=== PATIENT | female | born 1965 | race Caucasian/White ===

== ENCOUNTER 2022-03-31 14:16 | Oncology outpatient (recurring) (ONCR) | payer SELFPAY ==
--- NOTE | 2022-03-31 15:20 | N.ONRAD NP_ITS ---
Radiation Oncology Consultation Patient Name: Giacomo Plunkett Date of : 1965 Date of Service: 03/31/2022 Attending Physician: Saul Bridegs M.D. Giacomo Plunkett was seen in consultation this afternoon at the request of Raoul Ervin M.D. for the post-operative management of a recently diagnosed squamous cell carcinoma of the back. She was evaluated at [facility] for a skin lesion on her back. An examination identified a semi-pedunculated pink mass located within the left scapular region measuring 12 cm. An excision with partial intermediate layered closure was performed Flex Silva M.D. on December 19, 2021. 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 The tumor invaded the subcutaneous tissue and extended to the edges of the specimen. The depth of invasion was estimated to be at least 4.8 cm by gross measurement. During a routine post-operative appointment on February 25, 2022, an umbilicated, flesh-colored lesion was present at the left infero-lateral aspect of the excision during 2 cm. The abnormality was excised with local anesthesia. The patient was evaluated for postoperative radiotherapy. I discussed with Ms. Plunkett The [place] [employer] on Cancer Staging for skin cancer and specifically the pathological stage III (T3N0) corresponding to her disease and The National Comprehensive Cancer Network Guidelines recommendation for consideration of adjuvant radiotherapy in patients with completely excised very high-risk squamous cell carcinoma. I also reviewed the risk stratification for squamous cell skin cancer specific to her clinical case that includes high-risk features such as size, depth of invasion (greater than 6 mm), positive margins, and degree of differentiation. I would endorse an approximate a 4 week course of hypofractionated radiotherapy after the wound has healed. She will return in 4 weeks for re-assessment. The potential toxicities of integumentary radiotherapy were discussed with the patient. The patient has verbalized understanding would like to proceed as recommended. The patient's medical treatment plan was discussed with Raoul Ervin M.D. Signed by: Dr. Saul Bridges 03/31/2022 3:18:25 PM
== END 2022-04-19 23:59 | disposition home or self-care (01) ==
PROVIDERS: PCP Electrodiagnostic Medicine; Visit Provider Radiology Radiation Oncology
DX: C44.529 Squamous cell carcinoma of skin of other part of trunk (principal); F17.210 Nicotine dependence, cigarettes, uncomplicated; Z90.89 Acquired absence of other organs
CPT/HCPCS: 99205

== ENCOUNTER 2022-05-08 14:29 | Oncology outpatient (recurring) (ONCR) | payer SELFPAY ==
--- NOTE | 2022-05-08 15:09 | ONCRAD EPV_ITS ---
Radiation Oncology Follow-Up Note Patient Name: Giacomo Plunkett Date of : 1965 Date of Service: 05/08/2022 Attending Physician: Saul Bridges M.D. Giacomo Plunkett returned for a wound assessment. She was evaluated at [facility] for a skin lesion on her back. An examination identified a semi-pedunculated pink mass located within the left scapular region measuring 12 cm. An excision with partial intermediate layered closure was performed Flex Silva M.D. on December 19, 2021. 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 The tumor invaded the subcutaneous tissue and extended to the edges of the specimen. The depth of invasion was estimated to be at least 4.8 cm by gross measurement. During a routine post-operative appointment on February 25, 2022, an umbilicated, flesh-colored lesion was present at the left infero-lateral aspect of the excision during 2 cm. The abnormality was excised with local anesthesia. On examination, the medial wound is healing by secondary intention. She will return in two weeks for re-evaluation. Signed by: Dr. Saul Bridges 05/08/2022 3:08:23 PM
== END 2022-05-20 23:59 | disposition home or self-care (01) ==
PROVIDERS: PCP Electrodiagnostic Medicine; Visit Provider Radiology Radiation Oncology
DX: C44.529 Squamous cell carcinoma of skin of other part of trunk (principal)
CPT/HCPCS: 99213

== ENCOUNTER 2022-05-29 14:48 | Oncology outpatient (recurring) (ONCR) | payer SELFPAY ==
--- NOTE | 2022-05-29 15:17 | ONCRAD EPV_ITS ---
Radiation Oncology Follow-Up Note Patient Name: Giacomo Plunkett Date of : 1965 Date of Service: 05/29/2022 Attending Physician: Saul Bridges M.D. Giacomo Plunkett returned for a wound evaluation. She was evaluated at [facility] for a skin lesion on her back. An examination identified a semi-pedunculated pink mass located within the left scapular region measuring 12 cm. An excision with partial intermediate layered closure was performed Flex Sliva M.D. on December 19, 2021. 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 The tumor invaded the subcutaneous tissue and extended to the edges of the specimen. The depth of invasion was estimated to be at least 4.8 cm by gross measurement. During a routine post-operative appointment on February 25, 2022, an umbilicated, flesh-colored lesion was present at the left infero-lateral aspect of the excision during 2 cm. The abnormality was excised with local anesthesia. On examination, the open wound in the skin of the medial aspect of the back is slowly healing by secondary intention. At her request, she will return for a re-evaluation after a planned trip. Signed by: Dr. Saul Bridges 05/29/2022 3:16:42 PM
== END 2022-06-17 23:59 | disposition home or self-care (01) ==
LOC: ONCMED 14:53
PROVIDERS: PCP Electrodiagnostic Medicine; Visit Provider Radiology Radiation Oncology
DX: C44.529 Squamous cell carcinoma of skin of other part of trunk (principal)
CPT/HCPCS: 99213

== ENCOUNTER 2022-07-09 09:22 | Oncology outpatient (recurring) (ONCR) | payer SELFPAY | END 2022-07-18 23:59 | disposition home or self-care (01) | PROVIDERS: PCP Electrodiagnostic Medicine; Visit Provider Nurse Practitioner | DX: C44.529 Squamous cell carcinoma of skin of other part of trunk (principal) ==

== ENCOUNTER 2022-08-16 06:20 | Outpatient (CLI) | payer SELFPAY ==
--- NOTE | 2022-08-16 08:10 | PETR_ITS ---
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 Then, PET images were obtained. Attenuation corrected images were constructed using the CT scan. Fused images of PET and CT were reviewed. The standardized uptake values (SUV) reported below are maximum values within a region of interest, expressed in gm/ml. Exam includes orbital meatal line to mid-thigh. Radiopharmaceutical: 11.65 mCi F-18 FDG (Fluorodeoxyglucose), IV. Time of imaging post radiopharmaceutical administration: 1 hour Injection site: Right antecubital vein COMPARISON: No relevant prior studies available. FINDINGS: Brain: Visualized brain has normal physiologic uptake. Paranasal sinuses: No abnormal uptake. There is minimal mucosal thickening inferiorly in the left maxillary sinus with no air-fluid level. Pharynx: No abnormal uptake. Larynx: No abnormal uptake. Lungs, pleura and trachea: About 1 cm elongated focus of increased uptake of 6.3 SUV is a within right hilum or in the right upper lobe immediately adjacent to the hilum on image 57. There is diffusely heterogenous density of lung parenchyma. No pleural effusion. Heart: No abnormal uptake. There is no cardiomegaly. There is no pericardial effusion. Coronary arteries: No coronary artery calcification is visualized. Mediastinal space: No abnormal uptake. Liver: No abnormal uptake. Gallbladder and bile ducts: No abnormal uptake. Pancreas: No abnormal uptake. Spleen: No abnormal uptake. Adrenal glands: No abnormal uptake. Kidneys and ureters: Normal physiologic uptake. Stomach and bowel: Long segment of increased uptake in the cecum with no corresponding CT abnormality is likely benign. No abnormal dilatation of the bowel. Vasculature: No abnormal uptake. Lymph nodes: There is a large cluster of multiple masses in the left axilla and the upper outer quadrant of the left breast with the highest uptake of 23 SUV and the largest mass measuring about 10 cm representing either malignant lymphadenopathy or extranodal soft tissue malignant masses. Multiple smaller nodules measuring up to 1.2 cm in the left subpectoralis and infraclavicular area show increased uptake up to 7.1 SUV. There are 2 FDG avid masses in the left posterior neck including 5.2 x 4.5 cm tumor between the paraspinal muscles and the left trapezius with maximal uptake of 17.8 SUV and 2.5 x 2.2 cm or superficial mass within the subcutaneous fat adjacent to the left trapezius muscle with the highest uptake of 13.9 SUV. No FDG avid lymphadenopathy in the abdomen, pelvis, in the right axilla and in the groins. Bones/joints: No abnormal uptake in the visualized axial and appendicular skeleton. Soft tissues: Diffuse linear skin thickening in the left breast with mildly increased uptake up to 3.4 SUV is benign likely secondary to bulky disease in the left axilla described above in lymph nodes . 1 cm round focus of increased uptake of 6.6 SUV in the subcutaneous fat of the right groin on image 161 with no definite corresponding solid abnormality on CT is indeterminate, questionably inflammatory for correlation with physical exam. About 1.5 cm focus of haziness of the subcutaneous fat in the right lateral abdominal wall on image 106 with the highest uptake of 2.7 SUV is probably benign. Small linear area of skin thickening in the right inferior gluteal area on image 157 with mildly increased uptake of 2.5 SUV is likely benign. Subcentimeter focus of slightly increased uptake of 2.9 SUV within the left ear lobe posteriorly on image 10 is probably benign. Non FDG avid 3.6 cm round subcutaneous cystic nodule in the left shoulder on image 14 is indeterminate. [facility] [id number] IMPRESSION: 1. There is FDG avid malignancy as follows: -Bulky conglomerate of malignant masses in the left axilla (possible lymphadenopathy) with multiple smaller left sub pectoralis and infraclavicular nodules with overall highest uptake of 23 SUV; -Ttwo masses in the left posterior lower neck (lymphadenopathy or extranodal masses) measuring 5.2 cm and 2.5 cm with the highest uptake of 17.8 SUV and 13.9 SUV respectively; -Small right hilar or perihilar nodule in the right lung with abnormal uptake of 6.3 SUV, hilar lymph node versus central lung metastasis. 2. No abnormal uptake within 3.6 cm cystic subcutaneous nodule in the left shoulder. There is reported history of cyst resection from the shoulder. Current finding may represent a recurrence cyst or postsurgical fluid collection. 3. Small FDG avid cutaneous and subcutaneous findings in the right groin, right gluteal skin, in the subcutaneous fat in the right lateral abdominal wall and posteriorly in the left ear lobe are probably benign.
== END 2022-08-16 06:21 | disposition home or self-care (01) ==
LOC: RAD 08-18 06:20
PROVIDERS: PCP Electrodiagnostic Medicine; Visit Provider Nurse Practitioner
DX: R59.1 Generalized enlarged lymph nodes (principal)
CPT/HCPCS: 78815; A9552

== ENCOUNTER 2022-09-10 09:32 | Oncology outpatient (recurring) (ONCR) | payer SELFPAY ==
[2022-09-03 08:06] VITALS: BP 125/78; PULSE 93; RESP 16; TEMP 36.3; O2SAT 97
[2022-09-03 08:43] LABS: Basophils % 0.5 %; Eosinophils # 0.4 10^3/uL (0.0-0.8); Eosinophils % 4.6 %; Hematocrit 35.1 % (37.0-47.0); Hemoglobin 10.9 g/dL (11.5-15.3); Lymphocytes # 0.7 10^3/uL (0.8-4.8); Mean Corpuscular HGB Conc 31.1 g/dL (30.0-36.0); Mean Corpuscular Hemoglobin 26.8 pg (28.0-34.0); Mean Corpuscular Volume 86.5 fl (81-99); Mean Platelet Volume 9.3 fL (7.4-10.4); Monocytes # 0.6 10^3/uL (0.2-0.9); Monocytes % 7.2 %; Neutrophils # 6.72 10^3/uL (1.8-7.7); Neutrophils % 79.3 %; Nucleated Red Blood Cells % 0 %; Platelet Count 498 10^3/cmm (130-400); Red Blood Count 4.06 10^6/uL (4.1-5.3); Red Cell Distribution Width 14.9 % (12.1-15.1); White Blood Count 8.5 10^3/uL (4.0-10.0)
[2022-09-03 09:22] LABS: Hepatitis A Antibody IgM Non-Reactive (Nonreactive); Hepatitis B Surface Antigen Non-Reactive (Nonreactive); Hepatitis C Virus Antibody Non-Reactive (Nonreactive)
[2022-09-03 09:28] LABS: Alanine Aminotransferase < 5 U/L (0-33); Albumin Level 3.6 g/dL (3.5-5.2); Alkaline Phosphatase 105 U/L (35-105); Anion Gap 15.3 (5-19); Aspartate Amino Transferase 11 U/L (0-32); Blood Urea Nitrogen 11 mg/dL (6-20); Calcium 9.2 mg/dL (8.5-10.5); Carbon Dioxide 27 mmol/L (22-29); Chloride 99 mmol/L (98-107); Globulin 4.4 g/dL (1.3-4.6); Glomerular Filtration Rate 74.5 mL/min (90-130); Glucose 107 mg/dL (65-115); Immunoglobulin IGG 1517 mg/dL (700-1600); Osmolality Calculated 284 mOsm/kg (285-295); Potassium 4.3 mmol/L (3.5-5.1); Sodium 137 mmol/L (136-145); Thyroid Stimulating Hormone 3.66 uIU/mL (0.27-4.20); Total Bilirubin 0.2 mg/dL (0.15-1.2)
[2022-09-03 09:59] LABS: Hepatitis B Core AB, Total Reactive (Nonreactive)
[2022-09-03] MEDS: sodium chloride 0.9% (100 ml) 100 ML 75 ML (10:50)
[2022-09-03] MEDS: ondansetron 4 MG Tablet 8 MG PO (10:50)
[2022-09-03] MEDS: cemiplimab-rwlc 350 MG in sodium chloride 0.9% 250 ML 500 MG IV (11:30)
[2022-09-03 12:04] VITALS: BP 113/72; PULSE 81; RESP 16; TEMP 36.8; O2SAT 93
[2022-09-10 10:15] LABS: Basophils % 0.4 %; Eosinophils # 0.4 10^3/uL (0.0-0.8); Eosinophils % 5.2 %; Hematocrit 32.8 % (37.0-47.0); Lymphocytes # 0.5 10^3/uL (0.8-4.8); Lymphocytes % 6.1 %; Mean Corpuscular HGB Conc 30.5 g/dL (30.0-36.0); Mean Corpuscular Hemoglobin 26.3 pg (28.0-34.0); Mean Corpuscular Volume 86.3 fl (81-99); Mean Platelet Volume 8.4 fL (7.4-10.4); Monocytes # 0.6 10^3/uL (0.2-0.9); Monocytes % 7.5 %; Neutrophils # 5.99 10^3/uL (1.8-7.7); Neutrophils % 80.1 %; Nucleated Red Blood Cells % 0 %; Platelet Count 434 10^3/cmm (130-400); Red Cell Distribution Width 15.2 % (12.1-15.1); White Blood Count 7.5 10^3/uL (4.0-10.0)
[2022-09-10 10:38] LABS: Alanine Aminotransferase < 5 U/L (0-33); Albumin Level 3.2 g/dL (3.5-5.2); Alkaline Phosphatase 77 U/L (35-105); Anion Gap 14.2 (5-19); Aspartate Amino Transferase 8 U/L (0-32); Blood Urea Nitrogen 9 mg/dL (6-20); Calcium 8.1 mg/dL (8.5-10.5); Carbon Dioxide 28 mmol/L (22-29); Chloride 95 mmol/L (98-107); Globulin 3.9 g/dL (1.3-4.6); Glucose 126 mg/dL (65-115); Osmolality Calculated 276 mOsm/kg (285-295); Potassium 4.2 mmol/L (3.5-5.1); Sodium 133 mmol/L (136-145); Thyroid Stimulating Hormone 2.72 uIU/mL (0.27-4.20); Total Bilirubin 0.2 mg/dL (0.15-1.2); Total Protein 7.1 g/dL (6.6-8.7)
[2022-09-10 12:05] LABS: Iron 17 ug/dL (37-145); Percent Saturation 8.1 % (20-50); Total Iron Binding Capacity 208 mcg/dl; Unsaturated Iron Binding 191 ug/dL (112-347)
== END 2022-09-17 23:59 | disposition home or self-care (01) ==
PROVIDERS: Internal Medicine Medical Oncology; Nurse Practitioner Family; PCP Electrodiagnostic Medicine; Visit Provider Nurse Practitioner
DX: C44.529 Squamous cell carcinoma of skin of other part of trunk (principal); D64.9 Anemia, unspecified
CPT/HCPCS: 36415; 80053; 82784; 83540; 83550; 84443; 85025; 86705; 86706; 86709; 86803; 87340; 96413; J7050; J9119; Q0162

== ENCOUNTER 2022-10-15 14:30 | Oncology outpatient (recurring) (ONCR) | payer SELFPAY ==
[2022-09-24 13:30] VITALS: BP 112/71; PULSE 90; RESP 16; TEMP 36.7; O2SAT 97
[2022-09-24] MEDS: ondansetron 4 MG Tablet 8 MG PO (13:46)
[2022-09-24] MEDS: sodium chloride 0.9% 250 ML 75 ML IV (13:47)
[2022-09-24 13:51] LABS: Basophils % 0.5 %; Eosinophils # 0.3 10^3/uL (0.0-0.8); Eosinophils % 5.5 %; Hematocrit 33.5 % (37.0-47.0); Hemoglobin 10.3 g/dL (11.5-15.3); Lymphocytes # 0.6 10^3/uL (0.8-4.8); Lymphocytes % 9.9 %; Mean Corpuscular HGB Conc 30.7 g/dL (30.0-36.0); Mean Corpuscular Hemoglobin 26.5 pg (28.0-34.0); Mean Corpuscular Volume 86.1 fl (81-99); Mean Platelet Volume 8.9 fL (7.4-10.4); Monocytes # 0.5 10^3/uL (0.2-0.9); Monocytes % 8.5 %; Neutrophils # 4.61 10^3/uL (1.8-7.7); Neutrophils % 74.9 %; Nucleated Red Blood Cells % 0 %; Platelet Count 442 10^3/cmm (130-400); Red Blood Count 3.89 10^6/uL (4.1-5.3); Red Cell Distribution Width 16.4 % (12.1-15.1); White Blood Count 6.2 10^3/uL (4.0-10.0)
[2022-09-24] MEDS: cemiplimab-rwlc 350 MG in sodium chloride 0.9% 250 ML 500 MG IV (13:54)
[2022-09-24 14:23] LABS: Alanine Aminotransferase < 5 U/L (0-33); Albumin Level 3.5 g/dL (3.5-5.2); Alkaline Phosphatase 70 U/L (35-105); Blood Urea Nitrogen 6 mg/dL (6-20); Calcium 8.6 mg/dL (8.5-10.5); Carbon Dioxide 26 mmol/L (22-29); Chloride 98 mmol/L (98-107); Globulin 3.7 g/dL (1.3-4.6); Glomerular Filtration Rate 74.5 mL/min (90-130); Glucose 103 mg/dL (65-115); Osmolality Calculated 278 mOsm/kg (285-295); Sodium 135 mmol/L (136-145); Thyroid Stimulating Hormone 2.25 uIU/mL (0.27-4.20); Total Bilirubin 0.2 mg/dL (0.15-1.2); Total Protein 7.2 g/dL (6.6-8.7)
[2022-09-24 14:30] VITALS: BP 110/68; PULSE 78; RESP 16; TEMP 1425; TEMP 773.8; O2SAT 94
[2022-09-24 14:33] LABS: Aspartate Amino Transferase 9 U/L (0-32)
[2022-10-14 14:48] VITALS: BP 158/81; PULSE 82; RESP 18; TEMP 36.6; O2SAT 95
[2022-10-14 15:10] LABS: Basophils % 0.8 %; Eosinophils # 0.4 10^3/uL (0.0-0.8); Hematocrit 36.2 % (37.0-47.0); Hemoglobin 10.9 g/dL (11.5-15.3); Lymphocytes # 0.7 10^3/uL (0.8-4.8); Lymphocytes % 12.4 %; Mean Corpuscular HGB Conc 30.1 g/dL (30.0-36.0); Mean Corpuscular Hemoglobin 26.2 pg (28.0-34.0); Monocytes # 0.4 10^3/uL (0.2-0.9); Monocytes % 7.2 %; Neutrophils # 3.75 10^3/uL (1.8-7.7); Neutrophils % 71.2 %; Nucleated Red Blood Cells % 0 %; Platelet Count 372 10^3/cmm (130-400); Red Blood Count 4.16 10^6/uL (4.1-5.3); Red Cell Distribution Width 17.2 % (12.1-15.1); White Blood Count 5.3 10^3/uL (4.0-10.0)
[2022-10-14 15:33] LABS: Alanine Aminotransferase < 5 U/L (0-33); Albumin Level 3.6 g/dL (3.5-5.2); Alkaline Phosphatase 76 U/L (35-105); Anion Gap 14.4 (5-19); Aspartate Amino Transferase 13 U/L (0-32); Blood Urea Nitrogen 11 mg/dL (6-20); Calcium 8.6 mg/dL (8.5-10.5); Carbon Dioxide 29 mmol/L (22-29); Chloride 100 mmol/L (98-107); Globulin 3.3 g/dL (1.3-4.6); Glomerular Filtration Rate 74.5 mL/min (90-130); Glucose 99 mg/dL (65-115); Osmolality Calculated 287 mOsm/kg (285-295); Potassium 4.4 mmol/L (3.5-5.1); Sodium 139 mmol/L (136-145); Total Bilirubin 0.2 mg/dL (0.15-1.2); Total Protein 6.9 g/dL (6.6-8.7)
[2022-10-15] MEDS: sodium chloride 0.9% 250 ML 75 ML IV (15:00)
[2022-10-15] MEDS: ondansetron 4 MG Tablet 8 MG PO (15:01)
[2022-10-15] MEDS: cemiplimab-rwlc 350 MG in sodium chloride 0.9% 250 ML 500 MG IV (15:07)
== END 2022-10-17 23:59 | disposition home or self-care (01) ==
PROVIDERS: PCP Electrodiagnostic Medicine; Visit Provider Nurse Practitioner
DX: Z51.11 Encounter for antineoplastic chemotherapy (principal); C44.529 Squamous cell carcinoma of skin of other part of trunk
CPT/HCPCS: 36415; 80053; 84443; 85025; 96409; 96413; J7050; J9119; Q0162

== ENCOUNTER 2022-11-05 14:16 | Oncology outpatient (recurring) (ONCR) | payer SELFPAY ==
[2022-11-05 15:00] VITALS: BP 122/74; PULSE 96; RESP 16; TEMP 37.1; O2SAT 96
[2022-11-05] MEDS: ondansetron 4 MG Tablet 8 MG PO (15:08)
[2022-11-05] MEDS: sodium chloride 0.9% 250 ML 100 ML IV (15:15)
[2022-11-05] MEDS: cemiplimab-rwlc 350 MG in sodium chloride 0.9% 250 ML 500 MG IV (15:24)
== END 2022-11-17 23:59 | disposition home or self-care (01) ==
LOC: ONCMED 14:16
PROVIDERS: PCP Electrodiagnostic Medicine; Visit Provider Nurse Practitioner
DX: Z51.11 Encounter for antineoplastic chemotherapy (principal); C44.529 Squamous cell carcinoma of skin of other part of trunk
CPT/HCPCS: 96413; J7050; J9119; Q0162

== ENCOUNTER → 2022-11-27 11:44 | Day surgery (SDC) | payer SELFPAY ==
--- NOTE | 2022-11-27 11:45 | XR_ITS ---
WS: [id number] XR chest 1V portable [id number] REASON FOR EXAM: Post PICC insertion FINDINGS: Right arm PICC line placement. Tip of the catheter is well within the superior vena cava. Proper position for use. IMPRESSION: Right arm PICC line placement with the tip in the superior vena cava. Position was discussed with the production control technologist over the phone and The line will be advanced cm to provide absolute optimum position. 12:45 p.m. 11/27/2022.
[2022-11-27 12:00] VITALS: BP 158/79; PULSE 97; RESP 18; TEMP 36.3; O2SAT 98
--- NOTE | 2022-11-27 12:30 | PC.NURSE ---
Pt referred to OPS/GI for PICC insertion. Pt Oncology patient and will be starting chemotherapy. Right arm assessed. Right basilic vein 4 mm, appeared straight, and best choice for placement. Informed consent obtained from pt spouse. Pt alert and oriented but unable to sign. Risks and benefits discussed with patient, spouse, and daughter. Using sterile technique and MST, right basilic vein accessed x 1 stick. Mid-arm circumference measured 10 cm from right AC 36 cm. Trimmed cath length 43 cm with 0 cm external length noted. CXR shows tip in SVC, in good position for use per radiologist. Line secured with stat-lock. Insertion site covered with Biopatch and TSM. [facility]22 at 11:30 for PICC dressing change.
== END ==
PROVIDERS: PCP Electrodiagnostic Medicine; Visit Provider Internal Medicine Medical Oncology
DX: C44.529 Squamous cell carcinoma of skin of other part of trunk (principal); Z95.9 Presence of cardiac and vascular implant and graft, unspecified
CPT/HCPCS: 36573; 71045

== ENCOUNTER 2022-12-06 08:00 | Inpatient (IN) | payer SELFPAY ==
[2022-12-06] VITALS (15 sets, daily range): BP systolic 108–117; BP diastolic 46–57; PULSE 70–114; RESP 16–24; TEMP 36.1–37.4; O2SAT 72–98
--- NOTE | 2022-12-06 08:24 | CTR_ITS ---
PROCEDURE INFORMATION: Exam: CT Head Without Contrast Exam date and time: 12/06/2022 10:09 AM Age: 57 years old Clinical indication: Weakness, extremity TECHNIQUE: Imaging protocol: Computed tomography of the head without contrast. Radiation optimization: All CT scans at this facility use at least one of these dose optimization techniques: automated exposure control; mA and/or kV adjustment per patient size (includes targeted exams where dose is matched to clinical indication); or iterative reconstruction. REPORTING DATA: Count of CT and Cardiac NM exams in prior 12 months: This patient has received [address] and 0 known cardiac nuclear medicine studies in the 12 months prior to the current study. COMPARISON: PT PET skulltothi INITIAL [id number] 08/16/2022 10:32 AM RADIATION DOSE METRICS: Total DLP (mGy-cm): 913.6 FINDINGS: Brain: The brain is unremarkable. There is no mass effect or significant white matter disease. There is no acute intracranial hemorrhage. Cerebral ventricles: There is no significant ventricular dilation. The basal cisterns are unremarkable. Paranasal sinuses: There is mucosal thickening in the left maxillary sinus. Paranasal sinuses are otherwise clear. Mastoid air cells: The mastoid air cells are clear. Bones/joints: The calvarium is intact. Soft tissues: There is a 10 mm dermal nodule in the left parietal scalp. CT/CT head wo con* [id number] IMPRESSION: No acute intracranial abnormality.
--- NOTE | 2022-12-06 08:24 | XRR_ITS ---
PROCEDURE INFORMATION: Exam: XR Chest Exam date and time: 12/06/2022 9:19 AM Age: 57 years old Clinical indication: Other: Weakness TECHNIQUE: Imaging protocol: Radiologic exam of the chest. Views: 1 view. COMPARISON: CR XR chest 1V portable [id number] 11/27/2022 12:38 PM FINDINGS: Tubes, catheters and devices: Right upper extremity PICC stable in position terminates at the lower SVC. Lungs: Mild streaky left lower lung zone opacification. No consolidation. Pleural spaces: No pleural effusion or pneumothorax. Heart/Mediastinum: Unremarkable. No cardiomegaly. Bones/joints: Unremarkable. XR/XR chest 1V portable [id number] IMPRESSION: Mild streaky left lower lung zone opacification may represent atelectasis, although early developing pneumonia could appear similar.
--- NOTE | 2022-12-06 08:25 | ECG_ITS ---
[facility] Test Date: 2022-12-06 Pat Name: Giacomo Plunkett Department: Room: Gender: Female [employer] Department Manager: : 1965 Requested By: Billy Pabon Order Number: [id number] Guerrero MD: Naila Monsalve M.D. Measurements Intervals Ramsay Rate: 110 P: 46 MI: 141 QRS: 3 QRSD: 82 T: 140 QT: 296 QTc: 401 Interpretive Statements SINUS TACHYCARDIA LOW QRS VOLTAGE IN PRECORDIAL LEADS [QRS DEFLECTION < 1.0 mV IN CHEST LEADS] POSSIBLE ANTERIOR MYOCARDIAL INFARCTION , OF INDETERMINATE AGE [30 ms Q WAVE IN V3/V4, OR R < 0.2 mV IN V4] No previous ECG available for comparison Electronically Signed On 12-06-2022 12:09:37 CDT by Naila Monsalve M.D. [email or web address]
--- NOTE | 2022-12-06 08:46 | W.ED.WEAKNES ---
HPI - Weakness General: Chief complaint: Weakness Stated complaint: weak, swollen, cancer diagnosis Time Seen by Provider: 12/06/22 08:11 History of Present Illness: 57-year-old female presents emergency department chief complaint of generalized weakness and fatigue she apparently just received her first dose of chemotherapy earlier this week for squamous cell carcinoma. Patient brought in by family as she developing some swelling located to her left upper arm she also reports significant weakness and fatigue which the family reports unable to take care of her. Patient reports no recent fevers or chills does not endorse any shortness of breath or chest pain or abdominal pain or diarrhea patient presents to the ER for further assessment and management. Associated symptoms: Denies chest pain, chills, fever(s), headache(s), nausea or vomiting Review of Systems General: Reports: 10 or more systems reviewed and unremarkable except in HPI and below Const: Reports: fatigue and malaise; Denies: fever(s) or chills Eyes: Denies: change in vision or blurry vision Card: Denies: chest pain or palpitations Resp: Denies: dyspnea or productive cough GI: Denies: abdominal pain, nausea or vomiting : Denies: flank pain Musc: Denies: extremity pain or extremity swelling Skin/Breast: Reports: rash; Denies: pruritus Neuro: Denies: headache(s) Psych: Denies: anxiety or depression Kirk/Lymph: Denies: easy bleeding All/Imm: Denies: urticaria, throat swelling or facial swelling [facility] ED PFSH: Medical History History of sebaceous cyst Surgical History History of delivery (1992) Family History Father Cancer Hyperlipidemia Hypertension Stroke Other CAD (coronary artery disease) Denies family history of Diabetes Clotting disorder Dementia Psychiatric illness Chronic kidney disease (CKD) Suicide Anesthesia complication Bleeding disorder Lung disease Social History Smoking and tobacco status: current every day smoker cigarettes Packs smoked per day: 0.5 Years cigarettes smoked: 35 Alcohol intake: never Physical Exam Const: COMMON NORMALS: no acute distress (Flat affect appreciated afebrile nontoxic), patient oriented x3 and healthy appearing HENMT: COMMON NORMALS: normocephalic and atraumatic HEAD & SCALP: normocephalic and atraumatic Eye: COMMON NORMALS: Equal, round and reactive pupils present and EOMs intact bilaterally PUPIL: Yes Equal, round and reactive pupils present Neck/C-Spine: COMMON NORMALS: full ROM, supple and no JVD Lymph: LYMPHATIC: no lymphadenopathy noted Chest: COMMONS NORMALS: normal inspection of the chest and normal palpation of entire chest wall Resp: COMMON NORMALS: normal respiratory effort, No retractions and clear to auscultation bilaterally EFFORT & INSPECTION: Yes able to speak in complete sentences and Yes symmetric chest movement AUSCULTATION: clear to auscultation bilaterally Cardio: COMMON NORMALS: no JVD, regular rate and regular rhythm RATE: regular rate RHYTHM: regular rhythm GI: COMMON NORMALS: Normal to inspection, nondistended, normoactive bowel sounds present, Soft to palpation and non-tender INSPECTION: Yes normal to inspection PALPATION: Yes Soft to palpation : COMMON NORMALS: Yes no CVA tenderness BLADDER/KIDNEY EXAM: Yes no CVA tenderness Back/Pelvis: COMMON NORMALS: no CVA tenderness Extremity: COMMON NORMALS: normal to inspection and full ROM Neuro: COMMON NORMALS: patient oriented x3, CN's II-XII intact bilaterally, moves all extremities and no focal motor deficits Psych: COMMON NORMALS: mental status grossly normal, Normal thought process present, cooperative and normal affect THOUGHT PROCESS: Normal thought process present Skin: NARRATIVE SKIN EXAM: Obvious swelling noted to the left breast with edema going down the left arm. With moderate erythema present Course Vital Signs: Vital signs: Vital Signs Temperature 97.0 F L 12/06/22 08:09 Pulse Rate 114 H 12/06/22 08:09 Respiratory Rate 16 12/06/22 08:09 Pulse Oximetry 94 12/06/22 08:09 Oxygen Delivery Me thod Room Air 12/06/22 08:09 MDM - Weakness Medical Decision Making Due to the patient's significant symptoms and condition lab work and will be obtained we will continue to follow. Patient was found to have a mild case of superficial thrombophlebitis of the left arm patient did have an elevated troponin of greater than thousand with no significant EKG changes patient was started on a heparin drip for possible NSTEMI versus pulmonary embolism. Patient CT angiogram of the chest came back negative. Discussed the patient's case with Dr. Connolly hospitalist is granted acceptance the patient will be admitted to the CCU. Lab Data 12/06/22 08:50 12/06/22 08:50 Radiology Impressions Chest X-Ray 12/06/22 08:24 IMPRESSION: Mild streaky left lower lung zone opacification may represent atelectasis, although early developing pneumonia could appear similar. Head CT 12/06/22 08:24 IMPRESSION: No acute intracranial abnormality. Venous Duplex 12/06/22 09:04 IMPRESSION: 1. No evidence of deep vein thrombosis. 2. Superficial thrombus within the basilic vein. Chest/Abdomen/Pelvis CTA 12/06/22 10:03 IMPRESSION: 1. No acute pulmonary findings. 2. Significant interval increase of numerous left-sided masses centered at the axilla with largest mass partially visualized measuring at least 15.7 cm, previously 10 cm in maximal dimension in July 2022. 3. 2.5 cm lateral left upper subpleural nodule extends through the 2nd intercostal space and musculature from adjacent extrathoracic axilla. 4. Stable 5 mm left upper lobe nodule. 5. Additional chronic and incidental findings as above. IMPRESSION: 1. No acute findings. 2. Hepatosplenomegaly. Laboratory Results WBC 11.4 10^3/uL (4.0-10.0) H 12/06/22 08:50 RBC 3.66 10^6/uL (4.1-5.3) L 12/06/22 08:50 Hgb 10.8 g/dL (11.5-15.3) L 12/06/22 08:50 Hct 32.3 % (37.0-47.0) L 12/06/22 08:50 MCV 88.3 fl (81-99) 12/06/22 08:50 MCH 29.5 pg (28.0-34.0) 12/06/22 08:50 MCHC 33.4 g/dL (30.0-36.0) 12/06/22 08:50 RDW 19.4 % (12.1-15.1) H 12/06/22 08:50 Plt Count 224 10^3/cmm (130-400) 12/06/22 08:50 MPV 9.7 fL (7.4-10.4) 12/06/22 08:50 Neut % (Auto) 95.1 % 12/06/22 08:50 Lymph % (Auto) 1.1 % 12/06/22 08:50 [place] % (Auto) 1.6 % 12/06/22 08:50 Eos % (Auto) 1.3 % 12/06/22 08:50 Baso % (Auto) 0.9 % 12/06/22 08:50 Neut # (Auto) 8.86 10^3/uL (1.8-7.7) H 12/06/22 08:50 Lymph # (Auto) 0.1 10^3/uL (0.8-4.8) L 12/06/22 08:50 [place] # (Auto) 0.2 10^3/uL (0.2-0.9) 12/06/22 08:50 Eos # (Auto) 0.2 10^3/uL (0.0-0.8) 12/06/22 08:50 Baso # (Auto) 0.1 10^3/uL (0.0-0.1) 12/06/22 08:50 Nucleated RBC % (auto) 0 % 12/06/22 08:50 Nucleated RBCs # 0.0 /100WBC 12/06/22 08:50 APTT 30.8 SECONDS (23.9-36.7) 12/06/22 08:50 Sodium 122 mmol/L (136-145) L 12/06/22 08:50 Potassium 5.6 mmol/L (3.5-5.1) H 12/06/22 08:50 Chloride 86 mmol/L (98-107) L 12/06/22 08:50 Carbon Dioxide 26 mmol/L (22-29) 12/06/22 08:50 Anion Gap 15.6 (5-19) 12/06/22 08:50 BUN 36 mg/dL (6-20) H 12/06/22 08:50 Creatinine 1.4 mg/dL (0.5-0.9) H 12/06/22 08:50 GFR Calculation 39.0 mL/min (90-130) L 12/06/22 08:50 Glucose 118 mg/dL (65-115) H 12/06/22 08:50 Calculated Osmolality 263 mOsm/kg (285-295) L 12/06/22 08:50 Lactic Acid 1.9 mmol/L (0.5-2.2) 12/06/22 08:50 Calcium 7.7 mg/dL (8.5-10.5) L 12/06/22 08:50 Total Bilirubin 0.5 mg/dL (0.15-1.2) 12/06/22 08:50 AST 47 U/L (0-32) H 12/06/22 08:50 ALT 15 U/L (0-33) 12/06/22 08:50 Alkaline Phosphatase 77 U/L (35-105) 12/06/22 08:50 Troponin T Baseline 1076 ng/L (0-10) H* 12/06/22 08:50 Troponin T 120 Minute 746.2 ng/L (0-10) H 12/06/22 11:08 Delta Troponin T -329.8 ABS# (0-10) L 12/06/22 11:08 C-Reactive Protein 365.3 mg/L (0.0-4.9) H 12/06/22 08:50 NT-Pro-B Natriuret Pep 801 pg/mL (0-125) H 12/06/22 08:50 Total Protein 6.0 g/dL (6.6-8.7) L 12/06/22 08:50 Albumin 2.9 g/dL (3.5-5.2) L 12/06/22 08:50 Globulin 3.1 g/dL (1.3-4.6) 12/06/22 08:50 Lipase 25 U/L (13-60) 12/06/22 08:50 Urine Color Straw (Yellow) 12/06/22 11:40 Urine Appearance Clear (CLEAR) 12/06/22 11:40 Urine pH 8 (5-7) H 12/06/22 11:40 Ur Specific [place] 1.005 (1.005-1.030) 12/06/22 11:40 Urine Protein Trace (Negative) 12/06/22 11:40 Urine Glucose (UA) Norm (Normal) 12/06/22 11:40 Urine Ketones Negative (Negative) 12/06/22 11:40 Urine Blood 3+ (Negative) H 12/06/22 11:40 Urine Nitrate Negative (Negative) 12/06/22 11:40 Urine Bilirubin Neg (Negative) 12/06/22 11:40 Prot Sulfosalicylic Acd Positive (Negative) 12/06/22 11:40 Urine Urobilinogen Norm mg/dL (Negative) 12/06/22 11:40 Ur Leukocyte Esterase Negative (Negative) 12/06/22 11:40 Urine RBC 5-10 /hpf (0-2) H 12/06/22 11:40 Urine WBC 0-4 /hpf (0-5) H 12/06/22 11:40 Ur Squamous Epith Cells 5-10 /hpf (0-5) H 12/06/22 11:40 Amorphous Sediment Not Reportable 12/06/22 11:40 Urine Bacteria 2+ /hpf (NONE) H 12/06/22 11:40 Discharge Plan Discharge Patient Disposition: Admitted As Inpatient Admit Provider: Ata Connolly Clinical Impression: Non-ST elevated myocardial infarction (non-STEMI), Acute hyperkalemia, Patient on antineoplastic chemotherapy regimen, Squamous cell carcinoma Condition: Stable Coding Level of Care Code ED Check Airman for Naima Pruitt
--- NOTE | 2022-12-06 08:53 | PC.PHAR ---
PTS AND PTS DAUGHTER MELI VERIFIED PTS MEDICATIONS-PTS STATES THE PT WAS SUPPOSE TO HAVE CHEMO ON Thursday12/01/22 BUT STATES NO ONE TOLD THEM THEY NEEDED TO TAKE THE DEXAMETHASONE PRIOR TO TAXOL TREATMENT PTS STATES THE CHEMO WAS MOVED TO Thursday12/02/22-PTS DAUGHTER MELI STATES THE PT WAS TAKING IRON 325MG DAILY BUT STATES SHE STOP TAKING ON Thursday12/01/22-PTS STATES PUT THE PTS GABAPENTIN 300MG TID FILLED 11/18/22 30D/S,MOBIC 15MG DAILY FILLED 11/25/22 30D/S,OXYCODONE 15MG QID PRN FILLED 11/18/22 30D/S ON HOLD-PTS STATES THE PT HAS ONLY TAKEN LEVOTHYROXINE 75MCG DAILY SINCE THURSDAY-PTS DAUGHTER STATES THE PT HAS LORAZEPAM 1MG AND ZOFRAN ODT 4MG FOR PRN USE BUT STATES THE PT HASNT BEEN USING STATES THE PT HAS BEEN USING THE PROCHLORPERAZINE-NOTES ARE MADE IN THE PHARMACY COMMENTS
--- NOTE | 2022-12-06 09:04 | USR_ITS ---
PROCEDURE INFORMATION: Exam: US Duplex Left Upper Extremity Veins, Limited Exam date and time: 12/06/2022 9:26 AM Age: 57 years old Clinical indication: Swelling (edema) of limb; Upper extremity, left; Additional info: Swelling with pain TECHNIQUE: Imaging protocol: Real-time duplex ultrasound of the left extremity with 2-D paz scale, color Doppler flow and spectral waveform analysis including responses to compression and other maneuvers (when performed) with image documentation. Limited exam focused on the left upper extremity veins. [facility] [id number] 08/16/2022 10:32 AM FINDINGS: Left deep veins: Unremarkable. Axillary and brachial veins are patent throughout without thrombus. Normal Doppler waveforms. Normal compressibility and/or augmentation response. Visualized internal jugular and subclavian veins are patent. Superficial veins: Basilic vein shows noncompressibility with hypoechoic thrombus. Visualized cephalic vein is patent without thrombus. Soft tissues: Subcutaneous edema. US/[id number] IMPRESSION: 1. No evidence of deep vein thrombosis. 2. Superficial thrombus within the basilic vein.
[2022-12-06 09:06] LABS: Basophils # 0.1 10^3/uL (0.0-0.1); Basophils % 0.9 %; Eosinophils # 0.2 10^3/uL (0.0-0.8); Eosinophils % 1.3 %; Hematocrit 32.3 % (37.0-47.0); Hemoglobin 10.8 g/dL (11.5-15.3); Lymphocytes # 0.1 10^3/uL (0.8-4.8); Lymphocytes % 1.1 %; Mean Corpuscular HGB Conc 33.4 g/dL (30.0-36.0); Mean Corpuscular Hemoglobin 29.5 pg (28.0-34.0); Mean Corpuscular Volume 88.3 fl (81-99); Mean Platelet Volume 9.7 fL (7.4-10.4); Monocytes # 0.2 10^3/uL (0.2-0.9); Monocytes % 1.6 %; Neutrophils # 8.86 10^3/uL (1.8-7.7); Nucleated Red Blood Cells % 0 %; Platelet Count 224 10^3/cmm (130-400); Red Blood Count 3.66 10^6/uL (4.1-5.3); Red Cell Distribution Width 19.4 % (12.1-15.1); White Blood Count 11.4 10^3/uL (4.0-10.0)
[2022-12-06] MEDS: sodium chloride 0.9% 1,000 ML 999 ML IV (09:15)
--- NOTE | 2022-12-06 09:19 | PC.NURSE ---
Pt moved from wheelchair to bed with nurse and nurse tech assist. Pt was positioned with pillows and blankets so that she was more comfortable.
[2022-12-06 09:35] LABS: Lactic Sepsis W/Reflex 1.9 mmol/L (0.5-2.2)
[2022-12-06 09:42] LABS: Alanine Aminotransferase 15 U/L (0-33); Albumin Level 2.9 g/dL (3.5-5.2); Alkaline Phosphatase 77 U/L (35-105); Blood Urea Nitrogen 36 mg/dL (6-20); Calcium 7.7 mg/dL (8.5-10.5); Carbon Dioxide 26 mmol/L (22-29); Chloride 86 mmol/L (98-107); Globulin 3.1 g/dL (1.3-4.6); Glucose 118 mg/dL (65-115); Lipase 25 U/L (13-60); NT Pro B Type Natriuretic Pept 801 pg/mL (0-125); Osmolality Calculated 263 mOsm/kg (285-295); Sodium 122 mmol/L (136-145); Total Bilirubin 0.5 mg/dL (0.15-1.2)
[2022-12-06 09:51] LABS: Anion Gap 15.6 (5-19); Aspartate Amino Transferase 47 U/L (0-32); Potassium 5.6 mmol/L (3.5-5.1)
[2022-12-06] MEDS: cefTRIAXone 1,000 MG in sodium chloride 0.9% (plus) 50 ML 100 MG IV (09:51)
[2022-12-06 09:53] LABS: Troponin(5th) Baseline 1076 ng/L (0-10)
[2022-12-06 09:56] LABS: C Reactive Protein 365.3 mg/L (0.0-4.9)
[2022-12-06 09:59] LABS: Slide Review Slide Review Perform
[2022-12-06 10:00] LABS: Neutrophils % 95.1 %
--- NOTE | 2022-12-06 10:03 | CTR_ITS ---
PROCEDURE INFORMATION: Exam: CT Chest With Contrast; Diagnostic Exam date and time: 12/06/2022 10:18 AM Clinical indication: Other: Elevated trop with CA and SOB; Shortness of breath TECHNIQUE: Imaging protocol: Diagnostic computed tomography of the chest with contrast. COMPARISON: PT PET [facility] INITIAL [id number] 08/16/2022 10:32 AM FINDINGS: Tubes, catheters and devices: Right upper extremity PICC terminates at the superior cavoatrial junction. Lungs: Platelike left lower lung subsegmental atelectasis versus scarring. No consolidation. 5 mm left upper lobe nodule on axial image 20 of series 4 is stable from July 2022. Lateral left upper subpleural 2.5 x 1.5 cm mass appears to extend through the 2nd intercostal space from outside the thoracic cage. Pleural spaces: Unremarkable. No pneumothorax. No pleural effusion. Heart: Unremarkable. No cardiomegaly. No pericardial effusion. Coronary arteries: Mild coronary artery calcification. Lymph nodes: Progression of incompletely imaged numerous left-sided masses that appear to be centered at the axilla, the largest measuring at least 15.7 cm. This previously measured 10 cm in maximal dimension in July 2022. Vasculature: Normal pulmonary arterial caliber without hypodense filling defect. Mild systemic atherosclerotic calcification without aortic aneurysm. Bones/joints: No acute fracture. No aggressive lytic or blastic lesion. Mild degenerative changes along the spine. Soft tissues: Left chest wall and breast edema, partially visualized. PROCEDURE INFORMATION: Exam: CT Abdomen And Pelvis With Contrast Exam date and time: 12/06/2022 10:18 AM Clinical indication: Other: Elevated trop with CA and SOB; Shortness of breath TECHNIQUE: Imaging protocol: Computed tomography of the abdomen and pelvis with contrast. COMPARISON: PT PET [facility] INITIAL [id number] 08/16/2022 10:32 AM FINDINGS: Liver: The liver is enlarged, measuring 20.5 cm in craniocaudal dimension. Focal hypodensity adjacent to the fissure for the ligamentum teres likely represents 3rd inflow phenomenon or focal fat. Gallbladder and bile ducts: Normal. No calcified stones. No ductal dilation. Pancreas: Normal without ductal dilatation. Spleen: The spleen is enlarged measuring 15.5 cm in maximal dimension. No focal splenic lesions. Adrenal glands: Normal. No mass. Kidneys and ureters: Normal. No hydronephrosis. Stomach and bowel: No dilatation. No mucosal thickening. Appendix: Normal. Intraperitoneal space: No free air, free fluid, or well-organized fluid collection. Vasculature: Mild systemic atherosclerotic calcification without abdominal aortic aneurysm. Lymph nodes: No enlarged lymph nodes. Urinary bladder: Urinary bladder is unremarkable. Reproductive: Fibroid uterus. Bones/joints: No acute fracture. No aggressive lytic or blastic lesion. Degenerative changes along the spine. Soft tissues: Multifocal body wall edema. CT/CT [facility] [id number] IMPRESSION: 1. No acute pulmonary findings. 2. Significant interval increase of numerous left-sided masses centered at the axilla with largest mass partially visualized measuring at least 15.7 cm, previously 10 cm in maximal dimension in July 2022. 3. 2.5 cm lateral left upper subpleural nodule extends through the 2nd intercostal space and musculature from adjacent extrathoracic axilla. 4. Stable 5 mm left upper lobe nodule. 5. Additional chronic and incidental findings as above. IMPRESSION: 1. No acute findings. 2. Hepatosplenomegaly.
--- NOTE | 2022-12-06 10:07 | PC.NURSE ---
Pt at CT at this time via stretcher. Pt unhooked from her antibx and fluids, PICC line intact and flushed, alcohol cap placed on end caps.
[2022-12-06] MEDS: iohexol 350 mg/mL 500 mL Btl (per mL) IV (10:24)
[2022-12-06 11:09] LABS: Partial Thromboplastin Time 30.8 SECONDS (23.9-36.7)
--- NOTE | 2022-12-06 11:10 | ECG_ITS ---
[facility] Test Date: 2022-12-06 Pat Name: Giacomo Plunkett Department: Room: Gender: Female Reamer Hand: : [id number] Requested By: Billy Pabon Order Number: [id number] Guerrero MD: Naila Monsalve M.D. Measurements Intervals [place] Rate: 69 P: 55 MA: 149 QRS: 13 QRSD: 102 T: 33 QT: 375 QTc: 402 Interpretive Statements SINUS RHYTHM Compared to ECG 12/06/2022 09:01:45 Sinus tachycardia no longer present Myocardial infarct finding no longer present Electronically Signed On 12-06-2022 12:04:30 CDT by Naila Monsalve M.D. [id number]
[2022-12-06] MEDS: heparin drip 25,000 UNIT/500 ML PREMIX 29.72 UNIT IV (11:17)
[2022-12-06] MEDS: heparin 5,000 unit/mL INJ 1 mL IV ×2 (11:26→20:06)
[2022-12-06 12:16] LABS: Troponin 5 2HR 746.2 ng/L (0-10)
--- NOTE | 2022-12-06 12:18 | PM.HP ---
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 Ervin who presents to the emergency department with acute on chronic diffuse weakness, fatigue, and malaise. Patient reports symptoms of been worse last several days. She is currently on chemotherapy. She was last seen by medical oncology on 12/01. is bedside and supportive in her care. He also helps provide some history. He states that she is severely weak and unable to stand at home. He states that he has been trying to help her but she has become too weak requiring more assistance than he can physically provide. Patient reports of swelling in her left arm is getting worse. She also reports pain there. She notes that there is been drainage out of her left axillary area which seems to be fairly new. She endorses chills but denies fevers. Denies other alleviating or aggravating factors. Review of Systems Narrative: A complete review of systems was obtained and is negative except as stated in HPI. Medications/Allergies Home Medications Medication Instructions Recorded Confirmed Last Taken Type gabapentin 300 mg capsule 300 mg PO TID 30 days #90 caps 11/18/22 12/06/22 12/04/22 Rx oxycodone 15 mg tablet 15 mg PO QID PRN pain 30 days #120 11/18/22 12/06/22 12/04/22 Rx tabs meloxicam 15 mg tablet 15 mg PO DAILY #30 tabs 11/25/22 12/06/22 12/04/22 Rx dexamethasone 4 mg tablet See Rx Instructions .Route 12/06/22 12/06/22 12/02/22 History .COMPLEX Chemotherapy levothyroxine 75 mcg tablet 75 mcg PO QAM 12/06/22 12/06/22 12/05/22 11:45 History lorazepam 1 mg tablet 0.5 - 1 mg PO Q6H PRN Nausea 12/06/22 12/06/22 Unknown History ondansetron 4 mg disintegrating 4 mg PO Q8H PRN Nausea And Vomiting 12/06/22 12/06/22 Unknown History tablet prochlorperazine maleate 10 mg 10 mg PO Q4H PRN MILD NAUSEA 12/06/22 12/06/22 Unknown History tablet Allergies Allergy/AdvReac Type Severity Reaction Status Date / Time Penicillins Allergy rash Verified 12/06/22 08:46 PFSH Acute PFSH: Medical History (Updated 12/06/22 @ 16:24 by Ata Connolly MD) History of sebaceous cyst Skin cancer Tobacco use disorder Surgical History History of delivery (1992) Family History Father Cancer Hyperlipidemia Hypertension Stroke Other CAD (coronary artery disease) Denies family history of Diabetes Clotting disorder Dementia Psychiatric illness Chronic kidney disease (CKD) Suicide Anesthesia complication Bleeding disorder Lung disease Social History (Updated 12/06/22 @ 16:18 by Ata Connolly MD) Smoking and tobacco status: current every day smoker cigarettes Packs smoked per day: 0.5 Years cigarettes smoked: 35 Alcohol intake: never Substance/Drug Use: never Vitals/I&O/Wt Last Vital Signs Temp 97.0 F L 12/06/22 08:09 Pulse 114 H 12/06/22 08:09 Resp 16 12/06/22 08:09 Pulse Ox 94 12/06/22 08:09 O2 Del Method Room Air 12/06/22 08:09 12/05/22 12/06/22 12/06/22 22:59 06:59 14:59 Intake Total 50 / 50 Balance 50 / 50 Weight last 48 hrs Weight 106.141 kg Physical Exam Narrative: General: Patient is awake. Frail and cachectic appearing. Appears acutely ill. Head: Normocephalic. Atraumatic. EOM intact. Neck: No JVD. Cardiovascular: Tachycardic. No gallops. No heaves. Lungs: Breath sounds diminished bilateral bases. No is rales or rhonchi.. Skin: No jaundice. Abdomen: Normal bowel sounds, abdomen soft and nontender. Extremities: No cyanosis or clubbing. Left upper extremity is markedly swollen compared to right. There is a serous like drainage from her left axillary. Palpable axillary lesion/adenopathy present. Musculoskeletal: Normal muscular development for demographic. Neurological: Moves all 4 extremities. No myoclonus. Data 12/06/22 08:50 12/06/22 08:50 Micro: Microbiology 12/06/22 10:30 Blood Culture - Preliminary Blood SPECIMEN COLLECTED 12/06/22 11:08 Blood Culture - Preliminary Blood SPECIMEN COLLECTED A&P Assessment and plan (1) Left axillary swelling: Associated with left upper extremity swelling Associated with left axillary wound now with drainage Suspected infection Patient is immunosuppressed secondary to malignancy and active chemotherapy Obtain inflammatory markers Blood cultures Start Rocephin Start vancomycin MRSA swab (2) Acute hyperkalemia: Start IV fluids Hold NSAIDs Trend electrolytes (3) Superficial vein thrombosis: Unclear if significantly contributing to her edema in the left upper extremity Started on heparin drip by ED, will continue (4) Myocardial injury: Currently denying chest pain No acute ST changes on EKG Telemetry Trend troponins Started on heparin drip by ED, will continue to monitor troponin trend (5) Squamous cell carcinoma: Squamous cell carcinoma of skin currently on chemotherapy Follows with Dr. Arcadio Walters lymphadenopathy noted on imaging and exam Holding chemotherapy while inpatient Consider heme/onc consult pending clinical course (6) Chronic pain: Continue home oxycodone Continue home gabapentin (7) Hypothyroidism: Continue home Synthroid Plan DVT prophylaxis: Heparin drip CODE STATUS: Full Attestations Medical Necessity Statement*: Patient presents with diffuse weakness, found to have acute myocardial injury, superficial vein thrombosis, and suspected infection in the left axilla requiring IV antibiotics, IV anticoagulation and supportive care with expected hospitalization to cross 2 midnights. Coding Level of Care Code Acute Code for Chg Fwd Diagnoses Left axillary swelling M79.89 Acute hyperkalemia E87.5 Superficial vein thrombosis I82.890 Myocardial injury I5A Squamous cell carcinoma Chronic pain G89.29 Hypothyroidism E03.9
[2022-12-06 12:26] LABS: Add Urine Microscopic? YES; Bacteria Urine 2+ /hpf; Bilirubin Urine Neg (Negative); Blood Urine 3+ (Negative); Glucose Urine UA Norm (Normal); Ketones Urine Negative (Negative); Leukocyte Esterase Urine Negative (Negative); Nitrate Urine Negative (Negative); Protein Urine Trace (Negative); Specific Gravity, Urine 1.005 (1.005-1.030); Sulfosalicylic Acid Urine Positive (Negative); Urine Appearance Clear (CLEAR); Urine Color Straw (Yellow); Urobilinogen Urine Norm (Negative); WBC Urine 0-4 /hpf (0-5); pH Urine 8 (5-7)
[2022-12-06 12:27] LABS: Add Urine Culture? Yes
[2022-12-06] MEDS: fentaNYL 50 mcg/mL INJ 2mL IVP (13:23)
[2022-12-06 14:38] LABS: Procalcitonin 1.44 ng/mL (0-0.5)
[2022-12-06] MEDS: sodium chloride 0.9% 1,000 ML 100 ML IV (15:03)
[2022-12-06] MEDS: meropenem 1,000 MG in sodium chloride 0.9% (plus) 50 ML 100 MG IV ×2 (15:03→22:06)
[2022-12-06] MEDS: vancomycin 1,500 MG/300 ML PIGGYBACK 200 MG IV (16:30)
[2022-12-06 19:34] LABS: Partial Thromboplastin Time 30.6 SECONDS (23.9-36.7)
[2022-12-06] MEDS: oxyCODONE 5 mg IR Tab/Cap 15 MG PO (20:09)
[2022-12-06] MEDS: gabapentin 300 mg Capsule PO (20:09)
[2022-12-06] MEDS: LORazepam 1 mg Tablet PO (20:10)
[2022-12-07] VITALS (30 sets, daily range): BP systolic 90–114; BP diastolic 41–56; PULSE 84–107; RESP 12–26; TEMP 37.1–38; O2SAT 87–96
[2022-12-07 02:34] LABS: Partial Thromboplastin Time 64.4 SECONDS (23.9-36.7)
[2022-12-07] MEDS: heparin drip 25,000 UNIT/500 ML PREMIX 34 UNIT IV (04:12)
[2022-12-07] MEDS: meropenem 1,000 MG in sodium chloride 0.9% (plus) 50 ML 100 MG IV ×3 (05:14→20:32)
[2022-12-07] MEDS: levothyroxine 75 mcg Tablet PO (05:14)
[2022-12-07 09:10] LABS: Basophils # 0.1 10^3/uL (0.0-0.1); Basophils % 1.1 %; Eosinophils # 0.3 10^3/uL (0.0-0.8); Eosinophils % 4.8 %; Hematocrit 29.3 % (37.0-47.0); Hemoglobin 9.3 g/dL (11.5-15.3); Lymphocytes # 0.2 10^3/uL (0.8-4.8); Lymphocytes % 3.1 %; Mean Corpuscular HGB Conc 31.7 g/dL (30.0-36.0); Mean Corpuscular Volume 91.3 fl (81-99); Mean Platelet Volume 10.1 fL (7.4-10.4); Monocytes # 0.2 10^3/uL (0.2-0.9); Monocytes % 3.3 %; Neutrophils # 5.04 10^3/uL (1.8-7.7); Nucleated Red Blood Cells % 0 %; Platelet Count 200 10^3/cmm (130-400); Red Blood Count 3.21 10^6/uL (4.1-5.3); Red Cell Distribution Width 19.6 % (12.1-15.1); White Blood Count 6.4 10^3/uL (4.0-10.0)
[2022-12-07 09:13] LABS: Partial Thromboplastin Time 42.3 SECONDS (23.9-36.7)
[2022-12-07 09:23] LABS: Alanine Aminotransferase 16 U/L (0-33); Albumin Level 2.2 g/dL (3.5-5.2); Alkaline Phosphatase 68 U/L (35-105); Aspartate Amino Transferase 33 U/L (0-32); Blood Urea Nitrogen 31 mg/dL (6-20); Calcium 7.1 mg/dL (8.5-10.5); Carbon Dioxide 22 mmol/L (22-29); Chloride 92 mmol/L (98-107); Globulin 2.9 g/dL (1.3-4.6); Glomerular Filtration Rate 36.1 mL/min (90-130); Glucose 99 mg/dL (65-115); Osmolality Calculated 263 mOsm/kg (285-295); Sodium 123 mmol/L (136-145); Total Bilirubin 0.4 mg/dL (0.15-1.2); Total Protein 5.1 g/dL (6.6-8.7)
[2022-12-07 09:24] LABS: Neutrophils % 87.7 %
[2022-12-07 09:25] LABS: Anion Gap 13.2 (5-19); Potassium 4.2 mmol/L (3.5-5.1)
[2022-12-07 09:30] LABS: Procalcitonin 1.71 ng/mL (0-0.5)
[2022-12-07] MEDS: vancomycin 1,500 MG/300 ML PIGGYBACK 200 MG IV (09:35)
[2022-12-07] MEDS: gabapentin 300 mg Capsule PO ×3 (09:35→19:42)
[2022-12-07 09:37] LABS: C Reactive Protein 382.1 mg/L (0.0-4.9)
--- NOTE | 2022-12-07 09:51 | PC.NURSE ---
pt had bowel movement.2 drops of flores blood noted.dr juarez in room.he ordered to dc heparin drip.
--- NOTE | 2022-12-07 10:05 | PM.CONSULT ---
Providers/Reason For Consult Consulting Physician/Specialty*: Dr. Vinicio El DO/General surgery Reason for Consult*: Metastatic squamous cell carcinoma Attending Physician: Ata Connolly MD Primary Care Provider: Lyle Rider DO History of Present Illness History of Present Illness Giacomo Plunkett is a 57 year old female with metastatic squamous cell carcinoma from her back to her left axilla. She has pain and swelling in that area. She is currently undergoing chemotherapy. CT of the chest reveals a large masses in her left axilla without any fluid collections. She is unable to move her left upper extremity very much. She has sharp pain to palpation in the left axilla. Pain does not radiate. Review of Systems General: Reports: 10 or more systems reviewed and unremarkable except in HPI and below Medications/Allergies Home Medications Medication Instructions Recorded Confirmed Last Taken Type gabapentin 300 mg capsule 300 mg PO TID 30 days #90 caps 11/18/22 12/06/22 12/04/22 Rx oxycodone 15 mg tablet 15 mg PO QID PRN pain 30 days #120 11/18/22 12/06/22 12/04/22 Rx tabs meloxicam 15 mg tablet 15 mg PO DAILY #30 tabs 11/25/22 12/06/22 12/04/22 Rx dexamethasone 4 mg tablet See Rx Instructions .Route 12/06/22 12/06/22 12/02/22 History .COMPLEX Chemotherapy levothyroxine 75 mcg tablet 75 mcg PO QAM 12/06/22 12/06/22 12/05/22 11:45 History lorazepam 1 mg tablet 0.5 - 1 mg PO Q6H PRN Nausea 12/06/22 12/06/22 Unknown History ondansetron 4 mg disintegrating 4 mg PO Q8H PRN Nausea And Vomiting 12/06/22 12/06/22 Unknown History tablet prochlorperazine maleate 10 mg 10 mg PO Q4H PRN MILD NAUSEA 12/06/22 12/06/22 Unknown History tablet Allergies Allergy/AdvReac Type Severity Reaction Status Date / Time Penicillins Allergy rash Verified 12/06/22 08:46 Current Medications Generic Name Dose Route Start Last Admin Trade Name Freq PRN Reason Stop Dose Admin Gabapentin 300 mg 12/06/22 21:00 12/07/22 09:35 Gabapentin 300 Mg Capsule PO 300 mg TID SANCHEZ Administration Meropenem 1,000 mg/ Sodium 50 mls @ 100 mls/hr 12/06/22 14:15 12/07/22 06:15 Chloride IV Infused Q8H SANCHEZ Infusion Protocol Vancomycin/PEG/NADA/Lysine/Water 1,500 mg in 300 mls @ 200 mls/hr 12/06/22 15:30 12/07/22 09:35 Vancocin IV 200 mls/hr Q18H SANCHEZ Administration Levothyroxine Sodium 75 mcg 12/07/22 06:00 12/07/22 05:14 Levothyroxine 75 Mcg Tablet PO 75 mcg QAM SANCHEZ Administration Lorazepam 1 mg 12/06/22 16:22 12/06/22 20:10 Lorazepam 1 Mg Tablet PO 1 mg Q6H PRN Administration Nausea Oxycodone HCl 15 mg 12/06/22 16:22 12/06/22 20:09 Oxycodone 5 Mg Ir Tab/Cap PO 15 mg QID PRN Administration SEVERE pain PFSH Acute PFSH: Medical History History of sebaceous cyst Skin cancer Tobacco use disorder Surgical History History of delivery (1992) Family History Father Cancer Hyperlipidemia Hypertension Stroke Other CAD (coronary artery disease) Denies family history of Diabetes Clotting disorder Dementia Psychiatric illness Chronic kidney disease (CKD) Suicide Anesthesia complication Bleeding disorder Lung disease Social History Smoking and tobacco status: current every day smoker cigarettes Packs smoked per day: 0.5 Years cigarettes smoked: 35 Alcohol intake: never Substance/Drug Use: never Vitals/I&O/Wt Last Vital Signs Temp 98.8 F 12/07/22 07:41 Pulse 98 12/07/22 07:41 Resp 18 12/07/22 07:41 BP 101/52 12/07/22 07:41 Pulse Ox 96 12/07/22 07:41 O2 Del Method Room Air 12/07/22 07:41 12/06/22 12/07/22 12/07/22 22:59 06:59 14:59 Intake Total 766.489 / 816.489 483.511 / 1300.000 620 / 620 Output Total 550 / 550 Balance 766.489 / 816.489 -66.489 / 750.000 620 / 620 Weight last 48 hrs Weight 234 lb Physical Exam Narrative: General : Patient is well developed , no acute distress, oriented x3 Head : Normal cephalic, a-traumatic. Ears : Pinnae and external canal are normal. Hearing is normal. Eyes : PERRLA, Sclera and injection are normal. No conjunctival discharge. Nose : Mucous membranes are without erythema. Throat : buccal mucosa is normal, gums are without significant recession or hypertrophy. Lungs : Equal chest rise bilaterally, no use of accessory muscles, trachea is midline. Cor : Rate and rhythm are normal. Abdomen : Soft, ND, NT, no g/r/m Extremities : There is swelling and induration in the left axilla. No fluctuation. Evidence of necrotic mass without evidence of infection. Back : non-tender to palpation, no CVA tenderness. Data 12/07/22 02:11 12/07/22 08:25 Micro: Microbiology 12/06/22 11:40 Urine Culture - Preliminary Urine,Clean Catch 12/06/22 10:30 Blood Culture - Preliminary Blood SPECIMEN COLLECTED 12/06/22 11:08 Blood Culture - Preliminary Blood SPECIMEN COLLECTED A&P Assessment and plan (1) Metastatic squamous cell carcinoma: (2) Left axillary swelling: Plan No acute surgical intervention Medical management per hospitalist Thank you for this consultation Coding Level of Care Code 47767 Diagnoses Metastatic squamous cell carcinoma Left axillary swelling M79.89
[2022-12-07] MEDS: oxyCODONE 5 mg IR Tab/Cap 15 MG PO (10:55)
--- NOTE | 2022-12-07 13:01 | PM.PN ---
Subjective Subjective: Patient states that she feels terrible, however states she is feeling better than yesterday. Continues to endorse severe swelling of left upper extremity associated with numbness, pain, and decreased overall sensation. She is keeping it elevated and reports that the swelling overall is actually improved since yesterday. She continues to endorse severe weakness and fatigue. Reports continued drainage from the left axillary area. Her is bedside and supportive. Vitals/I&O/Wt Last Vital Signs Temp 99.3 F 12/07/22 12:00 Pulse 88 12/07/22 12:00 Resp 22 H 12/07/22 12:00 BP 113/48 12/07/22 12:00 Pulse Ox 87 L 12/07/22 12:00 O2 Del Method Room Air 12/07/22 12:00 12/06/22 12/07/22 12/07/22 22:59 06:59 14:59 Intake Total 766.489 / 816.489 483.511 / 1300.000 620 / 620 Output Total 550 / 550 Balance 766.489 / 816.489 -66.489 / 750.000 620 / 620 Weight last 48 hrs Weight 106.141 kg Physical Exam Narrative: General: Patient is awake. Frail and cachectic appearing. Appears acutely ill. Lying in bed. Head: Normocephalic. Atraumatic. EOM intact. Neck: No JVD. Cardiovascular: No gallops. No heaves. Lungs: Breath sounds diminished bilateral bases. No is rales or rhonchi. Skin: No jaundice. Abdomen: Normal bowel sounds, abdomen soft and nontender. Extremities: No cyanosis or clubbing. Left upper extremity is markedly swollen similar to yesterday's exam. Left axilla with large palpable mass. There are multiple areas of skin break revealing epithelial and sloughing tissue. There is persistent drainage. Musculoskeletal: Normal muscular development for demographic. Neurological: Moves all 4 extremities. No myoclonus. Data 12/07/22 02:11 12/07/22 08:25 Micro: Microbiology 12/06/22 10:30 Blood Culture - Preliminary Blood NEGATIVE TO DATE 12/06/22 11:08 Blood Culture - Preliminary Blood NEGATIVE TO DATE 12/06/22 11:40 Urine Culture - Preliminary Urine,Clean Catch A&P Assessment and plan (1) Left axillary swelling: Associated with left upper extremity swelling Associated with left axillary wound with suspected infection Patient is immunosuppressed secondary to malignancy and active chemotherapy Inflammatory markers are elevated Blood cultures Continue Rocephin (12/06-P) Continue vancomycin (12/06-P) MRSA swab negative Concern this could be progression of disease, recommend oncology consultation on Thursday We will ensure there is no surgical intervention warranted, will request general surgery evaluate Unclear if radiation-oncology services will be available this week, will need to clarify on Thursday (2) Superficial vein thrombosis: Patient noted to have a few drops of blood after bowel movement, suspect hemorrhoidal Stop heparin drip given finding Repeat CBC in AM Reassess restarting anticoagulation in AM if hemoglobin remains stable (3) Squamous cell carcinoma: Squamous cell carcinoma of skin currently on chemotherapy Follows with Dr. Arcadio Walters lymphadenopathy noted on imaging and exam concerning for advancement of disease Prognosis suspected to be poor Recommend hem/onc consult on Thursday (4) Myocardial injury: No chest pain No acute changes on telemetry Faint blood noted with bowel movement Hemoglobin stable Hold heparin drip for now (5) Chronic pain: Continue home oxycodone Continue home gabapentin (6) Hypothyroidism: Recent thyroid function markedly abnormal Patient and partner report recent change in Synthroid dosing, report outpatient provider is managing Continue home Synthroid (7) Hyponatremia: (8) Acute hyperkalemia: Resolved Plan DVT prophylaxis: Heparin drip now stop CODE STATUS: Full Attestations Medical Necessity Statement*: Patient requires ongoing hospitalization for IV antibiotics, general surgery eval, oncology evaluation, and supportive care. Coding Level of Care Code Acute Code for Chg Fwd Diagnoses Left axillary swelling M79.89 Superficial vein thrombosis I82.890 Squamous cell carcinoma Myocardial injury I5A Chronic pain G89.29 Hypothyroidism E03.9 Hyponatremia E87.1 Acute hyperkalemia E87.5
[2022-12-07 15:06] LABS: Potassium, Radom Urine 38 mmol/L; Urine Random Sodium 29 mmol/L
[2022-12-07 15:07] LABS: Urine Random Chloride 14 mmol/L
[2022-12-07 15:08] LABS: Urea Nitrogen,Urine Random 543 mg/dL
--- NOTE | 2022-12-07 15:38 | P.CONIM_ITS ---
Providers/Reason For Consult Consulting Physician/Specialty*: Medical oncology Reason for Consult*: Locally advanced squamous cell skin cancer Requesting Physician: Ata Connolly MD Attending Physician: Ata Connolly MD Primary Care Provider: Lyle Rider DO History of Present Illness History of Present Illness This is a 57-year-old woman with metastatic squamous cell skin cancer. In June [address] Silva with an enlarging skin lesion on her upper left back.? Her exam at that time showed an exophytic, semipedunculated, lobular, dark pink mass over the left scapular region which measured in the range of 10 to 12 cm.? It contained several areas of open ulceration.? On 12/19/2021 she underwent excision of the lesion with partial intermediate layered closure of the incision, which measured 30 cm.? It was excised with a small rim of normal-appearing skin.? 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 It was invasive into the sub cutaneous tissue at least, and was noted to extend broadly to the tissue edges.? It was estimated to measure at least 4.8 cm. By January 2022 there was evidence of a firm papular area of tissue in the lower aspect of the wound.? It was clinically suspicious for recurrent squamous cell carcinoma, and during further follow-up that lesion continued to enlarge.? By 02/25/2022 it was estimated at 2 cm, and at that point it was excised.? The tissue was not sent to pathology per patient request. She was seen here initially on 03/20/2022.? As she appeared to be at very high risk for further recurrence, she was recommended to undergo adjuvant radiation.? However, her treatment had to be deferred pending healing of the surgical site. On 07/09/2022 she presented with a new knot on her left shoulder area anteriorly.? Staging PET/CT on 08/16/2022 showed a bulky conglomerate of FDG avid masses in the left axilla, presumably lymphadenopathy, with multiple smaller left subpectoralis and infraclavicular nodules, maximum SUV 23.? Also noted were 2 masses in the left posterior lower neck measuring 5.2 and 2.5 cm with SUV 17.8 and 13.9 respectively.? Small right hilar or perihilar nodule in the right lung showed elevated SUV of 6.3.? A 3.6 cm cystic subcutaneous nodule in the left shoulder had normal FDG uptake, consistent with recurrent cyst or postsurgical fluid collection.? Small FDG avid cutaneous and subcutaneous findings in the right groin, in the right gluteal skin, and in the subcutaneous fat in the right lateral abdominal wall and posterior left ear were felt to be probably benign.? With those findings, she was given the option to begin a trial of immunotherapy with cemiplimab.? She began cycle 1 on 09/03/2022.? She experienced some anxiety following the initial infusion she also reported having some nausea.? She otherwise tolerated the treatment well.? She continued with cycle 2 on 09/24/2022, with cycle 3 on 10/15/2022, and with cycle 4 on 11/05/2022. At her follow-up visit on 11/18/2022 she unfortunately is showing obvious disease progression with further enlargement of the axillary mass and with worsening left arm lymphedema. The cemiplimab was put on hold. On 12/02/2022 she began cycle 1 of a trial of palliative chemotherapy with carboplatin/paclitaxel. She tolerated it without acute toxicity. However, over the next several days the swelling in the left arm continued to worsen, and she became generally weak to the point that she was unable to function at home. She was not having fever, chills or other acute symptoms. As she continued to get progressively weaker, she was taken to the emergency room and admitted for inpatient care. Her laboratory studies were significant for a markedly elevated CRP level at 365.3 mg/L. She also had evidence of acute renal impairment with her creatinine elevated at 1.4 mg/dL compared to 1.0 mg/dL on 12/01/2022. She currently has on antibiotic coverage with a combination of meropenem and vancomycin. Her management is otherwise symptomatic/supportive. Today she is feeling a little better, though she still weak, and she requires assistance with any activity. She still has significant swelling in the left arm and left breast, though the arm swelling is down somewhat compared to yesterday. She has not had fever. She does not complain of sore mouth or throat, but she has had a voice change. She has no difficulty swallowing. She does not complain of cough, shortness of breath, or chest pain. She has not had any nausea/vomiting. Bowel and bladder function remain adequate. She is having some discomfort in the left arm, but she currently is not having severe pain, as she had previously reported to us in the office. She does not complain of headache or dizziness, and she has no focal neurologic symptoms. Review of Systems Narrative: Review of systems is as noted above. Medications/Allergies Home Medications Medication Instructions Recorded Confirmed Last Taken Type gabapentin 300 mg capsule 300 mg PO TID 30 days #90 caps 11/18/22 12/06/22 12/04/22 Rx oxycodone 15 mg tablet 15 mg PO QID PRN pain 30 days #120 11/18/22 12/06/22 12/04/22 Rx tabs meloxicam 15 mg tablet 15 mg PO DAILY #30 tabs 11/25/22 12/06/22 12/04/22 Rx dexamethasone 4 mg tablet See Rx Instructions .Route 12/06/22 12/06/22 12/02/22 History .COMPLEX Chemotherapy levothyroxine 75 mcg tablet 75 mcg PO QAM 12/06/22 12/06/22 12/05/22 11:45 H istory lorazepam 1 mg tablet 0.5 - 1 mg PO Q6H PRN Nausea 12/06/22 12/06/22 Unknown History ondansetron 4 mg disintegrating 4 mg PO Q8H PRN Nausea And Vomiting 12/06/22 12/06/22 Unknown History tablet prochlorperazine maleate 10 mg 10 mg PO Q4H PRN MILD NAUSEA 12/06/22 12/06/22 Unknown History tablet Allergies Allergy/AdvReac Type Severity Reaction Status Date / Time Penicillins Allergy rash Verified 12/06/22 08:46 Current Medications Generic Name Dose Route Start Last Admin Trade Name Freq PRN Reason Stop Dose Admin Gabapentin 300 mg 12/06/22 21:00 12/07/22 14:55 Gabapentin 300 Mg Capsule PO 300 mg TID SANCHEZ Administration Meropenem 1,000 mg/ Sodium 50 mls @ 100 mls/hr 12/06/22 14:15 12/07/22 14:55 Chloride IV 100 mls/hr Q8H SANCHEZ Administration Protocol Vancomycin/PEG/NADA/Lysine/Water 1,500 mg in 300 mls @ 200 mls/hr 12/06/22 15:30 12/07/22 11:05 Vancocin IV Infused Q18H SANCHEZ Infusion Levothyroxine Sodium 75 mcg 12/07/22 06:00 12/07/22 05:14 Levothyroxine 75 Mcg Tablet PO 75 mcg QAM SANCHEZ Administration Lorazepam 1 mg 12/06/22 16:22 12/06/22 20:10 Lorazepam 1 Mg Tablet PO 1 mg Q6H PRN Administration Nausea Oxycodone HCl 15 mg 12/06/22 16:22 12/07/22 10:55 Oxycodone 5 Mg Ir Tab/Cap PO 15 mg QID PRN Administration SEVERE pain PFSH Acute PFSH: Medical History History of sebaceous cyst Skin cancer Tobacco use disorder Surgical History History of delivery (1992) Family History Father Cancer Hyperlipidemia Hypertension Stroke Other CAD (coronary artery disease) Denies family history of Diabetes Clotting disorder Dementia Psychiatric illness Chronic kidney disease (CKD) Suicide Anesthesia complication Bleeding disorder Lung disease Social History Smoking and tobacco status: current every day smoker cigarettes Packs smoked per day: 0.5 Years cigarettes smoked: 35 Alcohol intake: never Substance/Drug Use: never Vitals/I&O/Wt Last Vital Signs Temp 99.3 F 12/07/22 12:00 Pulse 87 12/07/22 14:00 Resp 22 H 12/07/22 12:00 BP 113/48 12/07/22 12:00 Pulse Ox 87 L 12/07/22 12:00 O2 Del Method Room Air 12/07/22 12:00 12/07/22 12/07/22 12/07/22 06:59 14:59 22:59 Intake Total 483.511 / 1300.000 920 / 920 Output Total 550 / 550 100 / 100 Balance -66.489 / 750.000 820 / 820 Weight last 48 hrs Weight 106.141 kg Physical Exam Narrative: Constitutional: She appears generally weak, but she is alert and responding appropriately. Eyes: Sclerae nonicteric. Conjunctivae clear. ENMT: No lesions noted in the oral cavity. Hematologic/Lymphatic: There is no cervical or clavicular adenopathy. There is a large mass in the left axilla with discoloration of the overlying skin. It does appear to be close to ulcerating. There is severe lymphedema of the left arm and of the left breast. Respiratory: Lungs sound clear. Cardiovascular: Heart rhythm is regular. There is no murmur, gallop, or rub noted. Abdomen: Soft. Liver and spleen are not enlarged. There is no abdominal mass or ascites noted and there is no inguinal adenopathy. Extremities: There is no lower extremity edema. Neurologic: There are no focal neurologic deficits noted. Data 12/07/22 02:11 12/07/22 08:25 Micro: Microbiology 12/06/22 14:28 MRSA Culture - Final Nose 12/06/22 10:30 Blood Culture - Preliminary Blood NEGATIVE TO DATE 12/06/22 11:08 Blood Culture - Preliminary Blood NEGATIVE TO DATE 12/06/22 11:40 Urine Culture - Preliminary Urine,Clean Catch A&P Assessment and plan (1) Metastatic squamous cell carcinoma: Patient with squamous cell skin cancer involving the upper left back.? She had locally advanced disease at initial presentation. She had undergone initial excision of the skin cancer on 12/19/2021.? In February 2022 she underwent excision for an area of local recurrence on the left back. At that point she was recommended to undergo adjuvant radiation, but treatment had to be deferred due to delayed wound healing. In June 2022 she presented with a left neck mass.? She was confirmed by PET/CT to have FDG avid left posterior cervical and left axillary masses and a smaller, FDG avid right hilar area nodule, consistent with lymph node metastases.? She began a trial of immunotherapy with cemiplimab on 09/03/2022.? As of 11/05/2022 she received her 4th cycle 4 of treatment. At her follow-up visit on 11/18/2022 she unfortunately had evidence of disease progression with enlarging left axillary mass and worsening lymphedema of the left arm. On 12/02/2022 she began cycle 1 of palliative chemotherapy with carboplatin/paclitaxel. She had no acute toxicity with that treatment, but over the next several days the left arm swelling had continued to worsen and she then became progressively weaker, to the point that she was unable to function at home. Today the left arm swelling looks a little better, and she seems to be feeling a little better, though she is still weak. She also is now beginning to show decline in renal function. Her further management is going to be problematic, as there will not be any other treatment to offer her for the squamous cell cancer if she does not show response to the chemotherapy. At this point it is appropriate to continue antibiotic coverage, though with her renal function declining we may want to consider dropping the vancomycin. Her management will otherwise be symptomatic/supportive. I think we will need to be more cautious with the pain medications, as that may have been a contributing factor to the decline in her general condition following the chemotherapy. Overall, her prognosis appears very poor, and going forward if there is any evidence for further disease progression, she will be appropriate for hospice. Coding Level of Care Code Acute Code for Chg Fwd Diagnoses Metastatic squamous cell carcinoma Time Spent (min) 30
[2022-12-07] MEDS: LORazepam 1 mg Tablet PO (19:42)
[2022-12-08] VITALS (33 sets, daily range): BP systolic 90–114; BP diastolic 41–79; PULSE 87–110; RESP 11–24; TEMP 36.6–37.6; O2SAT 83–96
[2022-12-08] MEDS: oxyCODONE 5 mg IR Tab/Cap 15 MG PO ×3 (02:10→20:55)
[2022-12-08] MEDS: levothyroxine 75 mcg Tablet PO (05:09)
[2022-12-08] MEDS: meropenem 1,000 MG in sodium chloride 0.9% (plus) 50 ML 100 MG IV ×3 (05:09→20:58)
[2022-12-08] MEDS: gabapentin 300 mg Capsule PO ×3 (08:44→20:58)
[2022-12-08 09:05] LABS: Basophils % 0.8 %; Eosinophils # 0.2 10^3/uL (0.0-0.8); Eosinophils % 5.7 %; Hematocrit 29.2 % (37.0-47.0); Hemoglobin 9.4 g/dL (11.5-15.3); Lymphocytes # 0.1 10^3/uL (0.8-4.8); Mean Corpuscular HGB Conc 32.2 g/dL (30.0-36.0); Mean Corpuscular Volume 90.1 fl (81-99); Mean Platelet Volume 10.4 fL (7.4-10.4); Monocytes # 0.2 10^3/uL (0.2-0.9); Monocytes % 6.5 %; Neutrophils # 3.05 10^3/uL (1.8-7.7); Neutrophils % 82.9 %; Nucleated Red Blood Cells % 0 %; Platelet Count 162 10^3/cmm (130-400); Red Blood Count 3.24 10^6/uL (4.1-5.3); Red Cell Distribution Width 19.1 % (12.1-15.1); White Blood Count 3.7 10^3/uL (4.0-10.0)
[2022-12-08 10:38] LABS: Albumin Level 2.7 g/dL (3.5-5.2); Blood Urea Nitrogen 24 mg/dL (6-20); Calcium 7.6 mg/dL (8.5-10.5); Carbon Dioxide 24 mmol/L (22-29); Chloride 91 mmol/L (98-107); Glucose 99 mg/dL (65-115); Sodium 126 mmol/L (136-145)
[2022-12-08 10:41] LABS: Anion Gap 15.8 (5-19); Potassium 4.8 mmol/L (3.5-5.1)
[2022-12-08 10:44] LABS: Procalcitonin 1.25 ng/mL (0-0.5)
[2022-12-08 10:53] LABS: C Reactive Protein 372.4 mg/L (0.0-4.9)
--- NOTE | 2022-12-08 12:20 | P.PN_ITS ---
Subjective Subjective: Patient states she feels horrible overall. States she is ready to go home. Reports the swelling is about the same as yesterday. She is still unable to use that left arm. She has not been out of bed yet. had to go to work this morning but plans on being here in the afternoon. Daughter was on speaker phone throughout our interaction. Patient reports continued drainage from left axi lla. She was febrile again overnight with Tmax 100.4. Reports appetite is poor. Denies emesis. Medications: Reviewed: Yes Vitals/I&O/Wt Last Vital Signs Temp 97.8 F 12/08/22 07:48 Pulse 97 12/08/22 07:48 Resp 16 12/08/22 07:48 BP 107/58 12/08/22 07:48 Pulse Ox 96 12/08/22 07:48 O2 Del Method Room Air 12/08/22 07:48 12/07/22 12/08/22 12/08/22 22:59 06:59 14:59 Intake Total 540 / 1460 250 / 1710 360 / 360 Output Total 600 / 700 400 / 1100 Balance -60 / 760 -150 / 610 360 / 360 Physical Exam Narrative: General: Patient is awake. Ill-appearing. Head: Normocephalic. Atraumatic. EOM intact. Neck: No JVD. Cardiovascular: No gallops. No heaves. Lungs: Breath sounds diminished bilateral bases. No is rales or rhonchi. Skin: No jaundice. Abdomen: Normal bowel sounds, abdomen soft and nontender. Extremities: No cyanosis or clubbing. Left upper extremity is markedly swollen similar to yesterday's exam. Left axilla with large palpable mass. There are multiple areas of skin break revealing epithelial and sloughing tissue still present. Overall exam is changed little from admission evaluation. CT scan Musculoskeletal: Normal muscular development for demographic. Neurological: Moves all 4 extremities. No myoclonus. Data 12/08/22 08:37 12/08/22 10:10 Micro: Microbiology 12/06/22 11:40 Urine Culture - Final Urine,Clean Catch 12/06/22 14:28 MRSA Culture - Final Nose 12/06/22 10:30 Blood Culture - Preliminary Blood NEGATIVE TO DATE 12/06/22 11:08 Blood Culture - Preliminary Blood NEGATIVE TO DATE A&P Assessment and plan (1) Left axillary swelling: Associated with left upper extremity swelling, outlet obstruction Associated with left axillary wound with suspected infection Patient is immunosuppressed secondary to malignancy and active chemotherapy Continue meropenem (12/06-P) GS evaluated, no surgical currently intervention warranted Medical oncology evaluated, appreciate recommendations (2) Superficial vein thrombosis: Blood counts stable Plan to try initiation of DOAC at lower dose Monitor for rebleeding (3) Squamous cell carcinoma: Squamous cell carcinoma of skin currently on chemotherapy (just recently started) Dr Ervin evaluated, will need continued outpatient follow up and treatment (4) Myocardial injury: Discontinue telemetry (5) Chronic pain: Continue home oxycodone Continue home gabapentin (6) Hypothyroidism: Recent thyroid function markedly abnormal Patient and partner report recent change in Synthroid dosing, report outpatient provider is managing Continue home Synthroid (7) Hyponatremia: Improving No IVF due to arm swelling, complex situation (8) Physical deconditioning: PT OT evaluation requested Treat underlying infection Plan DVT prophylaxis: Heparin drip now stop CODE STATUS: Full Attestations Medical Necessity Statement*: Patient requires ongoing hospitalization for IV antibiotics, therapy evaluation and supportive care. Coding Level of Care Code Acute Code for Chg Fwd Diagnoses Left axillary swelling M79.89 Superficial vein thrombosis I82.890 Squamous cell carcinoma Myocardial injury I5A Chronic pain G89.29 Hypothyroidism E03.9 Hyponatremia E87.1 Physical deconditioning R53.81
[2022-12-08] MEDS: apixaban 5 mg Tablet PO (13:12)
[2022-12-08] MEDS: nicotine 21 mg Patch 1 PATCH TRANSDERMA (20:55)
[2022-12-08] MEDS: LORazepam 1 mg Tablet PO (20:58)
[2022-12-09] VITALS (11 sets, daily range): BP systolic 100–130; BP diastolic 55–65; PULSE 96–106; RESP 14–25; TEMP 36.6–38.1; O2SAT 85–96
[2022-12-09] MEDS: levothyroxine 75 mcg Tablet PO (05:19)
[2022-12-09] MEDS: meropenem 1,000 MG in sodium chloride 0.9% (plus) 50 ML 100 MG IV ×3 (05:19→21:16)
[2022-12-09 06:10] LABS: Basophils % 0.8 %; Eosinophils # 0.2 10^3/uL (0.0-0.8); Eosinophils % 6.7 %; Hematocrit 26.8 % (37.0-47.0); Hemoglobin 8.7 g/dL (11.5-15.3); Lymphocytes # 0.2 10^3/uL (0.8-4.8); Mean Corpuscular HGB Conc 32.5 g/dL (30.0-36.0); Mean Corpuscular Hemoglobin 29.2 pg (28.0-34.0); Mean Corpuscular Volume 89.9 fl (81-99); Mean Platelet Volume 9.9 fL (7.4-10.4); Monocytes # 0.2 10^3/uL (0.2-0.9); Monocytes % 5.3 %; Neutrophils # 2.88 10^3/uL (1.8-7.7); Neutrophils % 80.5 %; Nucleated Red Blood Cells % 0 %; Platelet Count 152 10^3/cmm (130-400); Red Blood Count 2.98 10^6/uL (4.1-5.3); Red Cell Distribution Width 19.2 % (12.1-15.1); White Blood Count 3.6 10^3/uL (4.0-10.0)
[2022-12-09 07:07] LABS: Albumin Level 2.5 g/dL (3.5-5.2); Blood Urea Nitrogen 23 mg/dL (6-20); Calcium 7.6 mg/dL (8.5-10.5); Carbon Dioxide 27 mmol/L (22-29); Chloride 92 mmol/L (98-107); Glucose 92 mg/dL (65-115); Phosphorus 2.6 mg/dL (2.5-4.5); Sodium 127 mmol/L (136-145)
[2022-12-09 07:13] LABS: Slide Review Slide Review Perform
[2022-12-09] MEDS: nicotine 21 mg Patch 1 PATCH TRANSDERMA (08:20)
[2022-12-09] MEDS: apixaban 5 mg Tablet PO ×2 (08:23→20:56)
[2022-12-09] MEDS: gabapentin 300 mg Capsule PO ×3 (08:23→20:56)
--- NOTE | 2022-12-09 09:49 | PC.CHAP ---
Pastoral Care Encounter/Spiritual Assessment Type of Contact [] Declined edge blacker visit [] Patient/Family/Request visit [] Outpatient visit [] Follow-up visit [] Physician referral [] Code/Alert [x] Routine visit [] Staff referral [] Actively dying [] Patient sleeping [] Family support [] [] Out of room [] Palliative care [] [] Receiving care in room [] Pre-surgical visit [] Trauma [] Long length of stay [] ICU visit [] Other: Relational/Emotional Strength [x] Patient feels connected with others/family/visitors/staff [] Distress [] Loneliness/isolation [] Abandonment Spirituality of Patient [x] Person of Dari [] Attends Amish of their Dari [x] Believes in Prayer [] Reads Bible or Hoahaoism materials [] There are Spiritual issues to be addressed Environmental Conflict Manager Interventions [x] Prayer [x] Active listening [] Non-anxious presence [x] Spiritual/emotional support [] Crisis/trauma care [] Spiritual counseling [] Bereavement support [] Provided bereavement packet [] Provided Bible/devotional materials [] Provided toy/stuffed animal, coloring book to patient or family member [] Provided Communion [] Anointing/[place] [] Salvation [x] Completed spiritual assessment [] Other: Impact on Illness or Injury [] Angry [] Fearful [] Anxious [] Often cries [] Exhaustion [] Unable to work [] Unable to attend jain [] Unable to walk/stand [] Unable to read [] Unable to drive [] Unable to eat/drink [] Unable to sleep [] Unable to be with family [] Patient intubated [] Other: Summary Time spent with patient 10 min
[2022-12-09] MEDS: oxyCODONE 5 mg IR Tab/Cap PO ×2 (17:03→20:56)
--- NOTE | 2022-12-09 18:31 | PM.PN ---
Subjective Subjective: Patient reports her left arm remains swollen still with significant decrease in sensation and function. Denies fevers or chills. Denies chest pain or abdominal pain. Noted to be persistently weak. bedside and supportive. Simulation services for radiation oncology are currently unavailable. I was able to speak to a remote radiation oncologist Dr. Zapata and discussed the patient. He recommended radiation evaluation given outlet syndrome and size of lesions which she is not going to be available for some time here at [facility]. Discussed this with patient and family. They are agreeable to transfer to capable facility. Called and spoke to [facility] which accepted for wait listing under hospitalist Dr. Menon. Patient/family is also agreeable to other facilities if necessary. He previously had a good experience with [facility] though. Medications: Reviewed: Yes Vitals/I&O/Wt Last Vital Signs Temp 97.8 F 12/09/22 08:00 Pulse 99 12/09/22 11:39 Resp 20 H 12/09/22 17:03 BP 103/63 12/09/22 17:59 Pulse Ox 96 12/09/22 17:03 O2 Del Method Room Air 12/09/22 11:39 12/09/22 12/09/22 12/09/22 06:59 14:59 22:59 Intake Total 890 / 890 1050 / 1940 Output Total 1000 / 1000 Balance -1000 / 60 890 / 890 1050 / 1940 Physical Exam Narrative: General: Patient is awake. Ill-appearing. Head: Normocephalic. Atraumatic. EOM intact. Neck: No JVD. Cardiovascular: No gallops. No heaves. Lungs: Breath sounds diminished bilateral bases. No is rales or rhonchi. Skin: No jaundice. Abdomen: Normal bowel sounds, abdomen soft and nontender. Extremities: No cyanosis or clubbing. Left upper extremity remains markedly swollen despite elevation. Decreased sensation. Markedly decreased function. Axillary mass still present. There is some light drainage. Musculoskeletal: Normal muscular development for demographic. Neurological: Moves all 4 extremities. No myoclonus. Data 12/09/22 05:48 12/09/22 06:42 A&P Assessment and plan (1) Left axillary swelling: Associated with significant lymphadenopathy with suspected outlet obstruction There may be a component of infection for which she has been on antibiotics (meropenem, 12/06-P) There may also be a minor component of superficial vein thrombosis for which she is on anticoagulation Despite these interventions, there is not been significant improvement in symptomatology Unfortunately no radiation oncologist available here at [facility] for several weeks Transferring to tertiary care center for radiation evaluation Starting with visit to, added to wait list under hospitalist Dr. Menon Consider other tertiary centers if bed does not become available in a timely manner (2) Superficial vein thrombosis: Restarted apixaban Hemoglobin dropped Continue to monitor (3) Squamous cell carcinoma: Previously on Libtayo Status post first dose of CarboTaxol Unfortunately her locally advanced disease/symptoms have continued to progress, now she has outlet syndrome Despite antibiotics and anticoagulation, persistent symptoms, needs radiation evaluation (4) Myocardial injury: No chest pain Can discontinue telemetry (5) Chronic pain: Continue home oxycodone, dose decrease and frequency increased due to concern for some delirium Continue home gabapentin (6) Hypothyroidism: Thyroid functions are markedly abnormal on recent testing Her dose was increased to 75 mcg after this She will need ongoing testing as outpatient for titration of her hormone replacement (7) Hyponatremia: Likely related to malignancy (8) Physical deconditioning: Encourage out of bed to chair Encourage oral intake Nutritional supplementation Plan DVT prophylaxis: Apixaban CODE STATUS: Full Attestations Medical Necessity Statement*: Patient with left upper extremity outlet syndrome despite antibiotics and anticoagulation requiring ongoing hospitalization for definitive treatment. Coding Level of Care Code Acute Code for Chg Fwd Diagnoses Left axillary swelling M79.89 Superficial vein thrombosis I82.890 Squamous cell carcinoma Myocardial injury I5A Chronic pain G89.29 Hypothyroidism E03.9 Hyponatremia E87.1 Physical deconditioning R53.81
[2022-12-09] MEDS: LORazepam 1 mg Tablet PO (20:58)
--- NOTE | 2022-12-09 22:30 | PC.NURSE ---
This RN agrees with all documentation of Student nurse at this time.
[2022-12-10] VITALS (10 sets, daily range): BP systolic 107–129; BP diastolic 48–73; PULSE 90–102; RESP 13–22; TEMP 36.6–37.9; O2SAT 86–100
[2022-12-10] MEDS: meropenem 1,000 MG in sodium chloride 0.9% (plus) 50 ML 100 MG IV ×3 (05:41→21:32)
[2022-12-10] MEDS: levothyroxine 75 mcg Tablet PO (05:42)
[2022-12-10 06:13] LABS: Basophils % 0.5 %; Eosinophils # 0.2 10^3/uL (0.0-0.8); Hematocrit 25.8 % (36-47); Lymphocytes # 0.3 10^3/uL (0.8-4.8); Lymphocytes % 5.2 %; Mean Corpuscular HGB Conc 32.9 g/dL (30-55); Mean Corpuscular Hemoglobin 29.5 pg (27-33); Mean Corpuscular Volume 89.6 fl (85-98); Mean Platelet Volume 9.8 fL (7.4-10.4); Monocytes # 0.2 10^3/uL (0.2-0.9); Monocytes % 3.8 %; Neutrophils # 4.49 10^3/uL (1.8-7.7); Neutrophils % 81.1 %; Nucleated Red Blood Cells % 0 %; Platelet Count 219 10^3/cmm (157-399); Red Blood Count 2.88 10^6/uL (3.85-5.65); Red Cell Distribution Width 18.6 % (12.1-15.1); White Blood Count 5.54 10^3/uL (3.29-11.43)
[2022-12-10 06:56] LABS: Slide Review Slide Review Perform
[2022-12-10 07:40] LABS: Alanine Aminotransferase 14 U/L (0-33); Albumin Level 2.3 g/dL (3.5-5.2); Alkaline Phosphatase 61 U/L (35-105); Anion Gap 11.9 (5-19); Aspartate Amino Transferase 24 U/L (0-32); Blood Urea Nitrogen 22 mg/dL (6-20); Calcium 7.7 mg/dL (8.5-10.5); Carbon Dioxide 28 mmol/L (22-29); Chloride 91 mmol/L (98-107); Globulin 2.9 g/dL (1.3-4.6); Glucose 99 mg/dL (65-115); Magnesium 2.1 mg/dL (1.7-2.3); Osmolality Calculated 267 mOsm/kg (285-295); Phosphorus 2.6 mg/dL (2.5-4.5); Potassium 3.9 mmol/L (3.5-5.1); Sodium 127 mmol/L (136-145); Total Bilirubin 0.2 mg/dL (0.15-1.2); Total Protein 5.2 g/dL (6.6-8.7)
[2022-12-10 09:16] LABS: Thyroid Stimulating Hormone 18.06 uIU/mL (0.27-4.20); Vitamin B12 250 pg/mL (232-1245)
[2022-12-10 09:37] LABS: Free T4 Free Thyroxine 0.42 ng/dL (0.82-1.77)
[2022-12-10] MEDS: levothyroxine 100 mcg SDV 50 MCG IVP (09:45)
[2022-12-10] MEDS: gabapentin 300 mg Capsule PO ×3 (09:46→21:31)
[2022-12-10] MEDS: apixaban 5 mg Tablet PO ×2 (09:46→21:32)
[2022-12-10] MEDS: oxyCODONE 5 mg IR Tab/Cap PO ×3 (10:04→19:45)
[2022-12-10] MEDS: sodium chloride 1 gm Tablet PO ×2 (10:04→17:27)
--- NOTE | 2022-12-10 10:09 | PC.NURSE ---
Patient and are concerned about which medication is making her loopy . This RN believes it might be the ativan given to her at night.
--- NOTE | 2022-12-10 10:51 | CT_ITS ---
WS: [id number] CT HEAD TECHNIQUE: Noncontrast CT of the head obtained from the skullbase to the vertex. CLINICAL INFORMATION: ams COMPARISON: 12/06/2022 DLP: 1127.[address] scans at [facility] use at least one of these dose optimization techniques: automated e xposure control; mA and/or kV adjustment per patient size (includes targeted exams where dose is matc hed to clinical indication); or iterative reconstruction. FINDINGS: No evidence of intracranial hemorrhage or mass effect. Ventricular system and basal cisterns are drake nt. Mild small vessel changes with no significant parenchymal volume loss. Tiny chronic lacunar infar ct RIGHT caudate. No extra-axial fluid collections. No evidence of mass or mass effect. Incidental se baceous cyst LEFT parietal scalp measuring 11 mm. Paranasal sinuses and mastoid air cells are well aerated. .Normal visualized soft tissues. IMPRESSION: 1. No evidence of intracranial hemorrhage or mass effect. 2. No acute intracranial findings.
--- NOTE | 2022-12-10 15:52 | PC.OT ---
OT TREATMENT ATTEMPTED. NURSE AND FAMILY HAVING A FAMILY DISCUSSION IN THE HALLWAY AND ASKS FOR ME NOT TO SEE PATIENT AT THIS TIME.
[2022-12-10 16:15] LABS: Osmolality Urine 392 mOsm/kg (50-1200)
--- NOTE | 2022-12-10 16:22 | PC.NURSE ---
called to patients room due to patients family having concerns family had escorted patient to oncology for a consult while inpatient status family did not notify nursing staff until patient came back to the room nurse reported that she attempted to body recall instructor (this nurse) also notified the provider and nursing refrigeration repair supervisor This nurse spoke with family and they reported she has been diagnosed with an un-curable cancer and she would like to leave the floor to smoke I explained the policy to the patient and family insistent on leaving the floor to smoke patient states you all are taking all my rights away I'm an adult and I'm dying this nurse calmly explained the risks of her leaving the unit to smoke and that the doors would lock her out after 8 pm patient and family verbalize understanding of policy and risks.
--- NOTE | 2022-12-10 18:01 | P.PN_ITS ---
Subjective Subjective: Hospital course, labs appreciated. Patient seen multiple times in the day today. Had a prolonged family meeting later in the day with and multiple family members at around. Family concerned about patient's fluctuant mentation. Family is more frustrated with patient not able to transfer. Concerns discussed in detail. No active issues overnight. Patient today morning seen early in the morning while working with physical therapy and ambulating in the [place] with a wheelchair. Patient mentation seem to be at baseline though she does seem drowsy and on occasion has tangential thoughts which as per family member is normal for her though her being drowsy and having forced speech occasionally is not. Otherwise patient has remained hemodynamically stable and afebrile. Vitals are stable. Patient states she does not have any power in the left arm though is having pain. Patient has been accepted at [facility] by Dr. Menon and a bed has been awaited. [facility] does not have a bed as of yet. Later in the day I was told patient had left the floor without letting the [facility] staff know to have a family meeting with oncology. It seems patient is also leaving the floor few times a day and going outside the hospital to smoke. Have informed the nursing in charge of the floor that this is not acceptable anymore. Have discussed the same with family members. If needed have offered for nicotine patch. Medications: Reviewed: Yes Vitals/I&O/Wt Last Vital Signs Temp 97.9 F 12/10/22 16:00 Pulse 102 H 12/10/22 16:00 Resp 19 H 12/10/22 16:00 BP 128/73 12/10/22 16:00 Pulse Ox 96 12/10/22 16:00 O2 Del Method Room Air 12/10/22 16:00 12/10/22 12/10/22 12/10/22 06:59 14:59 22:59 Intake Total 50 / 2400 720 / 720 290 / 1010 Balance 50 / 2400 720 / 720 290 / 1010 Physical Exam Narrative: General: Patient is awake. Ill-appearing. Head: Normocephalic. Atraumatic. EOM intact. Neck: No JVD. Cardiovascular: No gallops. No heaves. Lungs: Breath sounds diminished bilateral bases. No is rales or rhonchi. Skin: No jaundice. Abdomen: Normal bowel sounds, abdomen soft and nontender. Extremities: No cyanosis or clubbing. Left upper extremity remains markedly swollen despite elevation. Decreased sensation. Markedly decreased function. Axillary mass still present. There is some light drainage. Musculoskeletal: Normal muscular development for demographic. Neurological: Moves all 4 extremities. No myoclonus. Data 12/10/22 05:40 12/10/22 07:05 A&P Assessment and plan (1) Left axillary swelling: Associated with significant lymphadenopathy with suspected outlet obstruction. Care were discussed in detail with radiation oncology at our hospital who is not available for next few weeks and have advised patient to be transferred to higher center for more emergent radiation therapy treatment. Patient has been accepted at [place]. Awaiting bed. There may be a component of infection for which she has been on antibiotics (meropenem, 12/06-P) plan to continue IV antibiotics for 7 days overall. Also found to have superficial vein thrombosis in the same arm. Home anticoagulation has been started. Continue with Eliquis. (2) Superficial vein thrombosis: Briefly started as above. Improvement with hemoglobin. (3) Squamous cell carcinoma: Post 1 cycle of chemotherapy. Follows with Dr. Ervin as an outpatient. Platelet counts at baseline. Concerns for outlet obstruction at the left thoracic region Awaiting bed at higher [facility] for urgent radiation therapy evaluation. (4) Myocardial injury: No chest pain Can discontinue telemetry (5) Altered mental status: Most likely a combination of acute hyponatremia secondary to SIADH, polypharmacy with pain medications, gabapentin and lorazepam, severely deranged hypothyroidism. Possibility of a stroke cannot be ruled out given significant thrombosis. Treatment as below for hyponatremia and hypothyroidism. Stop lorazepam. Continue home dose of gabapentin. Decreased dose of oxycodone. Discussed with family in detail that we are cutting down on anxiety and pain medications. They are agreeable. Check CT head without contrast to rule out stroke. If needed we will plan for CTA head and neck. (6) Chronic pain: Continue home oxycodone, dose decrease and frequency increased due to concern for some delirium Continue home gabapentin (7) Hypothyroidism: Thyroid functions are markedly abnormal on recent testing. Check free T4 levels. Concerning especially with labile mentation. For now switch to IV levothyroxine at 100 mcg daily. Repeat thyroid panel every 48 hours. We will most likely transition to higher dose of oral levothyroxine. 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 Start on oral salt supplementation with 1 g twice daily. (9) Physical deconditioning: Encourage out of bed to chair Encourage oral intake Nutritional supplementation (10) Thoracic outlet syndrome of left thoracic outlet: Plan DVT prophylaxis: Apixaban CODE STATUS: Full Regular diet Attestations Medical Necessity Statement*: Requires further hospitalization for management of left thoracic outlet obstruction in setting of primary malignancy of lung, hyponatremia, severe hypothyroidism while patient awaits bed at a higher center for urgent radiation therapy evaluation. and High Time for a total of 70 minutes, includes reviewing past or interval history, exa mining/interviewing patient, placing orders, counseling patient/family/other support, updating patient/family/other support, discussing plan of care with staff, communicating with other healthcare providers, documenting encounter and coordinating care Diagnoses Left axillary swelling M79.89 Superficial vein thrombosis I82.890 Squamous cell carcinoma Myocardial injury I5A Altered mental status R41.82 Chronic pain G89.29 Hypothyroidism E03.9 Hyponatremia E87.1 Physical deconditioning R53.81 Thoracic outlet syndrome of left thoracic outlet G54.0
--- NOTE | 2022-12-10 18:52 | PC.NURSE ---
Patient left floor without telling nurse she was going to oncology to have a family meeting. Nurse immediately notified doctor and esthetician and manager medical spa. Manager Financial Systems was unavailable so I spoke with Magdalena Knapp, RN, fish processing supervisor, who advised it was acceptable for her to go to her family meeting. Dr. Maher advised nurse to follow patient to oncology with mobile telemetry, which I did and stayed by her side until she was hooked back up to bedside telemetry.
[2022-12-10] MEDS: nicotine 21 mg Patch 1 PATCH TRANSDERMA (19:56)
[2022-12-11] VITALS (9 sets, daily range): BP systolic 96–118; BP diastolic 53–71; PULSE 88–96; RESP 16–22; TEMP 37.4; O2SAT 92–96
[2022-12-11] MEDS: oxyCODONE 5 mg IR Tab/Cap PO ×5 (03:59→21:50)
[2022-12-11] MEDS: meropenem 1,000 MG in sodium chloride 0.9% (plus) 50 ML 100 MG IV ×3 (06:16→21:51)
[2022-12-11 06:19] LABS: Basophils % 0.5 %; Eosinophils # 0.2 10^3/uL (0.0-0.8); Eosinophils % 2.9 %; Hematocrit 27.5 % (36-47); Lymphocytes # 0.4 10^3/uL (0.8-4.8); Lymphocytes % 5.8 %; Mean Corpuscular HGB Conc 31.6 g/dL (30-55); Mean Corpuscular Hemoglobin 28.7 pg (27-33); Mean Corpuscular Volume 90.8 fl (85-98); Mean Platelet Volume 8.9 fL (7.4-10.4); Monocytes # 0.4 10^3/uL (0.2-0.9); Monocytes % 5.3 %; Neutrophils # 5.17 10^3/uL (1.8-7.7); Neutrophils % 78.2 %; Nucleated Red Blood Cells % 0 %; Platelet Count 216 10^3/cmm (157-399); Red Blood Count 3.03 10^6/uL (3.85-5.65); Red Cell Distribution Width 18.7 % (12.1-15.1)
[2022-12-11 06:42] LABS: Alanine Aminotransferase 16 U/L (0-33); Albumin Level 2.5 g/dL (3.5-5.2); Alkaline Phosphatase 83 U/L (35-105); Anion Gap 11.9 (5-19); Aspartate Amino Transferase 31 U/L (0-32); Blood Urea Nitrogen 22 mg/dL (6-20); Calcium 7.8 mg/dL (8.5-10.5); Carbon Dioxide 28 mmol/L (22-29); Chloride 91 mmol/L (98-107); Glomerular Filtration Rate 46.6 mL/min (90-130); Glucose 97 mg/dL (65-115); Osmolality Calculated 267 mOsm/kg (285-295); Potassium 3.9 mmol/L (3.5-5.1); Sodium 127 mmol/L (136-145); Total Bilirubin 0.2 mg/dL (0.15-1.2); Total Protein 5.5 g/dL (6.6-8.7)
[2022-12-11 06:52] LABS: Estmated Average Glucose 111; Hemoglobin A1C 5.5 % (4.0-6.0)
[2022-12-11 07:02] LABS: Folate Level 7.3 ng/mL (4.8-37.3)
[2022-12-11] MEDS: acetaminophen 325 mg Tablet 1000 MG PO (07:31)
[2022-12-11 07:38] LABS: Slide Review Slide Review Perform
[2022-12-11] MEDS: apixaban 5 mg Tablet PO ×2 (09:40→20:52)
[2022-12-11] MEDS: FUROsemide 40 mg Tablet PO (09:40)
[2022-12-11] MEDS: sodium chloride 1 gm Tablet PO ×2 (09:40→17:39)
[2022-12-11] MEDS: gabapentin 300 mg Capsule PO ×3 (09:41→20:51)
[2022-12-11] MEDS: levothyroxine 100 mcg SDV IVP (10:12)
--- NOTE | 2022-12-11 15:03 | PC.OT ---
OT TX ATTEMPTED SEVERAL TIMES TODAY BUT PT HAVING FAMILY DISCUSSIONS OR CONSULTS WITH PHYSICIANS/NURSING REGARDING HER STATUS AND CARE. PT/FAMILY WAS FREQUENTLY TEARFUL AND THERAPIST DID NOT ATTEMPT TO INTERRUPT AT THESE TIMES. OT TO ATTEMPT AGAIN TOMORROW.
--- NOTE | 2022-12-11 15:54 | PC.NURSE ---
Patient complains of oral sores, physician orders nystatin PO q6h
[2022-12-11] MEDS: nystatin 100,000 unit/mL UDC 5 mL 100000 UNIT PO (17:38)
--- NOTE | 2022-12-11 19:08 | PM.PN ---
Subjective Subjective: Patient seen multiple times in the day today. No acute events overnight. Seems comfortable. With family members at bedside. Has remained hemodynamically stable and afebrile. Blood work appreciated. Had a long family discussion with family members including , daughter and patient at bedside. We discussed the recommendations by the oncologist whom patient met yesterday. We discussed as per the oncologist patient has a pretty extensive mass which is noted amenable to surgical resection and currently is not amenable to radiation or chemotherapy and they suggest patient to go ahead with hospice care. Family verbalized understanding but would like to go ahead for a second opinion before making that decision. We discussed that unfortunately patient is still on the wait list at [facility] and as of now the hospital is on hold for uncertain amount of time. We also discussed alternate options for now or exhausted as hospital seems to not be taking transfers for now. We discussed 1 option could be that patient can call the oncology office at various [facility] including [facility], [facility], [facility], [facility] or [facility] [place] and follow-up with the oncologist over there onsite appointments with patient images desk, recent blood work and health summary and discussed the prognosis or treatment options with the physicians at various hospitals. Family verbalized understanding and would like to go ahead with doing that. We also discussed meanwhile they are doing that it might take them couple of weeks before they are able to see any physicians given the availability though we cannot be sure for now. Discussed possibility of discharge to home versus long-term with home health versus hospice. Family verbalizes understanding and states for now they have very limited resources to take care of the patient by themselves and would want to go ahead with hospice while in the sought a second opinion though they understand the chances of patient survival are pretty grim. Medications: Reviewed: Yes Vitals/I&O/Wt Last Vital Signs Temp 100.2 F H 12/10/22 23:31 Pulse 96 12/11/22 09:48 Resp 18 12/11/22 17:38 BP 108/53 12/11/22 18:02 Pulse Ox 95 12/11/22 17:38 O2 Del Method Room Air 12/11/22 09:48 12/11/22 12/11/22 12/11/22 06:59 14:59 22:59 Intake Total 120 / 1580 220 / 220 Output Total 450 / 450 500 / 500 Balance -330 / 1130 -280 / -280 Physical Exam Narrative: General: Patient is awake. Ill-appearing. Head: Normocephalic. Atraumatic. EOM intact. Neck: No JVD. Cardiovascular: No gallops. No heaves. Lungs: Breath sounds diminished bilateral bases. No is rales or rhonchi. Skin: No jaundice. Abdomen: Normal bowel sounds, abdomen soft and nontender. Extremities: No cyanosis or clubbing. Left upper extremity remains markedly swollen despite elevation. Decreased sensation. Markedly decreased function. Axillary mass still present. There is some light drainage. Musculoskeletal: Normal muscular development for demographic. Neurological: Moves all 4 extremities. No myoclonus. Data 12/11/22 06:02 12/11/22 06:02 Micro: Microbiology 12/06/22 10:30 Blood Culture - Final Blood NO GROWTH AFTER 5 DAYS 12/06/22 11:08 Blood Culture - Final Blood NO GROWTH AFTER 5 DAYS A&P Assessment and plan (1) Left axillary swelling: Associated with significant lymphadenopathy with suspected outlet obstruction. Care were discussed in detail with radiation oncology at our hospital who is not available for next few weeks and have advised patient to be transferred to higher center for more emergent radiation therapy treatment. Patient has been accepted at [place]. Awaiting bed. There may be a component of infection for which she has been on antibiotics (meropenem, 12/06-P) plan to continue IV antibiotics for 7 days overall. Also found to have superficial vein thrombosis in the same arm. Home anticoagulation has been started. Continue with Eliquis. (2) Superficial vein thrombosis: Briefly started as above. Improvement with hemoglobin. (3) Squamous cell carcinoma: Post 1 cycle of chemotherapy. Follows with Dr. Ervin as an outpatient. Platelet counts at baseline. Concerns for outlet obstruction at the left thoracic region Awaiting bed at higher [facility] for urgent radiation therapy evaluation. (4) Myocardial injury: No chest pain Can discontinue telemetry (5) Altered mental status: Most likely a combination of acute hyponatremia secondary to SIADH, polypharmacy with pain medications, gabapentin and lorazepam, severely deranged hypothyroidism. Possibility of a stroke cannot be ruled out given significant thrombosis. Treatment as below for hyponatremia and hypothyroidism. Stop lorazepam. Continue home dose of gabapentin. Decreased dose of oxycodone. Discussed with family in detail that we are cutting down on anxiety and pain medications. They are agreeable. Check CT head without contrast to rule out stroke. If needed we will plan for CTA head and neck. (6) Chronic pain: Continue home oxycodone, dose decrease and frequency increased due to concern for some delirium Continue home gabapentin (7) Hypothyroidism: Thyroid functions are markedly abnormal on recent testing. Check free T4 levels. Concerning especially with labile mentation. For now switch to IV levothyroxine at 100 mcg daily. Repeat thyroid panel every 48 hours. We will most likely transition to higher dose of oral levothyroxine. 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 Start on oral salt supplementation with 1 g twice daily. (9) Physical deconditioning: Encourage out of bed to chair Encourage oral intake Nutritional supplementation (10) Thoracic outlet syndrome of left thoracic outlet: Plan DVT prophylaxis: Apixaban CODE STATUS: Full Regular diet Plan for the day: Continue with anticoagulation. Continue with physical therapy. Continue with IV meropenem to finish 7-day course. Continue with oral salt tablets and monitoring sodium levels daily for now. Oral Lasix 40 mg 1 time with concerns for SIADH. No fluid restriction for now. Continue with IV levothyroxine with plan to follow-up thyroid panel in a.m. tomorrow. If improving and T4 back to normal can switch to oral medications. Will prepare the disc, other blood work and provide to the patient so that they can follow-up with the other oncologists for other various opinions. Case management alerted for hospice care referral. Patient complaining of sore mouth. Concerns for oral thrush. Start patient on nystatin. Attestations Medical Necessity Statement*: Requires further hospitalization for management of thoracic outlet obstruction in setting of lung malignancy, extensive mass while hospice is set up for safe discharge planning. Coding Level of Care Code 92152 High Time for a total of 80 minutes, includes reviewing past or interval history, examining/interviewing patient, placing orders, counseling patient/family/other support, updating patient/family/other support, discussing plan of care with staff, communicating with other healthcare providers, documenting encounter and coordinating care Diagnoses Left axillary swelling M79.89 Superficial vein thrombosis I82.890 Squamous cell carcinoma Myocardial injury I5A Altered mental status R41.82 Chronic pain G89.29 Hypothyroidism E03.9 Hyponatremia E87.1 Physical deconditioning R53.81 Thoracic outlet syndrome of left thoracic outlet G54.0
[2022-12-12] VITALS (9 sets, daily range): BP systolic 103–119; BP diastolic 45–78; PULSE 84–92; RESP 14–19; TEMP 36.9–37.9; O2SAT 85–95
[2022-12-12 04:14] LABS: Hematocrit 26.8 % (36-47); Mean Corpuscular HGB Conc 31.7 g/dL (30-55); Mean Corpuscular Hemoglobin 28.7 pg (27-33); Mean Corpuscular Volume 90.5 fl (85-98); Mean Platelet Volume 9.2 fL (7.4-10.4); Platelet Count 290 10^3/cmm (157-399); Red Blood Count 2.96 10^6/uL (3.85-5.65); Red Cell Distribution Width 18.7 % (12.1-15.1); White Blood Count 6.75 10^3/uL (3.29-11.43)
[2022-12-12 04:42] LABS: Alanine Aminotransferase 21 U/L (0-33); Albumin Level 2.1 g/dL (3.5-5.2); Alkaline Phosphatase 83 U/L (35-105); Anion Gap 13.1 (5-19); Aspartate Amino Transferase 40 U/L (0-32); Blood Urea Nitrogen 21 mg/dL (6-20); Calcium 7.7 mg/dL (8.5-10.5); Carbon Dioxide 29 mmol/L (22-29); Chloride 94 mmol/L (98-107); Globulin 3.4 g/dL (1.3-4.6); Glomerular Filtration Rate 46.6 mL/min (90-130); Glucose 87 mg/dL (65-115); Osmolality Calculated 276 mOsm/kg (285-295); Potassium 4.1 mmol/L (3.5-5.1); Sodium 132 mmol/L (136-145); Total Bilirubin 0.2 mg/dL (0.15-1.2); Total Protein 5.5 g/dL (6.6-8.7)
[2022-12-12 04:43] LABS: Slide Review Slide Review Perform
[2022-12-12 04:44] LABS: Absolute Eosinophils 0.1 10^3/cmm (0.0-0.7); Absolute Segmented Neutrophil 5.5 10/cmm (1.6-7.1); Eosinophils 2 %; Lymphocytes 7 %; Monocytes Absolute 0.3 10^3/cmm (0.1-0.6); Platelet Estimate Normal (Normal); Segmented Neutrophils 82 %; Total Cells Counted 100 (0-100)
[2022-12-12] MEDS: meropenem 1,000 MG in sodium chloride 0.9% (plus) 50 ML 100 MG IV ×3 (05:25→23:08)
[2022-12-12] MEDS: nystatin 100,000 unit/mL UDC 5 mL 100000 UNIT PO ×4 (05:26→23:08)
[2022-12-12] MEDS: gabapentin 300 mg Capsule PO ×3 (09:19→20:23)
[2022-12-12] MEDS: sodium chloride 1 gm Tablet PO ×2 (09:19→17:19)
[2022-12-12] MEDS: apixaban 5 mg Tablet PO ×2 (09:19→20:24)
[2022-12-12] MEDS: levothyroxine 100 mcg SDV IVP (10:03)
[2022-12-12 10:11] LABS: Free T4 Free Thyroxine 0.47 ng/dL (0.82-1.77); Thyroid Stimulating Hormone 31.78 uIU/mL (0.27-4.20)
[2022-12-12] MEDS: FUROsemide 40 mg Tablet PO (11:47)
[2022-12-12] MEDS: oxyCODONE 5 mg IR Tab/Cap PO ×3 (14:35→23:08)
--- NOTE | 2022-12-12 15:41 | P.TS_ITS ---
Transfer Summary Providers Date of Admission: 12/06/22 12:07 Date of Discharge/Transfer: 12/12/22 Attending Provider at Admission: Ata Connolly MD Attending Provider at Transfer: Roldan Maher MD Consults: Surgery: Dr. El Oncology: Dr. Ervin/Dr. Cavazos Primary Care Provider: Lyle Rider DO Transfer Plans: Anticipated date of transfer: 12/12/22 . Receiving Facility: [facility] . Receiving Provider: Dr. Cabrera/radiation oncologist and Dr. Hatfield/hospitalist . Diagnoses at Discharge Discharge Diagnosis (1) Left axillary swelling: Status: Acute (2) Superficial vein thrombosis: Status: Acute (3) Squamous cell carcinoma: Status: Acute (4) Myocardial injury: Status: Acute (5) Altered mental status: Status: Acute (6) Chronic pain: Status: Acute (7) Hypothyroidism: Status: Acute (8) Hyponatremia: Status: Acute (9) Physical deconditioning: Status: Acute (10) Thoracic outlet syndrome of left thoracic outlet: Status: Acute (11) Goals of care, counseling/discussion: Status: Acute Reason for Visit Reason for Visit weak, swollen, cancer diagnosis Brief History: This is a 57-year-old woman with metastatic squamous cell skin cancer. In June [address] Silva with an enlarging skin lesion on her upper left back.? Her exam at that time showed an exophytic, semipedunculated, lobular, dark pink mass over the left scapular region which measured in the range of 10 to 12 cm.? It contained several areas of open ulceration.? On 12/19/2021 she underwent excision of the lesion with partial intermediate layered closure of the incision, which measured 30 cm.? It was excised with a small rim of normal-appearing skin.? 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 It was invasive into the subcutaneous tissue at least, and was noted to extend broadly to the tissue edges.? It was estimated to measure at least 4.8 cm. By January 2022 there was evidence of a firm papular area of tissue in the lower aspect of the wound.? It was clinically suspicious for recurrent squamous cell carcinoma, and during further follow-up that lesion continued to enlarge.? By 04/27/2021 it was estimated at 2 cm, and at that point it was excised.? The tissue was not sent to pathology per patient request. She was seen here initially on 03/20/2022.? As she appeared to be at very high risk for further recurrence, she was recommended to undergo adjuvant radiation.? However, her treatment had to be deferred pending healing of the surgical site. On 07/09/2022 she presented with a new knot on her left shoulder area anteriorly.? Staging PET/CT on 08/16/2022 showed a bulky conglomerate of FDG avid masses in the left axilla, presumably lymphadenopathy, with multiple smaller le ft subpectoralis and infraclavicular nodules, maximum SUV 23.? Also noted were 2 masses in the left posterior lower neck measuring 5.2 and 2.5 cm with SUV 17.8 and 13.9 respectively.? Small right hilar or perihilar nodule in the right lung showed elevated SUV of 6.3.? A 3.6 cm cystic subcutaneous nodule in the left shoulder had normal FDG uptake, consistent with recurrent cyst or postsurgical fluid collection.? Small FDG avid cutaneous and subcutaneous findings in the right groin, in the right gluteal skin, and in the subcutaneous fat in the right lateral abdominal wall and posterior left ear were felt to be probably benign.? With those findings, she was given the option to begin a trial of immunotherapy with cemiplimab.? She began cycle 1 on 09/03/2022.? She experienced some anxiety following the initial infusion she also reported having some nausea.? She otherwise tolerated the treatment well.? She continued with cycle 2 on 09/24/2022, with cycle 3 on 10/15/2022, and with cycle 4 on 11/05/2022. At her follow-up visit on 11/18/2022 she unfortunately is showing obvious disease progression with further enlargement of the axillary mass and with worsening left arm lymphedema.? The cemiplimab was put on hold.? On 12/02/2022 she began cycle 1 of a trial of palliative chemotherapy with carboplatin/paclitaxel.? She tolerated it without acute toxicity.? However, over the next several days the swelling in the left arm continued to worsen, and she became generally weak to the point that she was unable to function at home.? She was not having fever, chills or other acute symptoms.? As she continued to get progressively weaker, she was taken to the emergency room and admitted for inpatient care.? Hospital Course Hospital Course Patient reports symptoms of been worse last several days.? She is currently on chemotherapy.? She was last seen by medical oncology on 12/01.? is bedside and supportive in her care.? He also helps provide some history.? He states that she is severely weak and unable to stand at home.? He states that he has been trying to help her but she has become too weak requiring more as sistance than he can physically provide.? Patient reports of swelling in her left arm is getting worse.? She also reports pain there.? She notes that there is been drainage out of her left axillary area which seems to be fairly new.? She endorses chills but denies fevers.? Denies other alleviating or aggravating factors. Her laboratory studies were significant for a markedly elevated CRP level at 365.3 mg/L.? She also had evidence of acute renal impairment with her creatinine elevated at 1.4 mg/dL compared to 1.0 mg/dL on 12/01/2022. On admission patient had CT chest which was concerning for significant worsening of the mass in the axilla with concerns for thoracic outlet syndrome leading to symptoms of weakness and swelling of her arm. On admission she also had Doppler which is consistent with superficial vein thrombosis. Oncology was consulted. She was started on anticoagulation. On admission she was also found to have hyponatremia and severe hypothyroidism for which she was started on salt tablets and fluid restriction for SIADH with which her sodium levels improved to 132 on the day of transfer, started on IV levothyroxine with which her mentation has improved. Patient was seen by oncology multiple times during the hospitalization and their recommendations were appreciated. Recommendations are as per oncology were that patient is not a good candidate for surgical resection and mass is not amenable to chemo or radiation therapy. Multiple goals of care discussions were done during hospitalization. We discussed the recommendations by the oncologist whom patient met yesterday.? We discussed as per the oncologist patient has a pretty extensive mass which is noted amenable to surgical resection and currently is not amenable to radiation or chemotherapy and they suggest patient to go ahead with hospice care.? Family verbalized understanding but would like to go ahead for a second opinion before making that decision. Patient's hospitalization was prolonged because of difficulty to get bed available at multiple facilities for further management and radiation therapy. Patient's care was discussed in detail with Dr. Cabrera/radiation oncologist and Dr. Hatfield/hospitalist at [facility] and they accepted patient's care. She has been transferred in hemodynamically stable condition for further management. Physical Exam Narrative: General: Patient is awake. Ill-appearing. Head: Normocephalic. Atraumatic. EOM intact. Neck: No JVD. Cardiovascular: No gallops. No heaves. Lungs: Breath sounds diminished bilateral bases. No is rales or rhonchi. Skin: No jaundice. Abdomen: Normal bowel sounds, abdomen soft and nontender. Extremities: No cyanosis or clubbing. Left upper extremity remains markedly swollen despite elevation. Decreased sensation. Markedly decreased function. Axillary mass still present. There is some light drainage. Musculoskeletal: Normal muscular development for demographic. Neurological: Moves all 4 extremities. No myoclonus. TS Data Studies Completed and Pending Pending at discharge Category Date Time Status Comprehensive Metabolic Panel AM LABS Lab 12/13/22 04:00 Ordered Urine Lytes [Urine Random Lytes] Stat Lab 12/10/22 08:36 Ordered Labs from last 24 hours 12/12/22 12/12/22 12/12/22 03:47 03:47 03:47 WBC 6.75 RBC 2.96 L Hgb 8.50 L Hct 26.8 L MCV 90.5 MCH 28.7 MCHC 31.7 RDW 18.7 H Plt Count 290 D MPV 9.2 Lymph % (Auto) Not Reportable [place] % (Auto) Not Reportable Lymph # (Auto) Not Reportable [place] # (Auto) Not Reportable Total Counted 100 Atypical Lymphs % Not Reportable Segmented Neutrophils 82 Abs Segm Neuts (Man) 5.5 Band Neutrophils Not Reportable Lymphocytes (Manual) 7 Monocytes (Manual) 4.0 Absolute Monocytes 0.3 Eosinophils (Manual) 2 Absolute Eosinophils 0.1 Basophils (Manual) 0.0 Absolute Basophils 0.0 Metamyelocytes 1.0 Myelocytes 2.0 Promyelocytes 2.0 Platelet Estimate Normal Sodium 132 L Potassium 4.1 Chloride 94 L Carbon Dioxide 29 Anion Gap 13.1 BUN 21 H Creatinine 1.2 H GFR Calculation 46.6 L Glucose 87 Calculated Osmolality 276 L Calcium 7.7 L Total Bilirubin 0.2 AST 40 H ALT 21 Alkaline Phosphatase 83 Total Protein 5.5 L Albumin 2.1 L Globulin 3.4 TSH 31.78 H Free T4 0.47 L Completed Studies During Hospitalization Category Date Time Status CT head wo con* [id number] Routine Cat Scan 12/10/22 10:[address] head wo con* [id number] Stat Cat Scan 12/06/22 08:24 Completed CTA chest abdomen pelvis [CT ang ches abdpel [id number]/ Cat Scan 12/06/22 10:03 Completed [id number]] Stat XR chest 1V portable [id number] Stat Exams 12/06/22 08:24 Completed US venous duplex upper extremity LT [CV venous duplex Ultrasound 12/06/22 09:04 [place] [id number]] Stat Laboratory Last Values WBC 6.75 10^3/uL (3.29-11.43) 12/12/22 03:47 RBC 2.96 10^6/uL (3.85-5.65) L 12/12/22 03:47 Hgb 8.50 g/dL (11.27-16.99) L 12/12/22 03:47 Hct 26.8 % (36-47) L 12/12/22 03:47 MCV 90.5 fl (85-98) 12/12/22 03:47 MCH 28.7 pg (27-33) 12/12/22 03:47 MCHC 31.7 g/dL (30-55) 12/12/22 03:47 RDW 18.7 % (12.1-15.1) H 12/12/22 03:47 Plt Count 290 10^3/cmm (157-399) D 12/12/22 03:47 MPV 9.2 fL (7.4-10.4) 12/12/22 03:47 Neut % (Auto) 78.2 % 12/11/22 06:02 Lymph % (Auto) Not Reportable 12/12/22 03:47 [place] % (Auto) Not Reportable 12/12/22 03:47 Eos % (Auto) 2.9 % 12/11/22 06:02 Baso % (Auto) 0.5 % 12/11/22 06:02 Neut # (Auto) 5.17 10^3/uL (1.8-7.7) 12/11/22 06:02 Lymph # (Auto) Not Reportable 12/12/22 03:47 [place] # (Auto) Not Reportable 12/12/22 03:47 Eos # (Auto) 0.2 10^3/uL (0.0-0.8) 12/11/22 06:02 Baso # (Auto) 0.0 10^3/uL (0.0-0.1) 12/11/22 06:02 Nucleated RBC % (auto) 0 % 12/11/22 06:02 Total Counted 100 (0-100) 12/12/22 03:47 Atypical Lymphs % Not Reportable 12/12/22 03:47 Segmented Neutrophils 82 % 12/12/22 03:47 Abs Segm Neuts (Man) 5.5 10/cmm (1.6-7.1) 12/12/22 03:47 Band Neutrophils Not Reportable 12/12/22 03:47 Lymphocytes (Manual) 7 % 12/12/22 03:47 Monocytes (Manual) 4.0 % 12/12/22 03:47 Absolute Monocytes 0.3 10^3/cmm (0.1-0.6) 12/12/22 03:47 Eosinophils (Manual) 2 % 12/12/22 03:47 Absolute Eosinophils 0.1 10^3/cmm (0.0-0.7) 12/12/22 03:47 Basophils (Manual) 0.0 % 12/12/22 03:47 Absolute Basophils 0.0 10^3/cmm (0.0-0.2) 12/12/22 03:47 Metamyelocytes 1.0 % 12/12/22 03:47 Myelocytes 2.0 % 12/12/22 03:47 Promyelocytes 2.0 % 12/12/22 03:47 Nucleated RBCs # 0.0 /100WBC 12/11/22 06:02 Platelet Estimate Normal (Normal) 12/12/22 03:47 APTT 42.3 SECONDS (23.9-36.7) H 12/07/22 08:25 Sodium 132 mmol/L (136-145) L 12/12/22 03:47 Potassium 4.1 mmol/L (3.5-5.1) 12/12/22 03:47 Chloride 94 mmol/L (98-107) L 12/12/22 03:47 Carbon Dioxide 29 mmol/L (22-29) 12/12/22 03:47 Anion Gap 13.1 (5-19) 12/12/22 03:47 BUN 21 mg/dL (6-20) H 12/12/22 03:47 Creatinine 1.2 mg/dL (0.5-0.9) H 12/12/22 03:47 GFR Calculation 46.6 mL/min (90-130) L 12/12/22 03:47 Glucose 87 mg/dL (65-115) 12/12/22 03:47 Estimat Average Glucose 111 12/11/22 06:02 Hemoglobin A1c 5.5 % (4.0-6.0) 12/11/22 06:02 Calculated Osmolality 276 mOsm/kg (285-295) L 12/12/22 03:47 Lactic Acid 1.9 mmol/L (0.5-2.2) 12/06/22 08:50 Calcium 7.7 mg/dL (8.5-10.5) L 12/12/22 03:47 Phosphorus 2.6 mg/dL (2.5-4.5) 12/10/22 07:05 Magnesium 2.1 mg/dL (1.7-2.3) 12/10/22 07:05 Total Bilirubin 0.2 mg/dL (0.15-1.2) 12/12/22 03:47 AST 40 U/L (0-32) H 12/12/22 03:47 ALT 21 U/L (0-33) 12/12/22 03:47 Alkaline Phosphatase 83 U/L (35-105) 12/12/22 03:47 Troponin T Baseline 1076 ng/L (0-10) H* 12/06/22 08:50 Troponin T 120 Minute 746.2 ng/L (0-10) H 12/06/22 11:08 Delta Troponin T -329.8 ABS# (0-10) L 12/06/22 11:08 C-Reactive Protein 372.4 mg/L (0.0-4.9) H 12/08/22 10:10 NT-Pro-B Natriuret Pep 801 pg/mL (0-125) H 12/06/22 08:50 Total Protein 5.5 g/dL (6.6-8.7) L 12/12/22 03:47 Albumin 2.1 g/dL (3.5-5.2) L 12/12/22 03:47 Globulin 3.4 g/dL (1.3-4.6) 12/12/22 03:47 Lipase 25 U/L (13-60) 12/06/22 08:50 Vitamin B12 250 pg/mL (232-1245) 12/10/22 07:05 Folate 7.3 ng/mL (4.8-37.3) 12/11/22 06:02 Procalcitonin 1.25 ng/mL (0-0.5) H 12/08/22 10:10 TSH 31.78 uIU/mL (0.27-4.20) H 12/12/22 03:47 Free T4 0.47 ng/dL (0.82-1.77) L 12/12/22 03:47 Urine Color Straw (Yellow) 12/06/22 11:40 Urine Appearance Clear (CLEAR) 12/06/22 11:40 Urine pH 8 (5-7) H 12/06/22 11:40 Ur Specific [place] 1.005 (1.005-1.030) 12/06/22 11:40 Urine Protein Trace (Negative) 12/06/22 11:40 Urine Glucose (UA) Norm (Normal) 12/06/22 11:40 Urine Ketones Negative (Negative) 12/06/22 11:40 Urine Blood 3+ (Negative) H 12/06/22 11:40 Urine Nitrate Negative (Negative) 12/06/22 11:40 Urine Bilirubin Neg (Negative) 12/06/22 11:40 Prot Sulfosalicylic Acd Positive (Negative) 12/06/22 11:40 Urine Urobilinogen Norm mg/dL (Negative) 12/06/22 11:40 Ur Leukocyte Esterase Negative (Negative) 12/06/22 11:40 Urine RBC 5-10 /hpf (0-2) H 12/06/22 11:40 Urine WBC 0-4 /hpf (0-5) H 12/06/22 11:40 Ur Squamous Epith Cells 5-10 /hpf (0-5) H 12/06/22 11:40 Amorphous Sediment Not Reportable 12/06/22 11:40 Urine Bacteria 2+ /hpf (NONE) H 12/06/22 11:40 Urine Osmolality 392 mOsm/kg (50-1200) 12/07/22 14:30 Ur Random Sodium 29 mmol/L 12/07/22 14:30 Ur Random Sodium Cancelled 12/07/22 14:30 Ur Random Potassium 38 mmol/L 12/07/22 14:30 Ur Random Chloride 14 mmol/L 12/07/22 14:30 Ur Random Chloride Cancelled 12/07/22 14:30 Ur Random Urea Nitrogn 543 mg/dL 12/07/22 14:30 Radiology Impressions Chest X-Ray 12/06/22 08:24 IMPRESSION: Mild streaky left lower lung zone opacification may represent atelectasis, although early developing pneumonia could appear similar. Venous Duplex 12/06/22 09:04 IMPRESSION: 1. No evidence of deep vein thrombosis. 2. Superficial thrombus within the basilic vein. Chest/Abdomen/Pelvis CTA 12/06/22 10:03 IMPRESSION: 1. No acute pulmonary findings. 2. Significant interval increase of numerous left-sided masses centered at the axilla with largest mass partially visualized measuring at least 15.7 cm, previously 10 cm in maximal dimension in July 2022. 3. 2.5 cm lateral left upper subpleural nodule extends through the 2nd intercostal space and musculature from adjacent extrathoracic axilla. 4. Stable 5 mm left upper lobe nodule. 5. Additional chronic and incidental findings as above. IMPRESSION: 1. No acute findings. 2. Hepatosplenomegaly. Recent Clincial Data Last Vital Signs Temp 98.9 F 12/12/22 11:30 Pulse 84 12/12/22 11:30 Resp 18 12/12/22 14:35 BP 110/53 12/12/22 11:30 Pulse Ox 95 12/12/22 14:35 O2 Del Method Room Air 12/12/22 11:30 Vital Signs Temp Pulse Resp BP Pulse Ox O2 Del Method 12/12/22 14:35 18 95 12/12/22 11:30 98.9 F 84 15 110/53 86 L Room Air 12/12/22 07:35 98.5 F 90 14 111/61 91 Room Air 12/12/22 05:00 99.3 F 89 18 103/45 91 Room Air 12/12/22 05:49 118/71 Intake & Output/Weight 12/10/22 12/11/22 12/12/22 12/13/22 06:59 06:59 06:59 06:59 Intake Total 2400 / 2400 1580 / 1580 320 / 320 50 / 50 Output Total 450 / 450 1550 / 1550 300 / 300 Balance 2400 / 2400 1130 / 1130 -1230 / -1230 -250 / -250 Vitals Last Vital Signs Temp 98.9 F 12/12/22 11:30 Pulse 84 12/12/22 11:30 Resp 18 12/12/22 14:35 BP 110/53 12/12/22 11:30 Pulse Ox 95 12/12/22 14:35 O2 Del Method Room Air 12/12/22 11:30 TS Medications Medications Acetaminophen (Acetaminophen 325 Mg Tablet) 1,000 mg PO Q6H PRN PRN Reason: Mild/Mod Pain Or Temp >/= 101 Last Admin: 12/11/22 07:31 Dose: 1,000 mg Apixaban (Apixaban 5 Mg Tablet) 5 mg PO BID@0900,2100 [facility] Last Admin: 12/12/22 09:19 Dose: 5 mg Calcium Carbonate (Calcium Carbonate 500 Mg Chew Tablet) 1,000 mg PO Q4H PRN PRN Reason: DYSPEPSI Gabapentin (Gabapentin 300 Mg Capsule) 300 mg PO TID [facility] Last Admin: 12/12/22 14:35 Dose: 300 mg Meropenem 1,000 mg/ Sodium (Chloride) 50 mls @ 100 mls/hr IV Q8H [facility]; Protocol Stop: 12/13/22 14:14 Last Infusion: 12/12/22 15:10 Dose: Infused Levothyroxine Sodium (Levothyroxine 100 Mcg Sdv) 100 mcg IVP DAILY [facility] Last Admin: 12/12/22 10:03 Dose: 100 mcg Nicotine (Nicotine 21 Mg Patch) 1 patch TRANSDERMA DAILY [facility] Last Admin: 12/12/22 09:21 Dose: Not Given Nystatin (Nystatin 100,000 Unit/Ml Udc 5 Ml) 100,000 unit PO Q6H [facility] Last Admin: 12/12/22 12:46 Dose: 100,000 unit Ondansetron HCl (Ondansetron 4 Mg Tablet) 4 mg PO Q8H PRN PRN Reason: NAUSEA Oxycodone HCl (Oxycodone 5 Mg Ir Tab/Cap) 5 mg PO Q4H PRN PRN Reason: SEVERE pain Last Admin: 12/12/22 14:35 Dose: 5 mg Prochlorperazine (Prochlorperazine 10 Mg Tablet) 10 mg PO Q4H PRN PRN Reason: MILD NAUSEA Sodium Chloride (Sodium Chloride 1 Gm Tablet) 1 gm PO BID [facility] Last Admin: 12/12/22 09:19 Dose: 1 gm Discontinued Medications Fentanyl (Fentanyl 50 Mcg/Ml Inj 2ml) 50 mcg IVP ONCE ONE Stop: 12/06/22 13:20 Last Admin: 12/06/22 13:23 Dose: 50 mcg Furosemide (Furosemide 40 Mg Tablet) 40 mg PO ONCE ONE Stop: 12/11/22 08:18 Last Admin: 12/11/22 09:40 Dose: 40 mg Furosemide (Furosemide 40 Mg Tablet) 40 mg PO ONCE ONE Stop: 12/12/22 11:06 Last Admin: 12/12/22 11:47 Dose: 40 mg Heparin Sodium (Porcine) (Heparin 5,000 Unit/Ml Inj 1 Ml) 0 unit IV PRN PRN; Protocol PRN Reason: Heparin weight-base protocol Last Admin: 12/06/22 20:06 Dose: 5,500 unit Sodium Chloride (Sodium Chloride 0.9%) 1,000 mls @ 999 mls/hr IV .Q1H1M ONE Stop: 12/06/22 09:24 Last Admin: 12/06/22 09:15 Dose: 999 mls/hr Ceftriaxone Sodium 1,000 mg/ (Sodium Chloride) 50 mls @ 100 mls/hr IV ONCE ONE; Protocol Stop: 12/06/22 09:34 Last Infusion: 12/06/22 10:21 Dose: Infused Heparin Sodium/Sodium Chloride (Heparin Drip) 25,000 unit in 500 mls @ 0 mls/hr IV .Q0M SANCHEZ; Protocol Last Titration: 12/07/22 09:50 Dose: Infused Sodium Chloride (Sodium Chloride 0.9%) 1,000 mls @ 100 mls/hr IV .Q10H [facility] Stop: 12/07/22 00:14 Last Admin: 12/06/22 15:03 Dose: 100 mls/hr Vancomycin/PEG/NADA/Lysine/Water (Vancocin) 1,500 mg in 300 mls @ 200 mls/hr IV Q18H [facility] Last Infusion: 12/07/22 11:05 Dose: Infused Iohexol (Iohexol 350 Mg/Ml 500 Ml Btl (Per Ml)) 0 ml IV ONCE ONE Stop: 12/06/22 10:25 Last Admin: 12/06/22 10:24 Dose: 100 ml Levothyroxine Sodium (Levothyroxine 75 Mcg Tablet) 75 mcg PO QAM SANCHEZ Last Admin: 12/10/22 05:42 Dose: 75 mcg Levothyroxine Sodium (Levothyroxine 100 Mcg Sdv) 50 mcg IVP ONCE ONE Stop: 12/10/22 08:38 Last Admin: 12/10/22 09:45 Dose: 50 mcg Lorazepam (Lorazepam 1 Mg Tablet) 1 mg PO Q6H PRN PRN Reason: Nausea Last Admin: 12/09/22 20:58 Dose: 1 mg Lorazepam (Lorazepam 1 Mg Tablet) 0.5 mg PO Q6H PRN PRN Reason: Nausea Oxycodone HCl (Oxycodone 5 Mg Ir Tab/Cap) 15 mg PO QID PRN PRN Reason: SEVERE pain Last Admin: 12/08/22 20:55 Dose: 15 mg Allergies Penicillins Allergy (Verified 12/10/22 15:19) rash Home Medications gabapentin 300 mg capsule 300 mg PO TID 30 days #90 caps 11/18/22 [Rx Confirmed 12/10/22] oxycodone 15 mg tablet 15 mg PO QID PRN pain 30 days #120 tabs 11/18/22 [Rx Confirmed 12/10/22] meloxicam 15 mg tablet 15 mg PO DAILY #30 tabs 11/25/22 [Rx Confirmed 12/10/22] dexamethasone 4 mg tablet See Rx Instructions .Route .COMPLEX Chemotherapy 12/06/22 [History Confirmed 12/10/22] levothyroxine 75 mcg tablet 75 mcg PO QAM 12/06/22 [History Confirmed 12/10/22] lorazepam 1 mg tablet 0.5 - 1 mg PO Q6H PRN Nausea 12/06/22 [History Confirmed 12/10/22] ondansetron 4 mg disintegrating tablet 4 mg PO Q8H PRN Nausea And Vomiting 12/06/22 [History Confirmed 12/10/22] prochlorperazine maleate 10 mg tablet 10 mg PO Q4H PRN MILD NAUSEA 12/06/22 [History Confirmed 12/10/22] Discharge Plan Discharge Patient Disposition: Xfer Other Condition: Stable Prescriptions: No Action oxycodone 15 mg tablet 15 mg PO QID PRN (Reason: pain) 30 Days Qty: 120 0RF Rx Instructions: (MEDICATION ON HOLD PER PTS 12/06/22) cover on the fund gabapentin 300 mg capsule 300 mg PO TID 30 Days Qty: 90 0RF Rx Instructions: (MEDICATION ON HOLD PER PTS 12/06/22) cover on the fund meloxicam 15 mg tablet 15 mg PO DAILY Qty: 30 0RF Rx Instructions: (MEDICATION ON HOLD PER PTS 12/06/22) prochlorperazine maleate 10 mg tablet 10 mg PO Q4H PRN (Reason: MILD NAUSEA) levothyroxine 75 mcg Tablet 75 mcg PO QAM lorazepam 1 mg tablet 0.5 - 1 mg PO Q6H PRN (Reason: Nausea) ondansetron 4 mg tablet,disintegrating 4 mg PO Q8H PRN (Reason: Nausea And Vomiting) dexamethasone 4 mg tablet See Rx Instructions .ROUTE .COMPLEX Rx Instructions: Take 20 mg (5 Tabs) 12 hours and 6 hours prior to Taxol Treatment Discharge Orders: Transfer Out of Facility (Order); Ordered 12/12/22 Ordered By: Roldan Maher Referrals: Lyle Rider DO [Primary Care Provider] - Discharge Diet: Usual diet Discharge Activity: Resume usual activity and Increase activity as tolerated Patient Instructions: Opioid Safety Transfer Attestations Time Spent in Transfer Care: greater than 30 min Specific Discharge Activities: educating patient, educating and/or supporting family/caregiver, discussing with pcp/other providers, discussing with housing case manager/social workers/dc planners, documenting/other paperwork and evaluating patient/reviewing data Status at Transfer: Cognitive status at transfer: mildly impaired cognition ; Behavioral status at transfer: cooperative ; Functional status at transfer: wheelchair bound ; Overall status at transfer: patient has a new baseline Quality Metrics Clinical Quality Measures [ No reported AMI, CVA or VTE this stay] Coding Level of Care Code 29093 Total time (in minutes) for Discharge: 70 Diagnoses Left axillary swelling M79.89 Superficial vein thrombosis I82.890 Squamous cell carcinoma Myocardial injury I5A Altered mental status R41.82 Chronic pain G89.29 Hypothyroidism E03.9 Hyponatremia E87.1 Physical deconditioning R53.81 Thoracic outlet syndrome of left thoracic outlet G54.0 Goals of care, counseling/discussion Z71.89
--- NOTE | 2022-12-12 20:58 | PC.NURSE ---
Called [facility] to follow up on possible transfer, patient has been accepted to [facility] but no bed is available at this time.
[2022-12-13 04:00] VITALS: BP 99/53; PULSE 81; RESP 17; TEMP 36.4; O2SAT 97
[2022-12-13 04:28] LABS: Alanine Aminotransferase 17 U/L (0-33); Albumin Level 2.4 g/dL (3.5-5.2); Alkaline Phosphatase 65 U/L (35-105); Anion Gap 12.1 (5-19); Aspartate Amino Transferase 26 U/L (0-32); Blood Urea Nitrogen 19 mg/dL (6-20); Calcium 7.9 mg/dL (8.5-10.5); Carbon Dioxide 33 mmol/L (22-29); Chloride 91 mmol/L (98-107); Globulin 3.5 g/dL (1.3-4.6); Glomerular Filtration Rate 57.6 mL/min (90-130); Glucose 90 mg/dL (65-115); Osmolality Calculated 276 mOsm/kg (285-295); Potassium 4.1 mmol/L (3.5-5.1); Sodium 132 mmol/L (136-145); Total Bilirubin 0.2 mg/dL (0.15-1.2); Total Protein 5.9 g/dL (6.6-8.7)
[2022-12-13] MEDS: meropenem 1,000 MG in sodium chloride 0.9% (plus) 50 ML 100 MG IV (05:33)
[2022-12-13] MEDS: nystatin 100,000 unit/mL UDC 5 mL 100000 UNIT PO (05:34)
[2022-12-13 06:08] VITALS: RESP 19; O2SAT 92
[2022-12-13] MEDS: oxyCODONE 5 mg IR Tab/Cap PO ×3 (06:08→14:22)
[2022-12-13] MEDS: levothyroxine 100 mcg SDV IVP (10:12)
[2022-12-13 10:13] VITALS: RESP 15
[2022-12-13] MEDS: sodium chloride 1 gm Tablet PO (10:13)
[2022-12-13] MEDS: apixaban 5 mg Tablet PO (10:13)
[2022-12-13] MEDS: gabapentin 300 mg Capsule PO (10:14)
[2022-12-13 11:06] VITALS: BP 104/60
[2022-12-13 12:10] VITALS: BP 105/54; PULSE 82; RESP 18; O2SAT 92
--- NOTE | 2022-12-13 13:13 | PM.PN ---
Subjective Subjective: No acute vents overnight. Patient denies any nausea, vomiting, headache. Did have emotional breakdown overnight as she was informed about the of one of the patient's in the neighboring rooms. Patient could not be transferred yesterday as bed was not available. Care discussed in detail with patient and patient's spouse at bedside. Also discussed in detail with transfer center again. Health updates and vitals along with blood work updates given. I am being told that patient has a bed today at [facility]. She is being transferred to on 12/13 in hemodynamically stable condition. Blood work done today shows improvement in creatinine to 1, sodium levels improvement to 132. Patient is more awake and alert. Family at bedside and supportive. Medications: Reviewed: Yes Vitals/I&O/Wt Last Vital Signs Temp 97.5 F L 12/13/22 04:00 Pulse 82 12/13/22 12:10 Resp 18 12/13/22 12:10 BP 105/54 12/13/22 12:10 Pulse Ox 92 12/13/22 12:10 O2 Del Method Nasal Cannula 12/13/22 04:00 12/12/22 12/13/22 12/13/22 22:59 06:59 14:59 Intake Total 650 / 650 1100 / 1750 1000 / 1000 Output Total 3250 / 3550 1150 / 4700 900 / 900 Balance -2600 / -2900 -50 / -2950 100 / 100 Physical Exam Narrative: General: Patient is awake. Ill-appearing. Head: Normocephalic. Atraumatic. EOM intact. Neck: No JVD. Cardiovascular: No gallops. No heaves. Lungs: Breath sounds diminished bilateral bases. No is rales or rhonchi. Skin: No jaundice. Abdomen: Normal bowel sounds, abdomen soft and nontender. Extremities: No cyanosis or clubbing. Left upper extremity remains markedly swollen despite elevation. Decreased sensation. Markedly decreased function. Axillary mass still present. There is some light drainage. Musculoskeletal: Normal muscular development for demographic. Neurological: Moves all 4 extremities. No myoclonus. Data 12/12/22 03:47 12/13/22 03:55 A&P Assessment and plan (1) Left axillary swelling: Associated with significant lymphadenopathy with suspected outlet obstruction. Care were discussed in detail with radiation oncology at our hospital who is not available for next few weeks and have advised patient to be transferred to higher center for more emergent radiation therapy treatment. Patient has been accepted at [place]. Awaiting bed. There may be a component of infection for which she has been on antibiotics (meropenem, 12/06-P) plan to continue IV antibiotics for 7 days overall. Also found to have superficial vein thrombosis in the same arm. Home anticoagulation has been started. Continue with Eliquis. (2) Superficial vein thrombosis: Briefly started as above. Improvement with hemoglobin. (3) Squamous cell carcinoma: Post 1 cycle of chemotherapy. Follows with Dr. Ervin as an outpatient. Platelet counts at baseline. Concerns for outlet obstruction at the left thoracic region Awaiting bed at higher [facility] for urgent radiation therapy evaluation. (4) Myocardial injury: No chest pain Can discontinue telemetry (5) Altered mental status: Most likely a combination of acute hyponatremia secondary to SIADH, polypharmacy with pain medications, gabapentin and lorazepam, severely deranged hypothyroidism. Possibility of a stroke cannot be ruled out given significant thrombosis. Treatment as below for hyponatremia and hypothyroidism. Stop lorazepam. Continue home dose of gabapentin. Decreased dose of oxycodone. Discussed with family in detail that we are cutting down on anxiety and pain medications. They are agreeable. Check CT head without contrast to rule out stroke. If needed we will plan for CTA head and neck. (6) Chronic pain: Continue home oxycodone, dose decrease and frequency increased due to concern for some delirium Continue home gabapentin (7) Hypothyroidism: Thyroid functions are markedly abnormal on recent testing. Check free T4 levels. Concerning especially with labile mentation. For now switch to IV levothyroxine at 100 mcg daily. Repeat thyroid panel every 48 hours. We will most likely transition to higher dose of oral levothyroxine. 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 Start on oral salt supplementation with 1 g twice daily. (9) Physical deconditioning: Encourage out of bed to chair Encourage oral intake Nutritional supplementation (10) Thoracic outlet syndrome of left thoracic outlet: (11) Goals of care, counseling/discussion: Plan DVT prophylaxis: Apixaban CODE STATUS: Full Regular diet Plan for the day: Patient has been accepted at [facility] by Dr. Hatfield and Dr. Cabrera. Patient has a bed. Plan to transfer today. Continuing IV levothyroxine and oral salt tablets for now. Plan on continuing meropenem for 1 more day. Attestations Medical Necessity Statement*: Patient being transferred to a tertiary center for management of thoracic outlet syndrome with radiation therapy. Patient has been accepted. Diagnoses Left axillary swelling M79.89 Superficial vein thrombosis I82.890 Squamous cell carcinoma Myocardial injury I5A Altered mental status R41.82 Chronic pain G89.29 Hypothyroidism E03.9 Hyponatremia E87.1 Physical deconditioning R53.81 Thoracic outlet syndrome of left thoracic outlet G54.0 Goals of care, counseling/discussion Z71.89
[2022-12-13 14:22] VITALS: RESP 17
--- NOTE | 2022-12-13 15:06 | PC.NURSE ---
Patient left via ambulance to transfer to [facility]. VS stable all belongings sent with patient.
== END 2022-12-13 15:07 | disposition short-term general hospital (02) | DRG 607 ==
LOC: ER 12:06 → CSU 12:21
PROVIDERS: Internal Medicine; Admitting Provider Internal Medicine; Emergency Provider Emergency Medicine; PCP Electrodiagnostic Medicine; Visit Provider Student in an Organized Health Care Education/Training Program
DX: C44.529 Squamous cell carcinoma of skin of other part of trunk (principal); E22.2 Syndrome of inappropriate secretion of antidiuretic hormone; I82.612 Acute embolism and thrombosis of superficial veins of left upper extremity; D84.821 Immunodeficiency due to drugs; I5A Non-ischemic myocardial injury (non-traumatic); N17.9 Acute kidney failure, unspecified; G54.0 Brachial plexus disorders; M79.89 Other specified soft tissue disorders; R22.32 Localized swelling, mass and lump, left upper limb; Z79.899 Other long term (current) drug therapy; E03.9 Hypothyroidism, unspecified; G89.29 Other chronic pain; F17.210 Nicotine dependence, cigarettes, uncomplicated; T45.1X5A Adverse effect of antineoplastic and immunosuppressive drugs, initial encounter; E87.5 Hyperkalemia; Z95.828 Presence of other vascular implants and grafts
CPT/HCPCS: 36415; 36592; 70450; 71045; 71275; 74174; 80053; 80069; 81001; 82436; 82607; 82746; 83036; 83605; 83690; 83735; 83880; 83935; 84100; 84133; 84145; 84300; 84439; 84443; 84484; 84540; 85007; 85025; 85730; 86140; 87040; 87086; 87641; 93005; 93971; 96365; 96366; 96367; 96375; 97110; 97116; 97161; 97167; 97530; 97535; 99285; A4565; J0696; J1644; J2185; J3010; J3370; J3490; J7030; Q9967

== ENCOUNTER 2022-12-15 15:15 | Oncology outpatient (recurring) (ONCR) | payer SELFPAY ==
[2022-11-28 10:07] VITALS: BP 128/73; PULSE 119; RESP 18; TEMP 35.9; O2SAT 90
[2022-12-01 08:51] VITALS: BP 106/61; PULSE 57; RESP 18; TEMP 36.6; O2SAT 94; BMI 36.9
[2022-12-01 09:05] LABS: Basophils % 0.6 %; Eosinophils # 0.1 10^3/uL (0.0-0.8); Eosinophils % 2.1 %; Hemoglobin 13.3 g/dL (11.5-15.3); Lymphocytes # 0.5 10^3/uL (0.8-4.8); Lymphocytes % 7.8 %; Mean Corpuscular HGB Conc 32.4 g/dL (30.0-36.0); Mean Corpuscular Hemoglobin 28.2 pg (28.0-34.0); Mean Platelet Volume 8.5 fL (7.4-10.4); Monocytes # 0.6 10^3/uL (0.2-0.9); Monocytes % 8.5 %; Neutrophils # 5.49 10^3/uL (1.8-7.7); Neutrophils % 80.4 %; Nucleated Red Blood Cells % 0 %; Platelet Count 317 10^3/cmm (130-400); Red Blood Count 4.71 10^6/uL (4.1-5.3); Red Cell Distribution Width 19.1 % (12.1-15.1); White Blood Count 6.8 10^3/uL (4.0-10.0)
[2022-12-01] MEDS: sodium chloride 0.9% 500 ML 999 ML IV (11:14)
[2022-12-01 11:15] VITALS: RESP 18
[2022-12-01] MEDS: morphine 4 mg/mL SDV 1 mL IVP (11:15)
[2022-12-01 12:58] LABS: Alanine Aminotransferase < 5 U/L (0-33); Albumin Level 3.2 g/dL (3.5-5.2); Alkaline Phosphatase 80 U/L (35-105); Aspartate Amino Transferase 19 U/L (0-32); Blood Urea Nitrogen 16 mg/dL (6-20); Calcium 8.2 mg/dL (8.5-10.5); Carbon Dioxide 27 mmol/L (22-29); Chloride 93 mmol/L (98-107); Free T4 Free Thyroxine 0.54 ng/dL (0.82-1.77); Globulin 3.2 g/dL (1.3-4.6); Glomerular Filtration Rate 57.6 mL/min (90-130); Glucose 135 mg/dL (65-115); Osmolality Calculated 275 mOsm/kg (285-295); Sodium 131 mmol/L (136-145); Thyroid Stimulating Hormone 40.74 uIU/mL (0.27-4.20); Total Bilirubin 0.3 mg/dL (0.15-1.2); Total Protein 6.4 g/dL (6.6-8.7)
[2022-12-02 08:30] VITALS: BP 124/76; PULSE 95; RESP 16; TEMP 36.3; O2SAT 90
[2022-12-02] MEDS: sodium chloride 0.9% 250 ML 75 ML IV (08:57)
[2022-12-02] MEDS: OLANZapine 5 mg TABLET PO (09:00)
[2022-12-02] MEDS: famotidine 20 mg/2 mL INJ IVP (09:00)
[2022-12-02] MEDS: diphenhydrAMINE 50 mg/mL SDV 1mL 25 MG IVP (09:01)
[2022-12-02] MEDS: palonosetron 0.25 mg/5 mL SDV IVP (09:06)
[2022-12-02] MEDS: fosaprepitant 150 MG in sodium chloride 0.9% 150 ML 300 MG IV (09:27)
[2022-12-02] MEDS: pegfilgrastim 6 mg/0.6 mL Kit (onpro) SUBCUT (14:49)
[2022-12-02 15:05] VITALS: BP 123/60; PULSE 71; RESP 16; TEMP 36.7; O2SAT 99
--- NOTE | 2022-12-05 10:35 | PC.NURSE ---
Follow up call made to pt for post treatment. Spoke with pts spouse. Pts spouse called in the AM and spoke with regarding pts status. States he thought pt was dying. Pt was not responding well, unable to stand, unable to take medication. Pts spouse states Dr. Ervin told him it was not due to chemo but possibly too much pain medication. Spouse states pt is doing a little better at time of phone call. Educated spouse that we have [employer] solutions architect provider if he needs anything. JW
== END 2022-12-18 23:59 | disposition home or self-care (01) ==
PROVIDERS: PCP Electrodiagnostic Medicine; Visit Provider Internal Medicine Medical Oncology
DX: C44.529 Squamous cell carcinoma of skin of other part of trunk (principal)
CPT/HCPCS: 80053; 84439; 84443; 85025; 96365; 96367; 96375; 96377; 96401; 96413; 96415; 96417; J1100; J1200; J1453; J1642; J2270; J2469; J2506; J3490; J7030; J7040; J7050; J9045; J9267

== ENCOUNTER 2023-01-14 15:30 | Oncology outpatient (recurring) (ONCR) | payer SELFPAY ==
--- NOTE | 2023-01-01 16:44 | PC.NURSE ---
PICC line dressing change completed for pt via sterile technique. Slight redness noted around insertion site. No irritation or infection observed. Pt tolerated well. JW
[2023-01-01 16:45] VITALS: BP 97/62; PULSE 96; TEMP 37.1
[2023-01-07 11:10] LABS: Basophils % 0.3 %; Eosinophils # 0.2 10^3/uL (0.0-0.8); Eosinophils % 2.8 %; Hematocrit 29.3 % (36-47); Lymphocytes # 0.4 10^3/uL (0.8-4.8); Lymphocytes % 6.5 %; Mean Corpuscular HGB Conc 33.1 g/dL (30-55); Mean Corpuscular Hemoglobin 31.7 pg (27-33); Mean Corpuscular Volume 95.8 fl (85-98); Monocytes # 0.4 10^3/uL (0.2-0.9); Neutrophils # 4.99 10^3/uL (1.8-7.7); Neutrophils % 83.7 %; Nucleated Red Blood Cells % 0 %; Platelet Count 351 10^3/cmm (157-399); Red Blood Count 3.06 10^6/uL (3.85-5.65); Red Cell Distribution Width 20.8 % (12.1-15.1); White Blood Count 5.97 10^3/uL (3.29-11.43)
--- NOTE | 2023-01-07 17:40 | ONCRAD EPV_ITS ---
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 Radiotherapy to Date: Palliative radiation recently completed at [facility] in [place] 12/30/2022. Current History: Feels poorly in general. She has near complete paresis of the left arm. She has pain over the dorsal hand. She notes weeping and peeling of skin in the axilla since radiation completed. Current Medications: Ascorbic Acid. Allergies: penicillin. Current Complaints / Review of Systems: . Vital Signs: Performed on 01/07/2023 10:51 AM BMI - 35.445 kg/m2 (high), Height - 65 in, Weight - 213 lbs, Temperature - 97.3 f, Pulse - 92 /min, Respiration - 17 /min, O2 Sat - 93 % (low), Pain - 0, Fatigue - 0 and BP - 108/ 70 mm(hg). Physical Exam: General: In wheelchair in modest discomfort. Left axilla has huge residual adenopathy Desquamation in apical fold with spots of over skin breakdown and necrosis likely due to tumor erosion of skin. Flair paralyzed left arm with minimal edema and reduced sensation to light touch. Well healed skin resection sites over upper back. Performance Status: 1-2 Lab: None pending. Pathology: Primary, c44.509 - unspecified malignant neoplasm of skin of other part of trunk, Diagnosed 12/19/2021 (active). Impression: Bulky axillary recurrence of aggressively behaving squamous cell carcinoma of the upper back resected in the past. Adenopathy has caused neurologic impairment of her ipsilateral left arm. It may be causing erosion of the overlying skin in the axilla. She has recently completed palliative radiation to this axilla on 12/30/2022. It is too early to determine if she will respond to this treatment. I do recommend wound care assessment to assist management of her open skin regions seen in the axilla. Discussed with patient, spouse and nursing staff. Signed by: 01/07/2023 5:38:48 PM <<Signature on File>> Time spent with patient: CPT Code: CPT Code:
[2023-01-14 15:55] VITALS: BP 98/52; PULSE 84; RESP 18; TEMP 36.8; O2SAT 98
== END 2023-01-17 23:59 | disposition home or self-care (01) ==
PROVIDERS: Absent Provider Radiology Radiation Oncology; PCP Electrodiagnostic Medicine; Visit Provider Internal Medicine Medical Oncology
DX: Z45.2 Encounter for adjustment and management of vascular access device (principal)
CPT/HCPCS: 36592; 85025; 99213; J1642

== ENCOUNTER 2023-02-03 15:00 | Inpatient (IN) | payer SELFPAY ==
[2023-02-03 15:37] VITALS: BMI 32.4
--- NOTE | 2023-02-03 16:36 | P.HP_ITS ---
Providers/Chief Complaint Admitting Physician: Roldan Maher MD Primary Care Provider: Lyle Rider DO Chief Complaint: Neutropenia History of Present Illness Giacomo Plunkett is a 57 year old female with squamous 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 s/p trial of immunotherapy with cemiplimab , carboplatin/paclitaxel noted worsening disease progression, now most recently on methotrexate with last dose on January 27, 2023. In November 2022 she was admitted and transferred to [place] for palliative radiation of the left axilla for worsening pain in the left arm and axilla and nerve impingement. She continues to have a residual mass in the left axilla. She went to follow-up with Dr. Ervin as outpatient today and reported 3 days of nausea and dry heaving. She was noted to have severe mucositis with inability to eat or take any medications. Her ECOG score is 4. She is referred for direct admission for IV hydration and IV emetics and IV medications as unable to tolerate p.o. intake. In addition leucovorin rescue is recommended per oncology to avoid any further chemotherapy related toxicity. Review of Systems General: Reports: 10 or more systems reviewed and unremarkable except in HPI and below Const: Denies: fever(s), chills or body aches Eyes: Denies: change in vision, blurry vision or photophobia ENMT: Reports: hoarseness; Denies: throat pain, enlarged tonsils, odynophagia or nasal congestion Card: Denies: chest pain, palpitations, irregular heart rhythm, edema, swelling of feet/ankles, lightheadedness, pre-syncope, dyspnea on exertion or orthopnea Resp: Denies: dyspnea, productive cough, non-productive cough, wheezing, stridor, pain on inspiration, change in phlegm color, hemoptysis or chest congestion GI: Denies: abdominal pain, nausea, vomiting, hematemesis, coffee ground emesis, dysphagia, heartburn, diarrhea, constipation, GI cramping, change in stool character, hematochezia or melena : Denies: flank pain, difficulty voiding, dysuria, urinary frequency, urinary urgency, urinary hesitancy or hematuria Musc: Denies: neck pain, back pain, extremity pain, joint swelling, joint warmth or deformity Neuro: Denies: headache(s), numbness in extremities, weakness in extremities, sensory changes, difficulty walking, frequent falls, dizziness, vertigo, behavioral changes, Slurred speech present or seizure-like activity Psych: Denies: anxiety, depression, suicidal ideation or homicidal ideation Endo: Denies: polyuria, polydipsia, tired all the time, cold intolerance or hot flashes Kirk/Lymph: Denies: easy bruising or easy bleeding Medications/Allergies Home Medications Medication Instructions Recorded Confirmed Last Taken Type gabapentin 300 mg capsule 300 mg PO TID 30 days #90 caps 11/18/22 02/04/23 12/04/22 Rx oxycodone 15 mg tablet 15 mg PO QID PRN pain 30 days #120 11/18/22 02/04/23 12/04/22 Rx tabs levothyroxine 75 mcg tablet 75 mcg PO QAM 12/06/22 02/04/23 12/05/22 11:45 History lorazepam 1 mg tablet 0.5 - 1 mg PO Q6H PRN Severe 01/26/23 02/04/23 Unknown Rx Nausea #30 tabs prochlorperazine maleate 10 mg 10 mg PO Q4H PRN Mild Nausea #30 01/26/23 02/04/23 Unknown Rx tablet (Compazine) tabs Allergies Allergy/AdvReac Type Severity Reaction Status Date / Time Penicillins Allergy rash Verified 02/03/23 10:03 PFSH Acute PFSH: Medical History History of sebaceous cyst Myocardial injury Skin cancer Tobacco use disorder Surgical History History of delivery (1992) Family History Father Cancer Hyperlipidemia Hypertension Stroke Other CAD (coronary artery disease) Denies family history of Diabetes Clotting disorder Dementia Psychiatric illness Chronic kidney disease (CKD) Suicide Anesthesia complication Bleeding disorder Lung disease Social History Smoking and tobacco/nicotine status: current every day tobacco/nicotine user cigarettes Packs smoked per day: 0.75 Years cigarettes smoked: 35 Alcohol intake: never Substance/Drug Use: never Vitals/I&O/Wt Last Vital Signs O2 Del Method Room Air 02/03/23 15:37 Weight last 48 hrs Weight 91.172 kg Physical Exam Narrative: General: No acute distress, AO x3, does not wish to talk due to pain HEENT: PERRLA, pupils bilaterally equal and reactive, severe mucositis Chest: Normal vesicular breath sounds, no added sounds, equal good air entry bilaterally CVS: S1-S2 regular, no murmurs, no tachycardia, no gallops, no rubs Abdomen: Soft, nontender, no organomegaly, bowel sounds present Neuro: No focal deficits, no facial deformity, AO x3, power 5/5 in all limbs Ext: does not want me to examine the axilla due to fear of pain Data 02/04/23 05:01 02/04/23 05:01 Other Labs: 02/02/23 : WBC 1.19, ANC 0.88 Hb 7.8 plt 190 Na - 127 K - 5.0 cr 1.0 A&P Assessment and plan (1) Methotrexate toxicity: Start treatment with leucovorin 20 mg IV every 6 hours for the next 72 hours for methotrexate toxicity as recommended by oncology. (2) Mucositis (ulcerative) due to antineoplastic therapy: Grade 4 mucositis likely as a result of recent antineoplastic therapy. Patient is unable to swallow any medications or food right now. Keep patient on a clear liquid diet as tolerated. Start Magic mouthwash every 4 hours IV fluids normal saline with D5 at 75 cc an hour to maintain hydration. Currently patient has not been able to tolerate any p.o. intake and appears to be dehydrated. Symptomatic treatment. (3) Oropharyngeal candidiasis: Start fluconazole 100 mg IV every 24 hours for oropharyngeal and flexural candidiasis. Cannot rule out possibility of esophageal candidiasis given significant dysphagia. Monitor for improvement (4) Neutropenia: Neutropenic as a result of chemotherapy. Neutropenic precautions precautions Monitor pancytopenia daily. We will adelaida with oncology regarding potential gastrium Current ANC at 800. Add levofloxacin 500 mg daily for prophylaxis as expect the ANC to fall further (5) Metastatic squamous cell carcinoma: Metastatic squamous cell carcinoma status post hemotherapy as above. Progressive disease in spite of treatment. Poor prognosis overall. Family not yet ready for hospice discussion. (6) Left axillary swelling: Known to be malignant (7) Ava infection of flexural skin: Fluconazole as above Plan DVT prophylaxis: Conynox 40 mg subcutaneously daily PUD prophylaxis: Protonix 40 mg IV every 24 hours Full code however would not want any prolonged life support measures. Attestations Medical Necessity Statement*: Greater than 2 midnight admission is anticipated for methotrexate toxicity, need for IV leucovorin, IV fluids IV antifungals as patient unable to tolerate any p.o. intake at this point due to grade 4 mucositis. Coding Level of Care Code Acute Code for Chg Fwd High MDM includes number and complexity of problems actively addressed during encounter, amount and/or complexity of data reviewed/ordered and described risk of complication, morbidity or mortality of management as documented Diagnoses Methotrexate toxicity T45.1X1A Mucositis (ulcerative) due to antineoplastic therapy K12.31 Oropharyngeal candidiasis B37.0 Neutropenia D70.9 Metastatic squamous cell carcinoma Left axillary swelling M79.89 Ava infection of flexural skin B37.2
[2023-02-03 16:46] VITALS: BP 108/67; PULSE 84; RESP 15; O2SAT 95
[2023-02-03] MEDS: pantoprazole 40 mg SDV IVP (17:42)
[2023-02-03 17:45] VITALS: RESP 15; O2SAT 95
[2023-02-03] MEDS: morphine 4 mg/mL SDV 1 mL 2 MG IVP (17:45)
[2023-02-03] MEDS: dextrose 5%-sod chloride 0.9% 1,000 ML 75 ML IV (17:46)
[2023-02-03] MEDS: fluconazole premix 100 MG in empty flexible container 1 EACH 50 MG IV (17:46)
[2023-02-03] MEDS: levofloxacin-dextrose 5 % 500 MG/100 ML PREMIX 100 MG IV (18:16)
[2023-02-03] MEDS: enoxaparin 40 mg/0.4 mL Syringe SUBCUT (18:16)
[2023-02-03 18:22] VITALS: PULSE 92; O2SAT 92
[2023-02-03 20:00] VITALS: BP 122/67; PULSE 88; PULSE 90; RESP 16; TEMP 36.6; O2SAT 93; O2SAT 96
[2023-02-03 23:56] VITALS: BP 131/70; PULSE 78; RESP 15; TEMP 36.8; O2SAT 97
[2023-02-04] VITALS (17 sets, daily range): BP systolic 112–129; BP diastolic 54–79; PULSE 62–81; RESP 16–20; TEMP 36.3–37; O2SAT 90–96
[2023-02-04] MEDS: morphine 4 mg/mL SDV 1 mL 2 MG IVP ×3 (02:43→20:30)
--- NOTE | 2023-02-04 02:44 | PC.NURSE ---
The pt c/o pain in her throat. This nurse offered liquid hydrocet. The order is 10 mL of 15 mL. This nurse began giving the medication and the patient began to experience pain to the blistered areas in her mouth. This nurse approached the charge nurse on what to do with the remainder of the medication and she stated to waste the remainder. Medication wasted in pyxis with second nurse verification.
[2023-02-04 06:02] LABS: Lymphocytes % 17.6 %; Mean Corpuscular HGB Conc 32.7 g/dL (30-55); Mean Corpuscular Hemoglobin 33.2 pg (27-33); Mean Corpuscular Volume 101.5 fl (85-98); Mean Platelet Volume 9.3 fL (7.4-10.4); Neutrophils % 76.5 %; Nucleated Red Blood Cells % 0 %; Platelet Count 107 10^3/cmm (157-399); Red Blood Count 2.05 10^6/uL (3.85-5.65); Red Cell Distribution Width 19.4 % (12.1-15.1)
--- NOTE | 2023-02-04 06:04 | PC.NURSE ---
The patient has refused the magic mouth through the shift as it has been ordered. The patient has a dose from the previous shift at bedside that she is using as often as she can tolerate.
[2023-02-04 06:21] LABS: Slide Review Slide Review Perform
[2023-02-04 06:23] LABS: Alanine Aminotransferase < 5 U/L (0-33); Albumin Level 2.7 g/dL (3.5-5.2); Alkaline Phosphatase 52 U/L (35-105); Anion Gap 14.2 (5-19); Aspartate Amino Transferase 6 U/L (0-32); Blood Urea Nitrogen 30 mg/dL (6-20); Calcium 8.6 mg/dL (8.5-10.5); Carbon Dioxide 24 mmol/L (22-29); Chloride 97 mmol/L (98-107); Globulin 3.8 g/dL (1.3-4.6); Glomerular Filtration Rate 57.6 mL/min (90-130); Glucose 142 mg/dL (65-115); Hematocrit 20.8 % (36-47); Magnesium 2.3 mg/dL (1.7-2.3); Neutrophils # 0.13 10^3/uL (1.8-7.7); Osmolality Calculated 281 mOsm/kg (285-295); Potassium 4.2 mmol/L (3.5-5.1); Sodium 131 mmol/L (136-145); Total Bilirubin 0.2 mg/dL (0.15-1.2); Total Protein 6.5 g/dL (6.6-8.7); White Blood Count 0.17 10^3/uL (3.29-11.43)
[2023-02-04] MEDS: dextrose 5%-sod chloride 0.9% 1,000 ML 75 ML IV ×2 (07:51→20:19)
--- NOTE | 2023-02-04 09:54 | PC.CHAP ---
Pastoral Care Encounter/Spiritual Assessment Type of Contact [] Declined flooring grader visit [] Patient/Family/Request visit [] Outpatient visit [] Follow-up visit [] Physician referral [] Code/Alert [x] Routine visit [] Staff referral [] Actively dying [] Patient sleeping [x] Family support [] [] Out of room [] Palliative care [] [] Receiving care in room [] Pre-surgical visit [] Trauma [] Long length of stay [] ICU visit [] Other: Relational/Emotional Strength [x] Patient feels connected with others/family/visitors/staff [] Distress [] Loneliness/isolation [] Abandonment Spirituality of Patient [] Person of Dari [] Attends Orthodox of their Dari [x] Believes in Prayer [] Reads Bible or Adventism materials [] There are Spiritual issues to be addressed Pharmacy Clerk Interventions [x] Prayer [x] Active listening [] Non-anxious presence [] Spiritual/emotional support [] Crisis/trauma care [] Spiritual counseling [] Bereavement support [] Provided bereavement packet [] Provided Bible/devotional materials [] Provided toy/stuffed animal, coloring book to patient or family member [] Provided Communion [] Anointing/[place] [] Salvation [] Completed spiritual assessment [] Other: Impact on Illness or Injury [] Angry [] Fearful [] Anxious [] Often cries [] Exhaustion [] Unable to work [] Unable to attend zoroastrian [] Unable to walk/stand [] Unable to read [] Unable to drive [] Unable to eat/drink [] Unable to sleep [] Unable to be with family [] Patient intubated [] Other: Summary Time spent with patient 15 min
[2023-02-04] MEDS: lanolin oint 7 gm 1 APPLIC TOPICAL (10:59)
[2023-02-04] MEDS: filgrastim-sndz 480 mcg/0.8 mL Syringe SUBCUT (13:19)
--- NOTE | 2023-02-04 15:07 | PM.PN ---
Subjective Subjective: Continues to complain of severe oral pain, refusing any p.o. intake including medications. Hemoglobin dropped to 6.8 today, ordered for blood transfusion. ANC at 130, lymphopenic, platelets currently at 107. Medications: Reviewed: Yes Vitals/I&O/Wt Last Vital Signs Temp 98.6 F 02/04/23 11:54 Pulse 78 02/04/23 12:54 Resp 16 02/04/23 12:54 BP 118/75 02/04/23 12:54 Pulse Ox 90 02/04/23 12:54 O2 Del Method Room Air 02/04/23 04:00 O2 Flow Rate 3 02/03/23 20:00 02/04/23 02/04/23 02/04/23 06:59 14:59 22:59 Intake Total 50 / 250 1350 / 1350 Output Total 200 / 200 Balance -150 / 50 1350 / 1350 Weight last 48 hrs Weight 91.172 kg Physical Exam Narrative: General: No acute distress, AO x3, does not wish to talk due to pain HEENT: PERRLA, pupils bilaterally equal and reactive, severe mucositis, noted thrush Chest: Normal vesicular breath sounds, no added sounds, equal good air entry bilaterally CVS: S1-S2 regular, no murmurs, no tachycardia, no gallops, no rubs Abdomen: Soft, nontender, no organomegaly, bowel sounds present Neuro: No focal deficits, no facial deformity, AO x3, power 5/5 in all limbs Ext: does not want me to examine the axilla due to fear of pain Data 02/04/23 05:01 02/04/23 05:01 A&P Assessment and plan (1) Methotrexate toxicity: Continue treatment with leucovorin 20 mg IV every 6 hours for the next 72 hours for methotrexate toxicity as recommended by oncology. (2) Mucositis (ulcerative) due to antineoplastic therapy: Grade 4 mucositis likely as a result of recent antineoplastic therapy. Patient is unable to swallow any medications or food right now. Keep patient on a clear liquid diet as tolerated, she is barely consuming 25% of her food. Start Magic mouthwash every 4 hours IV fluids normal saline with D5 at 75 cc an hour to maintain hydration. Discussed with her that we may need to start TPN to maintain caloric intake however ideally would prefer to defer until ANC is around 500. Symptomatic treatment. (3) Oropharyngeal candidiasis: Continue fluconazole 100 mg IV every 24 hours for oropharyngeal and flexural candidiasis. Cannot rule out possibility of esophageal candidiasis given significant dysphagia. Monitor for improvement (4) Neutropenia: Neutropenic as a result of chemotherapy. Neutropenic precautions precautions Monitor pancytopenia daily. Start filgrastim 480 mcg daily until ANC is 1000. Add levofloxacin 500 mg daily for prophylaxis (5) Metastatic squamous cell carcinoma: Metastatic squamous cell carcinoma status post hemotherapy as above. Progressive disease in spite of treatment. Poor prognosis overall. Family not yet ready for hospice discussion. (6) Left axillary swelling: Known to be malignant (7) Ava infection of flexural skin: Fluconazole as above (8) Anemia: Due to BM suppression from chemotherapy Tranfsuse 2 PRBC today Plan DVT prophylaxis: Lovenox 40 mg subcutaneously daily PUD prophylaxis: Protonix 40 mg IV every 24 hours Full code however would not want any prolonged life support measures. Attestations Medical Necessity Statement*: Start filgatsrim given worsening neutropenia, Blood transfusion today , continue leukovorin , IVF Coding Level of Care Code Acute Code for Chg Fwd Moderate MDM includes number and complexity of problems actively addressed during encounter, amount and/or complexity of data reviewed/ordered and described risk of complication, morbidity or mortality of management as documented Diagnoses Methotrexate toxicity T45.1X1A Mucositis (ulcerative) due to antineoplastic therapy K12.31 Oropharyngeal candidiasis B37.0 Neutropenia D70.9 Metastatic squamous cell carcinoma Left axillary swelling M79.89 Ava infection of flexural skin B37.2 Anemia D64.9
[2023-02-04] MEDS: enoxaparin 40 mg/0.4 mL Syringe SUBCUT (17:59)
[2023-02-04] MEDS: pantoprazole 40 mg SDV IVP (17:59)
[2023-02-04] MEDS: levofloxacin-dextrose 5 % 500 MG/100 ML PREMIX 100 MG IV (18:03)
[2023-02-04] MEDS: fluconazole premix 100 MG in empty flexible container 1 EACH 50 MG IV (18:09)
[2023-02-05] VITALS (9 sets, daily range): BP systolic 103–128; BP diastolic 64–76; PULSE 69–73; RESP 16–18; TEMP 36.5–37; O2SAT 90–98
[2023-02-05 05:08] LABS: Lymphocytes % 14.8 %; Mean Corpuscular Hemoglobin 33.2 pg (27-33); Mean Corpuscular Volume 97.7 fl (85-98); Mean Platelet Volume 9.2 fL (7.4-10.4); Neutrophils % 81.5 %; Nucleated Red Blood Cells % 0 %; Platelet Count 103 10^3/cmm (157-399); Red Blood Count 2.56 10^6/uL (3.85-5.65); Red Cell Distribution Width 20.2 % (12.1-15.1)
[2023-02-05 05:31] LABS: Neutrophils # 0.22 10^3/uL (1.8-7.7); White Blood Count 0.27 10^3/uL (3.29-11.43)
[2023-02-05 05:32] LABS: Alanine Aminotransferase < 5 U/L (0-33); Albumin Level 2.8 g/dL (3.5-5.2); Alkaline Phosphatase 48 U/L (35-105); Aspartate Amino Transferase 6 U/L (0-32); Blood Urea Nitrogen 27 mg/dL (6-20); Calcium 8.5 mg/dL (8.5-10.5); Carbon Dioxide 27 mmol/L (22-29); Chloride 101 mmol/L (98-107); Globulin 3.5 g/dL (1.3-4.6); Glucose 120 mg/dL (65-115); Osmolality Calculated 286 mOsm/kg (285-295); Sodium 135 mmol/L (136-145); Total Bilirubin 0.5 mg/dL (0.15-1.2); Total Protein 6.3 g/dL (6.6-8.7)
[2023-02-05] MEDS: morphine 4 mg/mL SDV 1 mL 2 MG IVP (08:28)
--- NOTE | 2023-02-05 10:17 | PC.NURSE ---
Patient daughter asked for inerdry and stated she wanted to put vaseline on it so that it didn't stick to the patient skin and peel it off. Educated the patient and the daughter that the purpose of the dressing was to wick the moisture from the wound and keep it dry so that it wouldn't keep the drainage on the wound and that the wound was draining so much that the dressing would not stick to the wound. The daughter stated she was going to do it anyway and that she knew what worked for her mom.
[2023-02-05] MEDS: filgrastim-sndz 480 mcg/0.8 mL Syringe SUBCUT (13:53)
[2023-02-05] MEDS: enoxaparin 40 mg/0.4 mL Syringe SUBCUT (16:15)
[2023-02-05] MEDS: pantoprazole 40 mg SDV IVP (16:15)
[2023-02-05] MEDS: HYDROmorphone 1 mg/mL INJ 1 mL IVP ×2 (16:15→20:03)
--- NOTE | 2023-02-05 17:26 | PM.PN ---
Subjective Subjective: ANC at 200 today. Neupogen continuing. Patient wishes to try some cream of wheat today which she is tolerating. Pain is slightly better in her mouth. Medications: Reviewed: Yes Vitals/I&O/Wt Last Vital Signs Temp 98.0 F 02/05/23 15:40 Pulse 73 02/05/23 15:40 Resp 16 02/05/23 16:15 BP 112/73 02/05/23 15:40 Pulse Ox 98 02/05/23 15:40 O2 Del Method Nasal Cannula 02/05/23 15:40 O2 Flow Rate 2 02/05/23 08:00 02/05/23 02/05/23 02/05/23 06:59 14:59 22:59 Intake Total 50 / 2785 290 / 290 50 / 340 Output Total 100 / 900 500 / 500 Balance -50 / 1885 290 / 290 -450 / -160 Physical Exam Narrative: General: No acute distress, AO x3, able to talk slightly better today. HEENT: PERRLA, pupils bilaterally equal and reactive, severe mucositis, noted thrush Chest: Normal vesicular breath sounds, no added sounds, equal good air entry bilaterally CVS: S1-S2 regular, no murmurs, no tachycardia, no gallops, no rubs Abdomen: Soft, nontender, no organomegaly, bowel sounds present Neuro: No focal deficits, no facial deformity, AO x3, power 5/5 in all limbs Data 02/05/23 04:13 02/05/23 04:13 A&P Assessment and plan (1) Methotrexate toxicity: Continue treatment with leucovorin 20 mg IV every 6 hours for 72 hours for methotrexate toxicity as recommended by oncology. Continue until February 06, 2023. Cannot use oral treatment at this present time as patient is not willing to take any medications due to severe pain in her mouth. (2) Mucositis (ulcerative) due to antineoplastic therapy: Grade 4 mucositis likely as a result of recent antineoplastic therapy. Patient is unable to swallow any medications or food right now. Today she has agreed to try a trial of cream of wheat. Continue Magic mouthwash every 4 hours IV fluids normal saline with D5 at 75 cc an hour to maintain hydration. Discussed with her that we may need to start TPN to maintain caloric intake however ideally would prefer to defer until ANC is around 500. Symptomatic treatment. (3) Oropharyngeal candidiasis: Continue fluconazole 100 mg IV every 24 hours for oropharyngeal and flexural candidiasis. Cannot rule out possibility of esophageal candidiasis given significant dysphagia. Monitor for improvement (4) Neutropenia: Neutropenic as a result of chemotherapy. Neutropenic precautions precautions Monitor pancytopenia daily. Start filgrastim 480 mcg daily until ANC is 1000. Add levofloxacin 500 mg daily for prophylaxis (5) Metastatic squamous cell carcinoma: Metastatic squamous cell carcinoma status post hemotherapy as above. Progressive disease in spite of treatment. Poor prognosis overall. Family not yet ready for hospice discussion. (6) Left axillary swelling: Known to be malignant (7) Ava infection of flexural skin: Fluconazole as above (8) Anemia: Due to BM suppression from chemotherapy Tranfsuse 2 PRBC today Plan DVT prophylaxis: Lovenox 40 mg subcutaneously daily PUD prophylaxis: Protonix 40 mg IV every 24 hours Full code however would not want any prolonged life support measures. Attestations Medical Necessity Statement*: Ongoing need to maintain IV hydration as patient unable to tolerate p.o. intake, need to continue IV leucovorin, IV levofloxacin and IV antifungals. Coding Level of Care Code Acute Code for Chg Fwd Diagnoses Methotrexate toxicity T45.1X1A Mucositis (ulcerative) due to antineoplastic therapy K12.31 Oropharyngeal candidiasis B37.0 Neutropenia D70.9 Metastatic squamous cell carcinoma Left axillary swelling M79.89 Ava infection of flexural skin B37.2 Anemia D64.9
[2023-02-05] MEDS: levofloxacin-dextrose 5 % 500 MG/100 ML PREMIX 100 MG IV (18:11)
[2023-02-05] MEDS: fluconazole premix 100 MG in empty flexible container 1 EACH 50 MG IV (19:47)
[2023-02-05] MEDS: dextrose 5%-sod chloride 0.9% 1,000 ML 75 ML IV (20:03)
[2023-02-06] VITALS (8 sets, daily range): BP systolic 107–132; BP diastolic 57–77; PULSE 64–74; RESP 16–20; TEMP 35.9–36.8; O2SAT 91–96
[2023-02-06] MEDS: HYDROmorphone 1 mg/mL INJ 1 mL IVP ×3 (00:07→08:35)
[2023-02-06 10:17] LABS: Eosinophils % 11.8 %; Hematocrit 26.4 % (36-47); Lymphocytes # 0.1 10^3/uL (0.8-4.8); Lymphocytes % 35.3 %; Mean Corpuscular HGB Conc 31.8 g/dL (30-55); Mean Corpuscular Hemoglobin 33.5 pg (27-33); Mean Corpuscular Volume 105.2 fl (85-98); Mean Platelet Volume 9.7 fL (7.4-10.4); Monocytes % 5.9 %; Nucleated Red Blood Cells % 0 %; Platelet Count 53 10^3/cmm (157-399); Red Blood Count 2.51 10^6/uL (3.85-5.65); Red Cell Distribution Width 19.8 % (12.1-15.1)
[2023-02-06 10:29] LABS: Alanine Aminotransferase < 5 U/L (0-33); Albumin Level 2.5 g/dL (3.5-5.2); Alkaline Phosphatase 44 U/L (35-105); Blood Urea Nitrogen 22 mg/dL (6-20); Calcium 7.9 mg/dL (8.5-10.5); Carbon Dioxide 22 mmol/L (22-29); Chloride 103 mmol/L (98-107); Globulin 3.4 g/dL (1.3-4.6); Glomerular Filtration Rate 86.9 mL/min (90-130); Glucose 107 mg/dL (65-115); Osmolality Calculated 280 mOsm/kg (285-295); Sodium 133 mmol/L (136-145); Total Bilirubin 0.3 mg/dL (0.15-1.2); Total Protein 5.9 g/dL (6.6-8.7)
[2023-02-06 10:31] LABS: Aspartate Amino Transferase 5 U/L (0-32)
[2023-02-06 10:36] LABS: Neutrophils # 0.08 10^3/uL (1.8-7.7); White Blood Count 0.17 10^3/uL (3.29-11.43)
[2023-02-06] MEDS: fluconazole oral liq 40 mg/mL Syringe 100 MG PO (12:08)
--- NOTE | 2023-02-06 12:18 | PC.NURSE ---
Scheduled for earliest available appointment with dr sylvester. He is out on vacation.
[2023-02-06] MEDS: filgrastim-sndz 480 mcg/0.8 mL Syringe SUBCUT (14:29)
--- NOTE | 2023-02-06 14:49 | P.DS_ITS ---
Discharge Providers Date of Admission: 02/03/23 15:00 Date of Discharge: February 06, 2023 Attending Provider at Admission: Roldan Maher MD Attending Provider at Discharge: Susy Soto MD Primary Care Provider: Lyle Rider DO Diagnoses at Discharge Discharge Diagnosis (1) Methotrexate toxicity: Status: Acute (2) Mucositis (ulcerative) due to antineoplastic therapy: Status: Acute (3) Oropharyngeal candidiasis: Status: Acute (4) Neutropenia: Status: Acute (5) Metastatic squamous cell carcinoma: Status: Acute (6) Left axillary swelling: Status: Acute (7) Ava infection of flexural skin: Status: Acute (8) Anemia: Status: Acute Reason for Visit Reason for Visit: Neutropenia Hospital Course Hospital Course Giacomo Plunkett is a 57 year old female with squamous 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 s/p trial of immunotherapy with cemiplimab , carboplatin/paclitaxel? noted worsening disease progression, now most recently on methotrexate with last dose on January 27, 2023.? She presented with 3 days of nausea and dry heaving.? She was noted to have severe mucositis with inability to eat or take any medications.? Her ECOG score is 4.? She is referred for direct admission for IV hydration and IV emetics and IV medications as unable to tolerate p.o. intake.? In addition leucovorin rescue is recommended per oncology. Admission course as below: (1) Methotrexate toxicity: Received treatment with leucovorin 20 mg IV every 6 hours for 72 hours for methotrexate toxicity as recommended by oncology. Could not use oral treatment at this present time as patient is not willing to t ramo any medications due to severe pain in her mouth. (2) Mucositis (ulcerative) due to antineoplastic therapy: Grade 4 mucositis likely as a result of recent antineoplastic therapy. Patient was unable to swallow any medications or food upon admission. She was barely able to speak. received supportive management with Magic mouthwash every 4 hours and iv hydration with fluids normal saline with D5 at 75 cc an hour to maintain hydration.? At the time of discharge today she is willing to eat cream of wheat which is tolerating currently, asked to try different pureed consistency of foods, even OTC baby food while awaiting imrpovement in mucositis. She is not willing to try any protein shakes for now. She is tolerating oral medications today. Able to open her mouth to have a conversation. Overall improving and now able to tolerate medications, therefore being discharged home. All medications in syrup form as much as possible. (3) Oropharyngeal candidiasis: received treatment with fluconazole 100 mg IV every 24 hours for oropharyngeal and flexural candidiasis.? Cannot rule out possibility of esophageal candidiasis given significant dysphagia. Continue treatment with fluconazole until thrush resolves (4) Neutropenia: Neutropenic as a result of chemotherapy. Neutropenic precautions including those with diet received treatment with filgrastim 480 mcg; Anc still falling, down to 80 today, discussed with Dr. yi to continue filgastrim until thursday (today is thursday) and present to cancer center on thursday for repeat labs. received levofloxacin 500 mg daily for neutorpenic prophylaxis--> changed to oral ciprofloxacin syp at discharge (5) Metastatic squamous cell carcinoma: Metastatic squamous cell carcinoma status post hemotherapy as above.? Progressive disease in spite of treatment.? Poor prognosis overall.? Family not yet ready for hospice discussion. (6) Left axillary swelling: Known to be malignant Wound care to continue as outpatient (7) Ava infection of flexural skin: Fluconazole as above (8) Anemia: Due to BM suppression from chemotherapy Tranfsused 1 PRBC during admission, hb stable at 8.4 today Patient discharged today and chronically ill but best optimized condition for now. [facility] Physical Exam Narrative: General: No acute distress, AO x3 HEENT: PERRLA, pupils bilaterally equal and reactive, pallors not present, severe mucositis persisting, however overall appears to be improving Chest: Normal vesicular breath sounds, no added sounds, equal good air entry bilaterally CVS: S1-S2 regular, no murmurs, no tachycardia, no gallops, no rubs Abdomen: Soft, nontender, no organomegaly, bowel sounds present Neuro: No focal deficits, no facial deformity, AO x3, power 5/5 in all limbs Discharge Data Studies Completed and Pending Pending at discharge Category Date Time Status Leukocyte Reduced RBC Routine Lab 02/03/23 10:44 Results Type and Screen Routine Lab 02/03/23 10:44 Results Laboratory Results WBC 0.17 10^3/uL (3.29-11.43) L* 02/06/23 10:01 RBC 2.51 10^6/uL (3.85-5.65) L 02/06/23 10:01 Hgb 8.40 g/dL (11.27-16.99) L 02/06/23 10:01 Hct 26.4 % (36-47) L 02/06/23 10:01 MCV 105.2 fl (85-98) H 02/06/23 10:01 MCH 33.5 pg (27-33) H 02/06/23 10:01 MCHC 31.8 g/dL (30-55) D 02/06/23 10:01 RDW 19.8 % (12.1-15.1) H 02/06/23 10:01 Plt Count 53 10^3/cmm (157-399) L D 02/06/23 10:01 MPV 9.7 fL (7.4-10.4) 02/06/23 10:01 Neut % (Auto) 47.0 % 02/06/23 10:01 Lymph % (Auto) 35.3 % 02/06/23 10:01 [facility] % (Auto) 5.9 % 02/06/23 10:01 Eos % (Auto) 11.8 % 02/06/23 10:01 Baso % (Auto) 0.0 % 02/06/23 10:01 Neut # (Auto) 0.08 10^3/uL (1.8-7.7) L* 02/06/23 10:01 Lymph # (Auto) 0.1 10^3/uL (0.8-4.8) L 02/06/23 10:01 [facility] # (Auto) 0.0 10^3/uL (0.2-0.9) L 02/06/23 10:01 Eos # (Auto) 0.0 10^3/uL (0.0-0.8) 02/06/23 10:01 Baso # (Auto) 0.0 10^3/uL (0.0-0.1) 02/06/23 10:01 Nucleated RBC % (auto) 0 % 02/06/23 10:01 Nucleated RBCs # 0.0 /100WBC 02/06/23 10:01 Sodium 133 mmol/L (136-145) L 02/06/23 10:01 Potassium 5.0 mmol/L (3.5-5.1) 02/06/23 10:01 Chloride 103 mmol/L (98-107) 02/06/23 10:01 Carbon Dioxide 22 mmol/L (22-29) 02/06/23 10:01 Anion Gap 13.0 (5-19) 02/06/23 10:01 BUN 22 mg/dL (6-20) H 02/06/23 10:01 Creatinine 0.7 mg/dL (0.5-0.9) 02/06/23 10:01 GFR Calculation 86.9 mL/min (90-130) L 02/06/23 10:01 Glucose 107 mg/dL (65-115) 02/06/23 10:01 Calculated Osmolality 280 mOsm/kg (285-295) L 02/06/23 10:01 Calcium 7.9 mg/dL (8.5-10.5) L 02/06/23 10:01 Magnesium 2.3 mg/dL (1.7-2.3) 02/04/23 05:01 Total Bilirubin 0.3 mg/dL (0.15-1.2) 02/06/23 10:01 AST 5 U/L (0-32) 02/06/23 10:01 ALT < 5 U/L (0-33) 02/06/23 10:01 Alkaline Phosphatase 44 U/L (35-105) 02/06/23 10:01 Total Protein 5.9 g/dL (6.6-8.7) L 02/06/23 10:01 Albumin 2.5 g/dL (3.5-5.2) L 02/06/23 10:01 Globulin 3.4 g/dL (1.3-4.6) 02/06/23 10:01 Blood Type A Positive 02/03/23 10:44 Rho(D) Type Positive 02/03/23 10:44 Antibody Screen Negative 02/03/23 10:44 Crossmatch See Detail 02/03/23 10:44 Vitals Last Vital Signs Temp 96.7 F L 02/06/23 12:16 Pulse 73 02/06/23 12:16 Resp 17 02/06/23 12:16 BP 112/67 02/06/23 12:16 Pulse Ox 93 02/06/23 12:16 O2 Del Method Nasal Cannula 02/06/23 08:00 O2 Flow Rate 2 02/06/23 08:00 Discharge Plan Discharge Patient Disposition: Home Condition: Fair Prescriptions: New ciprofloxacin 500 mg/5 mL suspension,microcapsule recon 500 mg PO Q12H Qty: 100 0RF citalopram 20 mg Tablet 20 mg PO DAILY 30 Days Qty: 30 0RF Diflucan 40 mg/mL Suspension For Reconstitution 100 mg PO Q24H 10 Days Qty: 25 0RF Zarxio 480 mcg/0.8 mL Syringe 480 mcg SUBCUT Q24H 3 Days Qty: 2.4 0RF famotidine 40 mg/5 mL (8 mg/mL) suspension 20 mg PO BID 30 Days Qty: 150 0RF folic acid 1 mg tablet 1,000 mcg PO DAILY 30 Days Qty: 30 0RF ondansetron 4 mg tablet,disintegrating 4 mg PO Q8H PRN (Reason: nausea and vomiting) 7 Days Qty: 20 0RF Continued oxycodone 15 mg tablet 15 mg PO QID PRN (Reason: pain) 30 Days Qty: 120 0RF Rx Instructions: (MEDICATION ON HOLD PER PTS 12/06/22) cover on the fund gabapentin 300 mg capsule 300 mg PO TID 30 Days Qty: 90 0RF Rx Instructions: (MEDICATION ON HOLD PER PTS 12/06/22) cover on the fund prochlorperazine maleate [Compazine] 10 mg tablet 10 mg PO Q4H PRN (Reason: Mild Nausea) Qty: 30 3RF lorazepam 1 mg tablet 0.5 - 1 mg PO Q6H PRN (Reason: Severe Nausea) Qty: 30 3RF levothyroxine 75 mcg Tablet 75 mcg PO QAM Discharge Orders: Discharge Order (Routine); Ordered 02/06/23 Ordered By: Susy Soto Referrals: Raoul Yi MD [Hospitalist] - 02/09/23 2:00 pm (APPOINTMENT WILL BE WITH [facility] DUE TO DR YI BEING OUT OF OFFICE. ) Lyle Rider DO [Primary Care Provider] - 02/18/23 11:20 am Discharge Diet: As Directed Discharge Activity: Resume usual activity Patient Instructions: Ciprofloxacin (By mouth), Famotidine (By mouth), Fluconazole (By mouth), Folic Acid (By mouth), Filgrastim (By injection), Citalopram (By mouth), Oral Candidiasis (GEN), Neutropenia (GEN), Reverse Isolation (GEN), Opioid Safety Discharge Attestations Time Spent in Discharge Care*: greater than 30 min Status at Discharge: Cognitive status at discharge: mildly impaired cognition , Behavioral status at discharge: cooperative , Quality Metrics Clinical Quality Measures [ No reported AMI, CVA or VTE this stay] Coding Level of Care Code Acute Code for Chg Fwd Diagnoses Methotrexate toxicity T45.1X1A Mucositis (ulcerative) due to antineoplastic therapy K12.31 Oropharyngeal candidiasis B37.0 Neutropenia D70.9 Metastatic squamous cell carcinoma Left axillary swelling M79.89 Ava infection of flexural skin B37.2 Anemia D64.9
== END 2023-02-06 14:35 | disposition home or self-care (01) | DRG 809 ==
PROVIDERS: Admitting Provider Student in an Organized Health Care Education/Training Program; PCP Electrodiagnostic Medicine; Visit Provider Student in an Organized Health Care Education/Training Program
DX: D70.1 Agranulocytosis secondary to cancer chemotherapy (principal); C77.8 Secondary and unspecified malignant neoplasm of lymph nodes of multiple regions; K12.31 Oral mucositis (ulcerative) due to antineoplastic therapy; T45.1X5A Adverse effect of antineoplastic and immunosuppressive drugs, initial encounter; C44.529 Squamous cell carcinoma of skin of other part of trunk; D64.81 Anemia due to antineoplastic chemotherapy; Z79.891 Long term (current) use of opiate analgesic; F17.210 Nicotine dependence, cigarettes, uncomplicated
CPT/HCPCS: 36415; 36430; 36592; 80053; 83735; 85025; 86850; 86900; 86920; 96372; C9113; J0640; J1170; J1450; J1650; J1956; J2270; J7042; P9040; Q5101

== ENCOUNTER 2023-02-16 09:08 | Oncology outpatient (recurring) (ONCR) | payer SELFPAY ==
[2023-01-22 14:50] LABS: Basophils % 0.5 %; Eosinophils # 0.2 10^3/uL (0.0-0.8); Hematocrit 29.7 % (36-47); Lymphocytes # 0.6 10^3/uL (0.8-4.8); Lymphocytes % 9.9 %; Mean Corpuscular HGB Conc 33.7 g/dL (30-55); Mean Corpuscular Hemoglobin 32.9 pg (27-33); Mean Corpuscular Volume 97.7 fl (85-98); Mean Platelet Volume 8.4 fL (7.4-10.4); Monocytes # 0.3 10^3/uL (0.2-0.9); Monocytes % 6.1 %; Neutrophils # 4.47 10^3/uL (1.8-7.7); Neutrophils % 80.1 %; Nucleated Red Blood Cells % 0 %; Platelet Count 383 10^3/cmm (157-399); Red Blood Count 3.04 10^6/uL (3.85-5.65); Red Cell Distribution Width 21.2 % (12.1-15.1); White Blood Count 5.58 10^3/uL (3.29-11.43)
[2023-01-26 15:26] VITALS: BP 111/76; PULSE 84; RESP 16; TEMP 36.1; O2SAT 96
[2023-01-26 16:04] LABS: Basophils % 0.5 %; Eosinophils # 0.1 10^3/uL (0.0-0.8); Eosinophils % 2.1 %; Hematocrit 30.6 % (36-47); Lymphocytes # 0.6 10^3/uL (0.8-4.8); Lymphocytes % 10.3 %; Mean Corpuscular HGB Conc 33.3 g/dL (30-55); Mean Corpuscular Hemoglobin 33.1 pg (27-33); Mean Corpuscular Volume 99.4 fl (85-98); Monocytes # 0.4 10^3/uL (0.2-0.9); Monocytes % 6.3 %; Neutrophils # 4.99 10^3/uL (1.8-7.7); Neutrophils % 80.2 %; Nucleated Red Blood Cells % 0 %; Platelet Count 343 10^3/cmm (157-399); Red Blood Count 3.08 10^6/uL (3.85-5.65); Red Cell Distribution Width 21.5 % (12.1-15.1); White Blood Count 6.22 10^3/uL (3.29-11.43)
[2023-01-27] MEDS: sodium chloride 0.9% 250 ML 75 ML IV (16:09)
[2023-01-27 16:48] LABS: Alanine Aminotransferase < 5 U/L (0-33); Albumin Level 3.3 g/dL (3.5-5.2); Alkaline Phosphatase 69 U/L (35-105); Blood Urea Nitrogen 8 mg/dL (6-20); Calcium 8.1 mg/dL (8.5-10.5); Carbon Dioxide 29 mmol/L (22-29); Chloride 98 mmol/L (98-107); Globulin 3.7 g/dL (1.3-4.6); Glomerular Filtration Rate 57.6 mL/min (90-130); Glucose 102 mg/dL (65-115); Osmolality Calculated 279 mOsm/kg (285-295); Sodium 135 mmol/L (136-145); Total Bilirubin 0.3 mg/dL (0.15-1.2)
[2023-01-27 16:51] LABS: Anion Gap 12.3 (5-19); Potassium 4.3 mmol/L (3.5-5.1)
[2023-01-27 16:52] LABS: Aspartate Amino Transferase 6 U/L (0-32)
[2023-01-27 17:00] VITALS: BP 102/61; PULSE 79; RESP 16; TEMP 35.7; O2SAT 98
[2023-02-02 15:43] VITALS: BP 99/66; PULSE 102; RESP 16; TEMP 36.9; O2SAT 93
[2023-02-02 16:14] LABS: Eosinophils # 0.1 10^3/uL (0.0-0.8); Hematocrit 22.9 % (36-47); Lymphocytes # 0.1 10^3/uL (0.8-4.8); Lymphocytes % 4.2 %; Mean Corpuscular HGB Conc 34.1 g/dL (30-55); Mean Corpuscular Hemoglobin 34.1 pg (27-33); Mean Platelet Volume 9.8 fL (7.4-10.4); Monocytes % 1.7 %; Nucleated Red Blood Cells % 0 %; Platelet Count 190 10^3/cmm (157-399); Red Blood Count 2.29 10^6/uL (3.85-5.65); Red Cell Distribution Width 20.4 % (12.1-15.1); White Blood Count 1.19 10^3/uL (3.29-11.43)
[2023-02-02 16:42] LABS: Neutrophils # 0.88 10^3/uL (1.8-7.7); Slide Review Slide Review Perform
[2023-02-03] MEDS: sodium chloride 0.9% 1,000 ML 999 ML IV (11:23)
[2023-02-03] MEDS: ondansetron 2 mg/ML SDV 2 mL 8 MG IVP (11:24)
[2023-02-03 11:42] LABS: Alanine Aminotransferase < 5 U/L (0-33); Alkaline Phosphatase 58 U/L (35-105); Blood Urea Nitrogen 31 mg/dL (6-20); Calcium 8.5 mg/dL (8.5-10.5); Carbon Dioxide 22 mmol/L (22-29); Chloride 91 mmol/L (98-107); Globulin 4.1 g/dL (1.3-4.6); Glomerular Filtration Rate 57.6 mL/min (90-130); Glucose 106 mg/dL (65-115); Osmolality Calculated 271 mOsm/kg (285-295); Sodium 127 mmol/L (136-145); Total Bilirubin 0.5 mg/dL (0.15-1.2); Total Protein 7.1 g/dL (6.6-8.7)
[2023-02-03 11:47] LABS: Aspartate Amino Transferase 6 U/L (0-32)
[2023-02-03] MEDS: levofloxacin-dextrose 5 % 500 MG/100 ML PREMIX 100 MG IV (11:51)
[2023-02-03 14:10] VITALS: RESP 16
[2023-02-03] MEDS: morphine 4 mg/mL SDV 1 mL IVP (14:10)
[2023-02-03] MEDS: sodium chloride 0.9% 1,000 ML 125 ML IV (14:10)
[2023-02-03 15:00] VITALS: BP 106/77; PULSE 68; RESP 16; TEMP 36.3; O2SAT 93
--- NOTE | 2023-02-03 15:34 | PC.NURSE ---
Patient here with severe oral pain and pain in throat. Unable to take any liquids, pills or solids. Severe pain to left breast and arm related to open skin to entire breast and armpit area. Foul smelling thin green drainage noted to entire breast and armpit area. Gown changed with patient refusing any wound care or cleansing. Yumi area and abdominal folds red, draining, with open ulcers in entire abdominal fold. Patient refused any wound care. Dr. Ervin notified of lab results, pain, and total body condition. Patient admitted to room 251-2 with bedside report given after patient placed in bed with at bedside.
[2023-02-09 14:15] VITALS: BP 106/68; PULSE 81; RESP 16; TEMP 36.4; O2SAT 92
[2023-02-09 14:40] LABS: Eosinophils # 0.1 10^3/uL (0.0-0.8); Eosinophils % 20.5 %; Lymphocytes # 0.1 10^3/uL (0.8-4.8); Lymphocytes % 30.8 %; Mean Corpuscular HGB Conc 33.5 g/dL (30-55); Mean Corpuscular Hemoglobin 33.3 pg (27-33); Mean Corpuscular Volume 99.6 fl (85-98); Mean Platelet Volume 11.5 fL (7.4-10.4); Monocytes % 7.7 %; Neutrophils % 30.7 %; Nucleated Red Blood Cells % 0 %; Red Blood Count 2.31 10^6/uL (3.85-5.65); Red Cell Distribution Width 18.5 % (12.1-15.1)
[2023-02-09 15:04] LABS: Alanine Aminotransferase < 5 U/L (0-33); Alkaline Phosphatase 80 U/L (35-105); Anion Gap 10.6 (5-19); Aspartate Amino Transferase 5 U/L (0-32); Blood Urea Nitrogen 21 mg/dL (6-20); Calcium 8.3 mg/dL (8.5-10.5); Carbon Dioxide 28 mmol/L (22-29); Chloride 100 mmol/L (98-107); Globulin 3.3 g/dL (1.3-4.6); Glucose 96 mg/dL (65-115); Osmolality Calculated 283 mOsm/kg (285-295); Potassium 3.6 mmol/L (3.5-5.1); Sodium 135 mmol/L (136-145); Total Bilirubin 0.6 mg/dL (0.15-1.2); Total Protein 6.3 g/dL (6.6-8.7)
[2023-02-09] MEDS: sodium chloride 0.9% 1,000 ML 999 ML IV (15:09)
[2023-02-09 15:56] LABS: White Blood Count 0.39 10^3/uL (3.29-11.43)
[2023-02-09 15:57] LABS: Neutrophils # 0.12 10^3/uL (1.8-7.7); Platelet Count 7 10^3/cmm (157-399); Slide Review Slide Review Perform
[2023-02-09 16:45] VITALS: BP 104/53; PULSE 84; RESP 16; TEMP 36.4; O2SAT 91
[2023-02-10] VITALS (14 sets, daily range): BP systolic 99–121; BP diastolic 60–77; PULSE 57–71; RESP 17–18; TEMP 36.2–36.6; O2SAT 93–96
[2023-02-10] MEDS: sodium chloride 0.9% 250 ML 75 ML IV (08:54)
[2023-02-10] MEDS: acetaminophen 325 mg Tablet 650 MG PO (08:55)
[2023-02-10] MEDS: diphenhydrAMINE 50 mg/mL SDV 1mL 25 MG IVP (08:56)
[2023-02-12 09:06] VITALS: BP 113/71; PULSE 75; RESP 18; TEMP 36.6; O2SAT 94
[2023-02-12 09:28] LABS: Basophils # 0.1 10^3/uL (0.0-0.1); Basophils % 1.8 %; Eosinophils # 0.1 10^3/uL (0.0-0.8); Eosinophils % 2.1 %; Lymphocytes # 0.3 10^3/uL (0.8-4.8); Lymphocytes % 6.4 %; Mean Corpuscular HGB Conc 33.5 g/dL (30-55); Mean Corpuscular Hemoglobin 32.5 pg (27-33); Mean Corpuscular Volume 96.9 fl (85-98); Monocytes # 0.2 10^3/uL (0.2-0.9); Monocytes % 5.9 %; Neutrophils # 3.19 10^3/uL (1.8-7.7); Neutrophils % 81.7 %; Nucleated Red Blood Cells % 0 %; Red Cell Distribution Width 18.7 % (12.1-15.1)
[2023-02-12 10:12] LABS: Slide Review Slide Review Perform
[2023-02-12 10:18] LABS: Platelet Count 8 10^3/cmm (157-399)
[2023-02-12] MEDS: sodium chloride 0.9% 250 ML 75 ML IV (14:24)
[2023-02-12] MEDS: diphenhydrAMINE 50 mg/mL SDV 1mL 25 MG IVP (14:27)
[2023-02-12] MEDS: acetaminophen 325 mg Tablet 650 MG PO (14:29)
[2023-02-12 14:33] VITALS: BP 111/77; PULSE 90; RESP 16; TEMP 36.1; O2SAT 97
[2023-02-12 14:42] VITALS: BP 111/53; PULSE 75; RESP 16; TEMP 36.3; O2SAT 93
[2023-02-12 14:57] VITALS: PULSE 74; RESP 16; TEMP 36.4; O2SAT 93
[2023-02-12 14:59] VITALS: BP 106/55; PULSE 60; RESP 16; O2SAT 92
[2023-02-16 09:50] LABS: Basophils % 0.7 %; Eosinophils % 0.7 %; Hematocrit 29.2 % (36-47); Lymphocytes # 0.3 10^3/uL (0.8-4.8); Lymphocytes % 8.9 %; Mean Corpuscular HGB Conc 33.9 g/dL (30-55); Mean Corpuscular Hemoglobin 32.2 pg (27-33); Mean Corpuscular Volume 95.1 fl (85-98); Mean Platelet Volume 10.2 fL (7.4-10.4); Monocytes # 0.2 10^3/uL (0.2-0.9); Monocytes % 6.1 %; Neutrophils # 1.92 10^3/uL (1.8-7.7); Nucleated Red Blood Cells % 0 %; Platelet Count 93 10^3/cmm (157-399); Red Blood Count 3.07 10^6/uL (3.85-5.65)
[2023-02-16 10:06] LABS: Alanine Aminotransferase < 5 U/L (0-33); Albumin Level 3.2 g/dL (3.5-5.2); Alkaline Phosphatase 84 U/L (35-105); Aspartate Amino Transferase 5 U/L (0-32); Blood Urea Nitrogen 9 mg/dL (6-20); Calcium 8.1 mg/dL (8.5-10.5); Carbon Dioxide 31 mmol/L (22-29); Chloride 94 mmol/L (98-107); Globulin 3.4 g/dL (1.3-4.6); Glomerular Filtration Rate 74.5 mL/min (90-130); Glucose 80 mg/dL (65-115); Osmolality Calculated 282 mOsm/kg (285-295); Sodium 137 mmol/L (136-145); Total Bilirubin 0.4 mg/dL (0.15-1.2); Total Protein 6.6 g/dL (6.6-8.7)
[2023-02-16 10:54] LABS: Neutrophils % 87.6 %
[2023-02-16 10:55] LABS: Slide Review Slide Review Perform
--- NOTE | 2023-02-16 11:51 | PC.NURSE ---
Spoke with GIOVANY Kumar regarding pts Hgb of 9.9 and Plt of 93. States to call pt and let her know she will not need a blood transfusion or platelets. Called pt, spoke with spouse, notified of lab results and pt does not need to come back for blood/platelets today. YANET
== END 2023-02-17 23:59 | disposition home or self-care (01) ==
PROVIDERS: Nurse Practitioner Family; Absent Provider Radiology Radiation Oncology; PCP Electrodiagnostic Medicine; Visit Provider Internal Medicine Medical Oncology
DX: C44.529 Squamous cell carcinoma of skin of other part of trunk (principal); C79.9 Secondary malignant neoplasm of unspecified site
CPT/HCPCS: 36415; 36430; 36592; 80053; 85025; 86850; 86900; 86920; 96360; 96361; 96365; 96366; 96374; 96375; 96413; J0640; J1100; J1200; J1642; J1956; J2270; J2405; J7030; J7050; J9260; P9016; P9040

== ENCOUNTER 2023-03-17 14:30 | Oncology outpatient (recurring) (ONCR) | payer SELFPAY ==
[2023-02-23 15:28] VITALS: BP 107/75; PULSE 85; RESP 16; TEMP 36.2; O2SAT 94
[2023-03-02 15:16] VITALS: BP 111/71; PULSE 87; RESP 16; TEMP 36.5; O2SAT 95
[2023-03-09 15:21] VITALS: BP 120/79; PULSE 99; RESP 16; TEMP 35.9; O2SAT 95
[2023-03-10 10:13] VITALS: BP 99/62; PULSE 82; RESP 17; TEMP 36.6; O2SAT 96
[2023-03-10 10:30] LABS: Basophils # 0.1 10^3/uL (0.0-0.1); Basophils % 0.6 %; Eosinophils # 0.1 10^3/uL (0.0-0.8); Eosinophils % 0.5 %; Hematocrit 23.7 % (36-47); Lymphocytes # 0.3 10^3/uL (0.8-4.8); Lymphocytes % 3.3 %; Mean Corpuscular HGB Conc 33.8 g/dL (30-55); Mean Corpuscular Hemoglobin 32.1 pg (27-33); Mean Corpuscular Volume 95.2 fl (85-98); Mean Platelet Volume 9.2 fL (7.4-10.4); Monocytes # 0.7 10^3/uL (0.2-0.9); Monocytes % 7.2 %; Neutrophils # 8.65 10^3/uL (1.8-7.7); Neutrophils % 85.3 %; Nucleated Red Blood Cells % 0 %; Platelet Count 322 10^3/cmm (157-399); Red Blood Count 2.49 10^6/uL (3.85-5.65); Red Cell Distribution Width 16.1 % (12.1-15.1); White Blood Count 10.13 10^3/uL (3.29-11.43)
[2023-03-10] MEDS: sodium chloride 0.9% 1,000 ML 999 ML IV (10:33)
[2023-03-10] MEDS: ondansetron 2 mg/ML SDV 2 mL 8 MG IVP (10:34)
[2023-03-10 10:51] LABS: Alanine Aminotransferase < 5 U/L (0-33); Albumin Level 3.2 g/dL (3.5-5.2); Alkaline Phosphatase 66 U/L (35-105); Aspartate Amino Transferase 5 U/L (0-32); Blood Urea Nitrogen 10 mg/dL (6-20); Calcium 8.6 mg/dL (8.5-10.5); Carbon Dioxide 28 mmol/L (22-29); Chloride 89 mmol/L (98-107); Globulin 3.4 g/dL (1.3-4.6); Glomerular Filtration Rate 103.8 mL/min (90-130); Glucose 78 mg/dL (65-115); Osmolality Calculated 276 mOsm/kg (285-295); Sodium 134 mmol/L (136-145); Total Bilirubin 0.4 mg/dL (0.15-1.2); Total Protein 6.6 g/dL (6.6-8.7)
[2023-03-10 10:58] LABS: Anion Gap 20.3 (5-19); Potassium 3.3 mmol/L (3.5-5.1)
[2023-03-10 12:04] VITALS: BP 119/70; PULSE 60; O2SAT 96
[2023-03-17 14:33] VITALS: BP 96/68; PULSE 93; RESP 16; TEMP 36.4; O2SAT 98
[2023-03-17 14:54] LABS: Hematocrit 23.2 % (36-47); Mean Corpuscular HGB Conc 33.2 g/dL (30-55); Mean Corpuscular Hemoglobin 32.2 pg (27-33); Mean Corpuscular Volume 97.1 fl (85-98); Mean Platelet Volume 10.2 fL (7.4-10.4); Platelet Count 329 10^3/cmm (157-399); Red Blood Count 2.39 10^6/uL (3.85-5.65); Red Cell Distribution Width 16.7 % (12.1-15.1); White Blood Count 21.46 10^3/uL (3.29-11.43)
[2023-03-17 15:25] LABS: Alanine Aminotransferase 9 U/L (0-33); Albumin Level 3.4 g/dL (3.5-5.2); Alkaline Phosphatase 51 U/L (35-105); Blood Urea Nitrogen 23 mg/dL (6-20); Calcium 8.7 mg/dL (8.5-10.5); Carbon Dioxide 30 mmol/L (22-29); Chloride 98 mmol/L (98-107); Globulin 2.5 g/dL (1.3-4.6); Glomerular Filtration Rate 57.6 mL/min (90-130); Glucose 112 mg/dL (65-115); Osmolality Calculated 290 mOsm/kg (285-295); Sodium 138 mmol/L (136-145); Thyroid Stimulating Hormone 23.41 uIU/mL (0.27-4.20); Total Bilirubin 0.3 mg/dL (0.15-1.2); Total Protein 5.9 g/dL (6.6-8.7)
[2023-03-17 15:26] LABS: Anion Gap 13.5 (5-19); Aspartate Amino Transferase 8 U/L (0-32); Potassium 3.5 mmol/L (3.5-5.1)
[2023-03-17 15:35] LABS: Slide Review Slide Review Perform; Total Cells Counted 100 (0-100)
[2023-03-17 15:40] LABS: Absolute Neutrophil 19.7 10^3/cmm (1.4-6.5); Absolute Segmented Neutrophil 19.3 10/cmm (1.6-7.1); Band Neutrophils Absolute 0.4 10^3/cmm (0.0-1.2); Eosinophils 0 %; Lymphocytes 2 %; Lymphocytes Absolute 0.4 10^3/cmm (1.2-3.4); Monocytes Absolute 0.6 10^3/cmm (0.1-0.6); Platelet Estimate Normal (Normal); Segmented Neutrophils 90 %
[2023-03-17 15:41] LABS: Anisocytosis 1+; Macrocytosis Trace; Polychromasia Trace
[2023-03-18 11:28] LABS: Iron 79 ug/dL (37-145)
[2023-03-18 11:38] LABS: Total Iron Binding Capacity 232 mcg/dl; Unsaturated Iron Binding 153 ug/dL (112-347)
== END 2023-03-19 23:59 | disposition home or self-care (01) ==
PROVIDERS: Absent Provider Radiology Radiation Oncology; PCP Electrodiagnostic Medicine; Visit Provider Internal Medicine Medical Oncology
DX: C44.529 Squamous cell carcinoma of skin of other part of trunk (principal); D64.9 Anemia, unspecified; E03.9 Hypothyroidism, unspecified
CPT/HCPCS: 36591; 36592; 74019; 80053; 83540; 83550; 84443; 85007; 85025; 96365; 96375; J1100; J1642; J2405; J7030

== ENCOUNTER 2023-03-30 09:42 | Emergency (ER) | payer SELFPAY ==
[2023-03-30 09:55] VITALS: BP 90/57; PULSE 99; RESP 18; TEMP 36.5; O2SAT 98; BMI 28.0
--- NOTE | 2023-03-30 10:26 | W.ED.GENADLT ---
HPI - General Adult General: Chief complaint: General Medical Stated complaint: swelling in feet Time Seen by Provider: 03/30/23 10:17 Source: patient Mode of arrival: ambulatory History of Present Illness: 57-year-old female with a history of squamous cell CA in the left axilla. She is undergone radiation and recently started chemo but did not tolerate well and it was suspended. She has noticed some increased swelling in her legs. She has swelling in the left axilla which is actually a little better today. She has some restricted range of motion because of discomfort from the cancer and the radiation treatments so frequently has had yeast infections in the area. Yesterday she was disoriented for period of time that seems to have improved. She is on Lasix for the swelling in her legs no calf pain no chest pain or significant increase in shortness of breath. Onset (ago): minute(s) Location: lower extremity Severity: mild Quality: aching Pain Consistency: constant Relieving factors: none Exacerbating factors: none Associated symptoms: Deny chest pain, confusion, cough, diaphoresis, decreased appetite, dyspnea, fevers/chills, headache(s), malaise, nausea, rash, palpitations, seizures, short of breath, syncope, vomiting or weakness Treatments prior to arrival: none Review of Systems Const: Denies: fever(s), chills, malaise or diaphoresis Card: Denies: chest pain, palpitations or syncope Resp: Denies: dyspnea GI: Denies: abdominal pain, nausea or vomiting : Denies: dysuria, urinary frequency or urinary urgency Musc: Denies: neck pain or back pain Skin/Breast: Denies: rash Neuro: Denies: headache(s) or confusion PFSH ED PFSH: Medical History Myocardial injury Tobacco use disorder Skin cancer History of sebaceous cyst Surgical History History of delivery (1992) Family History Father Cancer Hyperlipidemia Hypertension Stroke Other CAD (coronary artery disease) Denies family history of Diabetes Clotting disorder Dementia Psychiatric illness Chronic kidney disease (CKD) Suicide Anesthesia complication Bleeding disorder Lung disease Social History Smoking and tobacco/nicotine status: current every day tobacco/nicotine user cigarettes Packs smoked per day: 0.75 Years cigarettes smoked: 35 Alcohol intake: never Substance/Drug Use: never Physical Exam Const: GENERAL APPEARANCE: cooperative ORIENTATION/CONSCIOUSNESS: Yes awake, Yes oriented to person, Yes oriented to place and Yes oriented to time HENMT: COMMON NORMALS: normocephalic, atraumatic and hearing grossly normal bilaterally HEAD & SCALP: normocephalic and atraumatic Resp: COMMON NORMALS: normal respiratory effort, No retractions, No use of accessory muscles and clear to auscultation bilaterally AUSCULTATION: clear to auscultation bilaterally Cardio: COMMON NORMALS: regular rate, regular rhythm and No murmurs present (Cardio) RATE: regular rate RHYTHM: regular rhythm GI: COMMON NORMALS: Soft to palpation and No hepatosplenomegaly present AUSCULTATION: Yes normoactive bowel sounds PALPATION: Yes Soft to palpation, No Tenderness to palpation present (GI), No Guarding due to palpation present (GI) and Yes No hepatosplenomegaly present Extremity: COMMON NORMALS: capillary refill normal and no calf tenderness GENERAL: Yes edema (2+ edema just proximal to the malleoli of the ankles bilaterally) OTHER: Axilla some mild superficial redness no induration there is some swelling at the original site of the cancer no active drainage no apparent abscesses appears to superficial Ava infection Neuro: SENSORIUM/ORIENTATION: Yes oriented to person, Yes oriented to place and Yes oriented to time Skin: COMMON NORMALS: no rashes or lesions noted GENERAL SKIN EXAM: no rashes or lesions noted Course Vital Signs: Vital signs: Vital Signs Temperature 97.7 F 03/30/23 09:55 Pulse Rate 88 03/30/23 12:36 Respiratory Rate 18 03/30/23 12:36 Blood Pressure 80/39 03/30/23 12:36 Pulse Oximetry 97 03/30/23 12:36 Oxygen Delivery Me thod Nasal Cannula 03/30/23 12:36 Oxygen Flow Rate 3 03/30/23 12:36 MDM - General Adult Medical Decision Making Patient has a candidal skin infection additionally has swelling in her lower extremities but there is no evidence of DVT on ultrasound. I will increase her Lasix to 60 mg twice daily have her follow-up with her primary care doctor. She should stay on the elevated dose Lasix for 5 days. And then follow resume her regular dose follow-up with primary care in 4 to 5 days to recheck BMP and reevaluate. Medical Records I reviewed the patient's medical records. Lab Data I reviewed the patient's lab results. 03/30/23 11:03 03/30/23 11:03 Laboratory Results WBC 5.25 10^3/uL (3.29-11.43) 03/30/23 11:03 RBC 2.84 10^6/uL (3.85-5.65) L 03/30/23 11:03 Hgb 9.20 g/dL (11.27-16.99) L 03/30/23 11:03 Hct 29.0 % (36-47) L 03/30/23 11:03 MCV 102.1 fl (85-98) H 03/30/23 11:03 MCH 32.4 pg (27-33) 03/30/23 11:03 MCHC 31.7 g/dL (30-55) 03/30/23 11:03 RDW 18.7 % (12.1-15.1) H 03/30/23 11:03 Plt Count 157 10^3/cmm (157-399) 03/30/23 11:03 MPV 9.2 fL (7.4-10.4) 03/30/23 11:03 Neut % (Auto) 89.6 % 03/30/23 11:03 Lymph % (Auto) 4.4 % 03/30/23 11:03 [facility] % (Auto) 3.8 % 03/30/23 11:03 Eos % (Auto) 1.0 % 03/30/23 11:03 Baso % (Auto) 0.2 % 03/30/23 11:03 Neut # (Auto) 4.71 10^3/uL (1.8-7.7) 03/30/23 11:03 Lymph # (Auto) 0.2 10^3/uL (0.8-4.8) L 03/30/23 11:03 [facility] # (Auto) 0.2 10^3/uL (0.2-0.9) 03/30/23 11:03 Eos # (Auto) 0.1 10^3/uL (0.0-0.8) 03/30/23 11:03 Baso # (Auto) 0.0 10^3/uL (0.0-0.1) 03/30/23 11:03 Nucleated RBC % (auto) 0 % 03/30/23 11:03 Nucleated RBCs # 0.0 /100WBC 03/30/23 11:03 Sodium 135 mmol/L (136-145) L 03/30/23 11:03 Potassium 4.0 mmol/L (3.5-5.1) 03/30/23 11:03 Chloride 99 mmol/L (98-107) 03/30/23 11:03 Carbon Dioxide 29 mmol/L (22-29) 03/30/23 11:03 Anion Gap 11.0 (5-19) 03/30/23 11:03 BUN 23 mg/dL (6-20) H 03/30/23 11:03 Creatinine 0.9 mg/dL (0.5-0.9) 03/30/23 11:03 GFR Calculation 65.0 mL/min (90-130) L 03/30/23 11:03 Glucose 96 mg/dL (65-115) 03/30/23 11:03 Calculated Osmolality 284 mOsm/kg (285-295) L 03/30/23 11:03 Lactic Acid 1.2 mmol/L (0.5-2.2) 03/30/23 11:03 Calcium 7.9 mg/dL (8.5-10.5) L 03/30/23 11:03 Total Bilirubin 0.7 mg/dL (0.15-1.2) 03/30/23 11:03 AST 5 U/L (0-32) 03/30/23 11:03 ALT 6 U/L (0-33) 03/30/23 11:03 Alkaline Phosphatase 58 U/L (35-105) 03/30/23 11:03 Total Protein 5.3 g/dL (6.6-8.7) L 03/30/23 11:03 Albumin 2.8 g/dL (3.5-5.2) L 03/30/23 11:03 Globulin 2.5 g/dL (1.3-4.6) 03/30/23 11:03 All radiology interpretation(s) finalized by discharge Discharge Plan Discharge Patient Disposition: Home Clinical Impression: Leg edema, Candidal skin infection, Anemia, Squamous cell carcinoma of skin of other part of trunk Condition: Stable Prescriptions: No Action oxycodone 15 mg tablet 15 mg PO QID PRN (Reason: pain) 30 Days Qty: 120 0RF Rx Instructions: (MEDICATION ON HOLD PER PTS 12/06/22) cover on the fund pantoprazole [Protonix] 40 mg tablet,delayed release (DR/EC) 40 mg PO BID Qty: 60 0RF dexamethasone 4 mg tablet 4 mg PO BID Qty: 60 0RF olanzapine [Zyprexa Zydis] 5 mg tablet,disintegrating 5 mg PO BID Qty: 60 0RF ondansetron 4 mg tablet,disintegrating 4 mg PO Q8H PRN (Reason: nausea and vomiting) 7 Days Qty: 30 0RF levothyroxine 75 mcg tablet 75 mcg PO QAM Qty: 30 0RF furosemide [Lasix] 40 mg tablet 40 mg PO DAILY Qty: 30 0RF potassium chloride 10 mEq capsule, extended release 10 meq PO DAILY Qty: 30 0RF sennosides [senna] 8.6 mg tablet 17.2 mg PO BID Qty: 120 0RF lactulose 20 gram/30 mL solution 20 g PO .COMPLEX PRN (Reason: constipation) Qty: 1200 0RF Rx Instructions: 20 grams orally every 2 hours until bowel movement PRN; Discharge Orders: Discharge ED (Routine); Ordered 03/30/23 Ordered By: Fernando Soares Referrals: Lyle Rider, [Primary Care Provider] - Discharge Diet: Usual diet Discharge Activity: Increase activity as tolerated Patient Instructions: Opioid Safety, Pain Management Activity Restrictions/Additional Instructions: Thank you for choosing [facility] for your healthcare needs today. Please realize this is an emergency room and that we are providing you with a medical screening exam and this may not be complete and all inclusive of all the testing and or work up that you may need to determine your ailment or severity of your illness. It is very important that you follow up as instructed or that you return to the Emergency Department should you have concerns or if your condition changes or worsens in any way. You are seen today for swelling of lower extremities. You are anemic which has been chronic he has a candidal skin infection which also has been chronic per your report. Recommend increasing your Lasix to 60 mg twice daily for the next 4 days and then follow-up with your primary care doctor for repeat lab testing and evaluation Coding Level of Care Code ED Supervisor [employer] for Naima Pruitt
--- NOTE | 2023-03-30 10:35 | USCV_ITS ---
Giacomo Plunkett Age: 57 Gender: F : 1965 Exam Date: 03/30/2023 11:39 Ordering Phys: Fernando Soares DO Technologist: ADAM Exam Location: [facility] [place] Indication: LE Swelling HISTORY: Lower extremity swelling. PROCEDURES: Venous duplex imaging was performed in bilateral lower extremities. The following venous structures were evaluated: common femoral vein, profunda vein, proximal portion of the greater saphenous vein, superficial femoral vein, and the popliteal vein. In addition, the posterior tibial and peroneal trunk were evaluated. Serial compression, augmentation maneuvers, and spectral Doppler flow evaluation were performed. FINDINGS: No evidence of DVT seen in any vessel visualized at this time. CONCLUSIONS No evidence of right lower extremity DVT. No evidence of left lower extremity DVT. Braxton Nuñez MD (Electronically Signed) Final Date: 30 March 2023 12:03 S
[2023-03-30 10:57] VITALS: BP 90/45; PULSE 88; RESP 18; O2SAT 98
[2023-03-30 11:31] LABS: Basophils % 0.2 %; Eosinophils # 0.1 10^3/uL (0.0-0.8); Lymphocytes # 0.2 10^3/uL (0.8-4.8); Lymphocytes % 4.4 %; Mean Corpuscular HGB Conc 31.7 g/dL (30-55); Mean Corpuscular Hemoglobin 32.4 pg (27-33); Mean Corpuscular Volume 102.1 fl (85-98); Mean Platelet Volume 9.2 fL (7.4-10.4); Monocytes # 0.2 10^3/uL (0.2-0.9); Monocytes % 3.8 %; Neutrophils # 4.71 10^3/uL (1.8-7.7); Neutrophils % 89.6 %; Nucleated Red Blood Cells % 0 %; Platelet Count 157 10^3/cmm (157-399); Red Blood Count 2.84 10^6/uL (3.85-5.65); Red Cell Distribution Width 18.7 % (12.1-15.1); White Blood Count 5.25 10^3/uL (3.29-11.43)
--- NOTE | 2023-03-30 11:38 | PC.PHAR ---
PTS' STATES STOPPED ALL MEDICATIONS BECAUSE THEY DO NOT KNOW WHAT IS CAUSING THE PROBLEMS. 03/30/23
[2023-03-30 11:50] LABS: Lactic Sepsis W/Reflex 1.2 mmol/L (0.5-2.2)
[2023-03-30 11:51] LABS: Alanine Aminotransferase 6 U/L (0-33); Albumin Level 2.8 g/dL (3.5-5.2); Alkaline Phosphatase 58 U/L (35-105); Aspartate Amino Transferase 5 U/L (0-32); Blood Urea Nitrogen 23 mg/dL (6-20); Calcium 7.9 mg/dL (8.5-10.5); Carbon Dioxide 29 mmol/L (22-29); Chloride 99 mmol/L (98-107); Globulin 2.5 g/dL (1.3-4.6); Glucose 96 mg/dL (65-115); Osmolality Calculated 284 mOsm/kg (285-295); Sodium 135 mmol/L (136-145); Total Bilirubin 0.7 mg/dL (0.15-1.2); Total Protein 5.3 g/dL (6.6-8.7)
[2023-03-30 12:36] VITALS: BP 80/39; PULSE 88; RESP 18; O2SAT 97
[2023-03-30 15:11] LABS: Add Urine Microscopic? YES; Bilirubin Urine Neg (Negative); Blood Urine Neg (Negative); Glucose Urine UA Norm (Normal); Ketones Urine Negative (Negative); Leukocyte Esterase Urine 2+ (Negative); Nitrate Urine Negative (Negative); Protein Urine Neg (Negative); Sulfosalicylic Acid Urine Negative (Negative); Urine Appearance SL Hazy (CLEAR); Urine Color Yellow (Yellow); Urobilinogen Urine Norm (Negative); pH Urine 8 (5-7)
[2023-03-30 15:30] LABS: Add Urine Culture? Yes; Bacteria Urine TRACE /hpf; Hyaline Casts Urine 0-4 /lpf; Mucus Urine TRACE /hpf; RBC Urine 0-4 /hpf (0-2); WBC Urine 25-40 /hpf (0-5)
== END 2023-03-30 14:48 | disposition home or self-care (01) ==
PROVIDERS: Emergency Provider Family Medicine; PCP Electrodiagnostic Medicine
DX: R60.0 Localized edema (principal); B37.2 Candidiasis of skin and nail; D64.9 Anemia, unspecified; C44.529 Squamous cell carcinoma of skin of other part of trunk
CPT/HCPCS: 80053; 81001; 83605; 85025; 87040; 87086; 93970; 99284

== ENCOUNTER 2023-04-15 15:15 | Oncology outpatient (recurring) (ONCR) | payer SELFPAY ==
[2023-03-23 15:39] VITALS: BP 110/74; PULSE 108; RESP 16; TEMP 36.3; O2SAT 97
[2023-03-23 16:06] LABS: Basophils % 0.1 %; Eosinophils % 0.1 %; Hematocrit 23.8 % (36-47); Lymphocytes # 0.3 10^3/uL (0.8-4.8); Lymphocytes % 2.7 %; Mean Corpuscular HGB Conc 31.5 g/dL (30-55); Mean Corpuscular Hemoglobin 32.3 pg (27-33); Mean Corpuscular Volume 102.6 fl (85-98); Mean Platelet Volume 9.5 fL (7.4-10.4); Monocytes # 0.6 10^3/uL (0.2-0.9); Monocytes % 5.3 %; Neutrophils # 9.76 10^3/uL (1.8-7.7); Neutrophils % 88.2 %; Nucleated Red Blood Cells % 0.3 %; Platelet Count 248 10^3/cmm (157-399); Red Blood Count 2.32 10^6/uL (3.85-5.65); Red Cell Distribution Width 19.9 % (12.1-15.1); White Blood Count 11.07 10^3/uL (3.29-11.43)
[2023-03-23 16:32] LABS: Alanine Aminotransferase 10 U/L (0-33); Albumin Level 3.2 g/dL (3.5-5.2); Alkaline Phosphatase 53 U/L (35-105); Aspartate Amino Transferase 6 U/L (0-32); Blood Urea Nitrogen 20 mg/dL (6-20); Calcium 7.9 mg/dL (8.5-10.5); Carbon Dioxide 26 mmol/L (22-29); Chloride 99 mmol/L (98-107); Globulin 2.4 g/dL (1.3-4.6); Glucose 113 mg/dL (65-115); Osmolality Calculated 287 mOsm/kg (285-295); Sodium 137 mmol/L (136-145); Total Bilirubin 0.3 mg/dL (0.15-1.2); Total Protein 5.6 g/dL (6.6-8.7)
[2023-03-24] VITALS (10 sets, daily range): BP systolic 102–141; BP diastolic 50–79; PULSE 75–99; RESP 16; TEMP 36.6–36.9; O2SAT 93–99
[2023-03-24] MEDS: sodium chloride 0.9% 500 ML 75 ML IV (08:41)
[2023-03-24] MEDS: diphenhydrAMINE 25 mg Capsule PO (08:41)
[2023-03-24] MEDS: acetaminophen 325 mg Tablet 650 MG PO (08:41)
[2023-03-24] MEDS: FUROsemide 10 mg/mL SDV 2mL 20 MG IVP (11:38)
[2023-04-15 15:06] VITALS: BP 93/65; PULSE 107; RESP 16; TEMP 36.5; O2SAT 95
== END 2023-04-19 23:59 | disposition home or self-care (01) ==
PROVIDERS: Absent Provider Radiology Radiation Oncology; PCP Electrodiagnostic Medicine; Visit Provider Internal Medicine Medical Oncology
DX: Z45.2 Encounter for adjustment and management of vascular access device (principal); Z53.9 Procedure and treatment not carried out, unspecified reason
CPT/HCPCS: 36415; 36430; 80053; 85025; 86850; 86900; 86920; 96375; J1642; J1940; J7040; P9040

== ENCOUNTER 2023-05-18 15:30 | Oncology outpatient (recurring) (ONCR) | payer SELFPAY ==
[2023-05-18 16:08] VITALS: BP 96/65; PULSE 55; RESP 16; TEMP 36.4; O2SAT 93
== END 2023-05-20 23:59 | disposition home or self-care (01) ==
PROVIDERS: Absent Provider Radiology Radiation Oncology; PCP Electrodiagnostic Medicine; Visit Provider Internal Medicine Medical Oncology
DX: Z53.9 Procedure and treatment not carried out, unspecified reason (principal); Z45.2 Encounter for adjustment and management of vascular access device
CPT/HCPCS: J1642

== ENCOUNTER 2023-05-25 15:32 | Inpatient (IN) | payer SELFPAY ==
--- NOTE | 2023-05-20 17:00 | CT_ITS ---
WS: [id number] CT CHEST, ABDOMEN AND PELVIS WITH CONTRAST HISTORY: restaging, squamous cell carcinoma. TECHNIQUE: Contiguous 5 mm axial imaging performed through the chest, abdomen and pelvis with IV cont rast, oral contrast has been provided. Coronal and sagittal reformats chest. Coronal and sagittal ref ormats through the abdomen and pelvis. All CT scans at [facility] use at least one of these d ose optimization techniques: automated exposure control; mA and/or kV adjustment per patient size (in cludes targeted exams where dose is matched to clinical indication); or iterative reconstruction. CONTRAST: Omnipaque 350; 100 mL IV. DLP: 1302.55 mGy.cm COMPARISON: 12/06/[address]: Moderate to large LEFT pleural effusion. Effusion is new since 12/06/2022 breathing motion a rtifact. There are several pulmonary nodules on the RIGHT which were not present on the prior exam. T hese nodules are in the upper and lower lung jama and predominantly in the periphery with the large st measuring 1.9 cm at the RIGHT hilum. There is marked pleural thickening in the LEFT lung. This ple ural thickening is predominant along the anterior and upper thorax and extends to the chest wall and intercostal muscles to the subcutaneous soft tissues. This is a contiguous mass which extends to the pleura and the lung. Air bronchograms and soft tissue predominantly extending into the lingula. There is also a component of compressive atelectasis at the lung base. There are numerous soft tissue masses centered in the LEFT chest wall predominately near the axilla. These have been previously described on 12/06/2022. Some of the masses have decreased in size. The lar sade mass which is invading the chest wall and intercostal muscles extending into the lung is new. Thi s large chest wall mass measures 5.4 x 9.4 cm and extends over a length of 10 cm along the chest wall . Mass extends into the intercostal muscles at several levels encasing the rib with involvement of th e lung. There are numerous additional soft tissue masses centered in the LEFT axilla. A single mass c ontains air which suggest necrosis or recent biopsy. Additional soft tissue infiltration is probably tumor involvement and/or edema. Small supraclavicular deposits which are probably lymph nodes. Subpec toralis lymph nodes. No enlarged lymph nodes on the RIGHT. Sclerotic bone changes involving the LEFT fourth rib. Heart is not enlarged. There does appear to be tumor involvement very closely associated with the per icardium. There is mild pericardial thickening. 1.0 cm RIGHT hilar lymph node appears abnormal. Abdomen CT: Liver is normal size. There are numerous low-attenuation masses within the liver which we re not seen on prior studies consistent with metastatic disease. Greater than 10 lesions are identifi ed with the largest in the RIGHT lobe measuring 2.5 x 1.9 cm. No bile duct dilatation. Gallbladder is normal. Normal spleen. No adrenal mass. Normal pancreas. Kidneys appear slightly small in size but a re enhancing normally. No obstruction. Mild atherosclerosis aorta. Stomach is well distended with contrast. No small bowel obstruction. Normal appendix. No colon obstru ction or colitis. No ascites and no mesenteric or retroperitoneal adenopathy appreciated. Pelvic CT: Well-distended urinary bladder. Coarse calcifications in the LEFT uterus from fibroid invo lvement. No free fluid and no adenopathy. There is extensive contiguous soft tissue infiltration not only over the chest but continues into the abdomen and pelvis. Majority of the soft tissue infiltration throughout the pelvis is bilateral and probably edema. No inguinal lymph nodes are identified. There are a few sclerotic changes within the ribs which may be metastatic bone disease. Focal area of sclerosis LEFT sacrum IMPRESSION: 1. Progression of metastatic disease since 12/06/2022. 2. Moderate to large LEFT pleural effusion. 3. Previously described metastatic masses centered in the LEFT axilla extending supraclavicular and to the chest wall have progressed. Some of the previously described masses have decreased in size. Th ere is now a large mass which is new invading the anterior upper LEFT chest wall. Mass measures 5.4 x 9.4 x 10.0 cm and extends through the intercostal muscles to involve the pleura. This mass extends i nto the lung and contacts and may involve the pericardium. 4. New metastatic pulmonary nodules throughout the RIGHT lung. 5. New metastatic nodules in the liver. 6. One of the metastatic deposits in the LEFT axilla contains air which may be an area of necrosis o r recent biopsy/intervention if that has been performed. 7. There is extensive soft tissue infiltration throughout the chest, abdomen and pelvis. Suspected s oft tissue infiltration is probably tumor near the axilla and edema throughout the rest of the body. 8. There are a few sclerotic changes within the bones which are indeterminate for metastatic sites. There is slight change involving the LEFT fourth rib at the site of the chest wall mass invasion.
[2023-05-25] VITALS (22 sets, daily range): BP systolic 99–100; BP diastolic 59–61; PULSE 87–96; RESP 8–14; TEMP 36.5; O2SAT 85–91
--- NOTE | 2023-05-25 17:44 | P.HP_ITS ---
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 Patient presented to the clinic today with weakness and fatigue and was found to have hyperkalemia and acute kidney injury for which she required IV fluids and 5 mg of oral Oxy codon after which she became lethargic. As per my conversation with oncology team Dr. Ervin patient has been reluctant about hospice though today patient wanted to transition patient to hospice care. On examination patient is awake, tired appearing but is AOx3 with at bedside. Patient is not agreeable for hospice for now. Also discuss further with the family before going on with hospice. For now we wants to continue have full code. Patient was saturating more than 92% on 4 L of oxygen supplementation, heart rate of 80 to 90 bpm. Review of Systems 2 General: Reports: 10 or more systems reviewed and unremarkable except in HPI and below Const: Denies: fever(s), chills, body aches, change in appetite, change in weight, malaise, night sweats, diaphoresis, change in sleep pattern, daytime sleepiness or snoring Eyes: Denies: change in vision, blurry vision, photophobia, eye discomfort or eye discharge ENMT: Denies: throat pain, enlarged tonsils, hoarseness, mouth pain, oral sores, dry mouth, tinnitus, nasal congestion or post nasal drip Card: Denies: chest pain, palpitations, irregular heart rhythm, edema, swelling of feet/ankles, lightheadedness, syncope, pre-syncope, dyspnea on exertion, orthopnea, leg pain with exertion or acrocyanosis Resp: Denies: dyspnea, productive cough, non-productive cough, wheezing, stridor, pain on inspiration, change in phlegm color, hemoptysis or chest congestion GI: Denies: abdominal pain, nausea, vomiting, hematemesis, coffee ground emesis, dysphagia, heartburn, diarrhea, constipation, bloating, GI cramping, change in bowel habits, pain on defecation, hematochezia or melena : Denies: flank pain, dysuria, urinary frequency, urinary urgency, urinary hesitancy, nocturia or hematuria Musc: Denies: neck pain, back pain, extremity pain, joint pain, joint swelling, joint redness, joint stiffness or limited range of motion Neuro: Denies: headache(s), numbness in extremities, weakness in extremities, sensory changes, lack of coordination, difficulty walking, frequent falls, dizziness, vertigo, confusion, Slurred speech present, difficulty communicating thoughts or seizure-like activity Psych: Denies: anxiety, depression, mood swings, panic attacks, hopelessness or irritability Endo: Denies: polyuria, polydipsia, tired all the time, cold intolerance, excessive sweating, flushing or heat intolerance Kirk/Lymph: Denies: easy bruising or easy bleeding All/Imm: Denies: tongue swelling, facial swelling or acute wheezing Medications/Allergies Home Medications Medication Instructions Recorded Confirmed Last Taken Type furosemide 40 mg tablet (Lasix) 40 mg PO DAILY #30 tabs 03/23/23 05/25/23 05/21/23 08:00 Rx potassium chloride 10 mEq 10 meq PO DAILY take with lasix 03/23/23 05/25/23 05/21/23 08:00 Rx capsule,extended release #30 caps levothyroxine 75 mcg tablet 75 mcg PO QAM #30 tabs 04/27/23 05/25/23 05/25/23 07:30 Rx 75 oxycodone 10 mg tablet 10 mg PO QID PRN pain 30 days #120 05/13/23 05/25/23 05/25/23 12:30 Rx tabs Allergies Allergy/AdvReac Type Severity Reaction Status Date / Time Penicillins Allergy rash Verified 05/25/23 10:47 PFSH Acute 2 PFSH: Medical History History of sebaceous cyst Myocardial injury Skin cancer Tobacco use disorder Surgical History History of delivery (1992) Family History Father Cancer Hyperlipidemia Hypertension Stroke Other CAD (coronary artery disease) Denies family history of Diabetes Clotting disorder Dementia Psychiatric illness Chronic kidney disease (CKD) Suicide Anesthesia complication Bleeding disorder Lung disease Social History Smoking and tobacco/nicotine status: current every day tobacco/nicotine user cigarettes Packs smoked per day: 0.75 Years cigarettes smoked: 35 Alcohol intake: never Substance/Drug Use: never Physical Exam 2 Narrative: General: No acute distress, AO x3, nasal cannula, chronically sick appearing, tired, lethargic HEENT: PERRLA, pupils bilaterally equal and reactive Chest: Bilateral bronchial breath sounds with scant tender in right hemithorax CVS: S1-S2 regular, no murmurs, no tachycardia, no gallops, no rubs Abdomen: Soft, nontender, no organomegaly, bowel sounds present Neuro: No focal deficits, no facial deformity, AO x3, power not checked Data 05/25/23 18:47 05/25/23 18:47 A&P Assessment and plan (1) Acute kidney injury: Baseline creatinine normal. Currently more than 3. Most likely in setting of dehydration. Cannot rule out mild tumor lysis syndrome. CT abdomen pelvis few days ago did not show any obstructive nephropathy. Medical reconciliation done for nephrotoxic drugs. Start on gentle IV hydration with NS at 100 cc/h. Watch for fluid overload. Strict input output charting. Hold open daily Lasix for now. Monitor BMP daily. Check urinalysis, urine lites, urine creatinine, uric acid, phosphorus level. (2) Acute hyperkalemia: Most likely in setting of oral potassium and MARYAN. D50 with 10 units of insulin, 1 g IV calcium gluconate. Repeat potassium. If still elevated will plan for Kayexalate. Telemetry. (3) Hyponatremia: IV fluid as above. Most likely secondary to dehydration. Check urine lites, urine creatinine, urine eosinophils. Monitor BMP in AM. 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 Ervin as an outpatient. Continue with home dose of oxycodone 10 mg 4 times daily as needed for now. (5) Superficial vein thrombosis: (6) Hypothyroidism: Check thyroid panel. Continue with home dose of levothyroxine for now. Uptitrate as per the results. (7) Goals of care, counseling/discussion: Sent in from the oncology department for possibility of hospice care. was agreeable. Patient is more awake and alert now. She states she is not sure about hospice for now and would like to discuss further with the family before making a decision. We discussed that given her mentation we will not be able to give her higher doses of pain medication because that can depress her respiratory status if she is not on hospice and we will continue the home dose of pain medications for now. Also discussed about CODE STATUS. Patient still wants to remain full code for now. She is okay with chest compressions and ventilator support if needed. Would want to discuss again further with her family about CODE STATUS. Plan Regular diet Heparin for DVT prophylaxis Protonix for PUD prophylaxis Full code Attestations 2 Medical Necessity Statement*: Admission for more than 2 midnights for management of acute kidney injury and hyperkalemia in setting of severe squamous cell carcinoma and further goals of care discussion Diagnoses Acute kidney injury N17.9 Acute hyperkalemia E87.5 Hyponatremia E87.1 Squamous cell carcinoma of skin of other part of trunk C44.529 Superficial vein thrombosis I82.890 Hypothyroidism E03.9 Goals of care, counseling/discussion Z71.89
[2023-05-25 19:08] LABS: Basophils % 0.1 %; Hematocrit 31.4 % (36-47); Lymphocytes # 0.1 10^3/uL (0.8-4.8); Lymphocytes % 1.5 %; Mean Corpuscular HGB Conc 33.1 g/dL (30-55); Mean Corpuscular Hemoglobin 32.2 pg (27-33); Mean Corpuscular Volume 97.2 fl (85-98); Mean Platelet Volume 8.6 fL (7.4-10.4); Monocytes # 0.1 10^3/uL (0.2-0.9); Monocytes % 0.9 %; Neutrophils # 7.86 10^3/uL (1.8-7.7); Neutrophils % 95.6 %; Nucleated Red Blood Cells % 0 %; Platelet Count 258 10^3/cmm (157-399); Red Blood Count 3.23 10^6/uL (3.85-5.65); Red Cell Distribution Width 16.7 % (12.1-15.1); White Blood Count 8.22 10^3/uL (3.29-11.43)
[2023-05-25 19:32] LABS: Alanine Aminotransferase < 5 U/L (0-33); Albumin Level 2.5 g/dL (3.5-5.2); Alkaline Phosphatase 131 U/L (35-105); Anion Gap 22.7 (5-19); Aspartate Amino Transferase 7 U/L (0-32); Blood Urea Nitrogen 49 mg/dL (6-20); Calcium 7.6 mg/dL (8.5-10.5); Carbon Dioxide 21 mmol/L (22-29); Chloride 84 mmol/L (98-107); Glomerular Filtration Rate 13.1 mL/min (90-130); Glucose 96 mg/dL (65-115); Osmolality Calculated 265 mOsm/kg (285-295); Sodium 121 mmol/L (136-145); Thyroid Stimulating Hormone 13.53 uIU/mL (0.27-4.20); Total Bilirubin 0.4 mg/dL (0.15-1.2); Total Protein 5.5 g/dL (6.6-8.7)
[2023-05-25 19:36] LABS: Potassium 6.7 mmol/L (3.5-5.1)
[2023-05-25] MEDS: calcium gluconate 0.9% NaCL 1 GM/50 ML PREMIX IV (20:53)
[2023-05-25] MEDS: dextrose 50% syringe 50 mL IVP ×2 (20:54→21:35)
[2023-05-25] MEDS: insulin regular-human 10 UNIT in SYRINGE 1 EACH IVP ×2 (20:55→21:35)
[2023-05-25] MEDS: sodium chloride 0.9% 1,000 ML 75 ML IV (20:56)
[2023-05-25 21:01] LABS: Free T4 Free Thyroxine 0.73 ng/dL (0.82-1.77)
[2023-05-25] MEDS: sodium polystyrene sulfonate 15 gm/60 mL Btl 30 GM PO (21:36)
[2023-05-25 21:59] LABS: Phosphorus 7.3 mg/dL (2.5-4.5); Potassium 6.2 mmol/L (3.5-5.1); Uric Acid 13.5 mg/dL (2.4-5.7)
[2023-05-26] VITALS (21 sets, daily range): BP systolic 90–96; BP diastolic 52–58; PULSE 80–99; RESP 9–22; TEMP 36.7–36.9; O2SAT 79–93; BMI 32.8
[2023-05-26 01:18] LABS: Amphetamines Screen Urine Negative (Negative); Barbiturates Screen Urine Negative (Negative); Benzodiazepines Screen Urine Negative (Negative); Cocaine Screen Urine Negative (Negative); Opiate Screen Urine Negative (Negative); PCP Screen Urine Negative (Negative); THC Screen Urine Negative (Negative)
[2023-05-26 01:23] LABS: Urine Creatinine 165 mg/dL (28-217)
--- NOTE | 2023-05-26 01:27 | XRR_ITS ---
PROCEDURE INFORMATION: Exam: XR Chest Exam date and time: 05/26/2023 1:45 AM Age: 57 years old Clinical indication: Other: Decreased lung sounds, SOB, low o2; Patient HX: Patient has cancer TECHNIQUE: Imaging protocol: Radiologic exam of the chest. Views: 1 view. COMPARISON: CT chest abdpel w/*[id number] 05/20/2023 5:00 PM FINDINGS: Tubes, catheters and devices: A right-sided peripherally inserted central catheter is noted with its tip overlying the expected course of the superior vena cava. Lungs: There is complete whiteout of the left hemithorax. Pleural spaces: Unremarkable. No pleural effusion. No pneumothorax. Heart/Mediastinum: Unremarkable. No cardiomegaly. Bones/joints: Unremarkable. XR/XR chest 1V portable [id number] IMPRESSION: Complete whiteout of the left hemithorax.
[2023-05-26 01:41] LABS: ABG PCO2 43.2 mmHg (35-45); ABG PH Result 7.35 (7.35-7.45); Alveolar-Arterial Oxygen Gradi 5.3 mmHg (5-10); Arterial Blood Gas Hematocrit 30.9 % (37-47); Base Excess ABG -1.7 mmol/L (-2.0-2.0); Blood Gas Allen Test Pos; Blood Gas Sample Site Radial, right; Blood Gas Sample Type Arterial; Carboxyhemoglobin 2.4 %THgb (0.4-20.1); HCO3 ABG 23.9 mmol/L (22-26); HGB O2 Sat 84.5 % (95-100); Ionized Calcium Level - ABG 1.1 mmol/L (1.1-1.4); Methemoglobin 0.2 % (0.4-1.5); Oxygen Device NRB; Oxygen Saturation ABG 86.8; PO2 ABG 56.7 mmHg (80.0-100.0); Potassium Level - ABG 5.7 mmol/L (3.5-5.0); Total Hemoglobin 10.1 g/dL (12-16)
--- NOTE | 2023-05-26 01:44 | PC.NURSE ---
Oxygen sats decreased to high high 70s and low 80s. Increased O2 to 6L NC. Notified respiratory and hospitalist. Given orders for a stat chest xray, ABG, and BiPap. Patient placed on non-rebreather at 15L, O2 sat at 87%.
[2023-05-26 02:00] LABS: Add Urine Microscopic? YES; Bilirubin Urine 1+ (Negative); Blood Urine 3+ (Negative); Glucose Urine UA Norm (Normal); Ketones Urine 1+ (Negative); Leukocyte Esterase Urine Trace (Negative); Nitrate Urine Negative (Negative); Protein Urine 1+ (Negative); Urine Appearance Cloudy (CLEAR); Urine Color Yellow (Yellow); Urobilinogen Urine Neg (Negative); pH Urine 5 (5-7)
[2023-05-26 02:01] LABS: Add Urine Culture? No; Amorphous Sediment Urine 1+ /hpf; Bacteria Urine 2+ /hpf; Mucus Urine 2+ /hpf; RBC Urine 15-25 /hpf (0-2); Squamous Epithelial Cell Urine 25-40 /hpf (0-5)
[2023-05-26 02:02] LABS: Potassium, Radom Urine 51 mmol/L
[2023-05-26 02:06] LABS: Urine Random Chloride 15 mmol/L; Urine Random Sodium 10 mmol/L
[2023-05-26] MEDS: albuterol 2.5 mg/3 mL Neb INHALATION (02:35)
[2023-05-26] MEDS: FUROsemide 10 mg/mL SDV 10mL 80 MG IVP (02:50)
[2023-05-26 03:56] LABS: Basophils % 0.1 %; Lymphocytes # 0.2 10^3/uL (0.8-4.8); Lymphocytes % 2.9 %; Mean Corpuscular HGB Conc 32.7 g/dL (30-55); Mean Corpuscular Hemoglobin 31.2 pg (27-33); Mean Corpuscular Volume 95.5 fl (85-98); Mean Platelet Volume 8.3 fL (7.4-10.4); Monocytes # 0.3 10^3/uL (0.2-0.9); Monocytes % 3.7 %; Neutrophils # 7.45 10^3/uL (1.8-7.7); Neutrophils % 91.2 %; Nucleated Red Blood Cells % 0 %; Platelet Count 253 10^3/cmm (157-399); Red Blood Count 3.14 10^6/uL (3.85-5.65); Red Cell Distribution Width 16.5 % (12.1-15.1); White Blood Count 8.17 10^3/uL (3.29-11.43)
[2023-05-26 04:21] LABS: Alanine Aminotransferase < 5 U/L (0-33); Albumin Level 2.5 g/dL (3.5-5.2); Alkaline Phosphatase 123 U/L (35-105); Anion Gap 22.2 (5-19); Aspartate Amino Transferase 8 U/L (0-32); Blood Urea Nitrogen 53 mg/dL (6-20); Carbon Dioxide 21 mmol/L (22-29); Chloride 87 mmol/L (98-107); Globulin 2.8 g/dL (1.3-4.6); Glucose 95 mg/dL (65-115); Magnesium 2.5 mg/dL (1.7-2.3); Osmolality Calculated 272 mOsm/kg (285-295); Potassium 6.2 mmol/L (3.5-5.1); Sodium 124 mmol/L (136-145); Total Bilirubin 0.4 mg/dL (0.15-1.2); Total Protein 5.3 g/dL (6.6-8.7)
[2023-05-26] MEDS: heparin 5,000 unit/mL INJ 1 mL 5000 UNIT SUBCUT (09:20)
[2023-05-26] MEDS: lactulose oral liq 20 gm/30 mL UDC 10 GM PO (10:32)
[2023-05-26] MEDS: morphine 4 mg/mL SDV 1 mL IVP ×4 (11:54→21:21)
--- NOTE | 2023-05-26 12:25 | PM.CONSULT ---
Providers/Reason For Consult Consulting Physician/Specialty*: Víctor Zuniga MD FCCP/pulmonary critical care Reason for Consult*: Large left pleural effusion Requesting Physician: Dr. 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 Patient presented to the oncology clinic yesterday with weakness and fatigue and was found to have hyperkalemia and acute kidney injury for which she required IV fluids and 5 mg of oral Oxy codon after which she became lethargic. Her most recent CT chest abdomen pelvis 05/20/2023 showed metastatic masses centered in the LEFT axilla extending supraclavicular and to the chest wall have progressed. Some of the previously described masses have decreased in size. There is now a large mass which is new invading the anterior upper LEFT chest wall. Mass measures 5.4 x 9.4 x 10.0 cm and extends through the intercostal muscles to involve the pleura. This mass extends into the lung and contacts and may involve the pericardium. There are new metastatic pulmonary nodules throughout the right lung also. New metastatic nodules in the liver. Extensive soft tissue infiltration throughout the chest abdomen pelvis. She is on BiPAP. Today morning-linoleum layer helper consulted as chest x-ray showed complete whiteout of left hemithorax to evaluate for edema pleural effusion that can be continue patient's symptomatic relief. Seen patient at bedside-she is extremely lethargic and currently on BiPAP. Discussed with patient's regarding overall goals of care-he is going to have discussions with family and will decide about hospice given patient's metastatic lung disease and poor outcome I checked with bedside ultrasound-however it did not show any significant pleural effusion Later-patient's family opted for comfort care and hospice Review of Systems General: Reports: 10 or more systems reviewed and unremarkable except in HPI and below Medications/Allergies Home Medications Medication Instructions Recorded Confirmed Last Taken Type furosemide 40 mg tablet (Lasix) 40 mg PO DAILY #30 tabs 03/23/23 05/25/23 05/21/23 08:00 Rx oxycodone 10 mg tablet 10 mg PO QID PRN pain 30 days #120 05/13/23 05/25/23 05/25/23 12:30 Rx tabs levothyroxine 75 mcg tablet 125 mcg (1.6667 x 75 mcg) PO QAM 05/27/23 05/25/23 05/25/23 07:30 Rx #30 tabs 75 Allergies Allergy/AdvReac Type Severity Reaction Status Date / Time Penicillins Allergy rash Verified 05/25/23 10:47 Current Medications Generic Name Dose Route Start Last Admin Trade Name Freq PRN Reason Stop Dose Admin Albuterol Sulfate 2.5 mg 05/26/23 02:32 05/26/23 02:35 Albuterol 2.5 Mg/3 Ml Neb INHALATION 2.5 mg Q4H.RESPIRATORY PRN Administration SHORTNESS OF BREATH Lactulose 10 gm 05/25/23 18:45 05/26/23 10:32 Lactulose Oral Liq 20 Gm/30 Ml Udc PO 10 gm DAILY PRN Administration Constipation (see protocol) Protocol Morphine Sulfate 2 - 10 mg 05/26/23 11:38 05/26/23 11:54 Morphine 4 Mg/Ml Sdv 1 Ml IVP 2 mg Q15M PRN Administration Moderate To Severe Pain or SOB PFSH Acute PFSH: Medical History Myocardial injury Tobacco use disorder Skin cancer History of sebaceous cyst Surgical History History of delivery (1992) Family History Father Cancer Hyperlipidemia Hypertension Stroke Other CAD (coronary artery disease) Denies family history of Diabetes Clotting disorder Dementia Psychiatric illness Chronic kidney disease (CKD) Suicide Anesthesia complication Bleeding disorder Lung disease Social History Smoking and tobacco/nicotine status: current every day tobacco/nicotine user cigarettes Packs smoked per day: 0.75 Years cigarettes smoked: 35 Alcohol intake: never Substance/Drug Use: never Vitals/I&O/Wt Last Vital Signs Temp 98.4 F 05/26/23 07:30 Pulse 91 05/26/23 11:16 Resp 20 H 05/26/23 11:54 BP 90/56 05/26/23 07:30 Pulse Ox 92 05/26/23 11:16 O2 Del Method BiPAP 05/26/23 08:37 O2 Flow Rate 6 05/26/23 02:00 FiO2 70 05/26/23 11:16 05/25/23 05/26/23 05/26/23 22:59 06:59 14:59 Intake Total 50.2 / 50.2 342.5 / 392.7 Output Total 350 / 350 Balance 50.2 / 50.2 -7.5 / 42.7 Weight last 48 hrs Weight 203 lb 4 oz Weight 204 lb Physical Exam Narrative: General: alert, extremely lethargic HEENT: conj clear, EOMI, PERRL, mmm, Inspection: Foul-smelling wound in the left chest area and axilla, tender to touch Percussion: Bilateral tympanic percussion note both anterior and posteriorly Auscultation: Reduced breath sounds on left lung zone Cardiovascular: rrr, nl s1s2, no mrg Abdomen: soft, nt, nd, no r/g, bs+ Extremities: pulses +, no edema, no c/c : no CVA tenderness Skin: intact, no rash MSK: no back or neck pain Neurologic: grossly intact Urinary Catheter Management: Shepherd: Cath Placed During This Visit: yes Reason for Continuing Indwelling Catheter: Accurate Measurement of Urinary Output in Critically Ill Patients Urinary Catheter Date of Insertion: 05/26/23 Urinary Catheter Time of Insertion: 03:24 Data 05/26/23 03:35 05/26/23 03:35 A&P Assessment and plan (1) Opacity of lung on imaging study: Patient had metastatic squamous cell cancer of skin is ulcerated foul-smelling wound on left chest wall Chest x-ray showed complete whiteout of left lung Bedside ultrasound did not show any effusion Explained family this is all extensive tumor burden (2) Goals of care, counseling/discussion: Discussed with patient's about patient's poor prognosis given her metastatic cancer Is going to discuss with family and hospitalist taking care about comfort care/hospice Coding Level of Care Code Acute Code for Chg Fwd Diagnoses Opacity of lung on imaging study R91.8 Goals of care, counseling/discussion Z71.89 Time Spent (min) 57 Comment Including goals of care discussion and bedside ultrasound examination
--- NOTE | 2023-05-26 12:56 | P.PN_ITS ---
Subjective 2 Subjective: Overnight patient had difficulty in breathing for which she was placed on BiPAP. Today morning on examination seen with at bedside. Patient is on BiPAP, somnolent but waking up to verbal and physical stimulus complaining of pain. Denies any nausea, vomiting. Appetite is poor. Minimal urine output. Vitals/I&O/Wt Last Vital Signs Temp 98.4 F 05/26/23 07:30 Pulse 99 05/26/23 12:00 Resp 22 H 05/26/23 12:00 BP 90/56 05/26/23 07:30 Pulse Ox 86 L 05/26/23 12:00 O2 Del Method Nasal Cannula 05/26/23 12:00 O2 Flow Rate 3 05/26/23 12:00 FiO2 70 05/26/23 11:16 05/25/23 05/26/23 05/26/23 22:59 06:59 14:59 Intake Total 50.2 / 50.2 342.5 / 392.7 Output Total 350 / 350 Balance 50.2 / 50.2 -7.5 / 42.7 Weight last 48 hrs Weight 89.811 kg Weight 92.193 kg Weight 92.533 kg Physical Exam 2 Narrative: General: No acute distress, somnolent, waking up to verbal stimulus, on BiPAP, chronically sick appearing, tired, lethargic HEENT: PERRLA, pupils bilaterally equal and reactive Chest: Bilateral bronchial breath sounds with scant tender in right hemithorax, decreased air entry in left hemithorax CVS: S1-S2 regular, no murmurs, no tachycardia, no gallops, no rubs Abdomen: Soft, nontender, no organomegaly, bowel sounds present Neuro: No focal deficits, no facial deformity, power not checked Urinary Catheter Management: Shepherd: Cath Placed During This Visit: yes Reason for Continuing Indwelling Catheter: Accurate Measurement of Urinary Output in Critically Ill Patients Urinary Catheter Date of Insertion: 05/26/23 Urinary Catheter Time of Insertion: 03:24 Data 05/26/23 03:35 05/26/23 03:35 A&P Assessment and plan (1) Acute kidney injury: Baseline creatinine normal. Currently more than 3. Most likely in setting of dehydration. Cannot rule out mild tumor lysis syndrome. CT abdomen pelvis few days ago did not show any obstructive nephropathy. Medical reconciliation done for nephrotoxic drugs. Start on gentle IV hydration with NS at 100 cc/h. Watch for fluid overload. Strict input output charting. Hold open daily Lasix for now. Monitor BMP daily. Check urinalysis, urine lites, urine creatinine, uric acid, phosphorus level. (2) Acute hyperkalemia: Most likely in setting of oral potassium and MARYAN. D50 with 10 units of insulin, 1 g IV calcium gluconate. Repeat potassium. If still elevated will plan for Kayexalate. Telemetry. (3) Hyponatremia: IV fluid as above. Most likely secondary to dehydration. Check urine lites, urine creatinine, urine eosinophils. Monitor BMP in AM. 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 Ervin as an outpatient. Continue with home dose of oxycodone 10 mg 4 times daily as needed for now. (5) Superficial vein thrombosis: (6) Hypothyroidism: Check thyroid panel. Continue with home dose of levothyroxine for now. Uptitrate as per the results. (7) Goals of care, counseling/discussion: Sent in from the oncology department for possibility of hospice care. was agreeable. Patient is more awake and alert now. She states she is not sure about hospice for now and would like to discuss further with the family before making a decision. We discussed that given her mentation we will not be able to give her higher doses of pain medication because that can depress her respiratory status if she is not on hospice and we will continue the home dose of pain medications for now. Also discussed about CODE STATUS. Patient still wants to remain full code for now. She is okay with chest compressions and ventilator support if needed. Would want to discuss again further with her family about CODE STATUS. (8) Hypoxic respiratory failure: (9) Hypotension: Plan 05/26: Patient continues to have persistent hyperkalemia even after multiple treatments along with worsening of renal function creatinine trending up 3.9 with minimal urine output. Overnight fluid was stopped because of developing of shortness of breath. Chest x-ray done shows whiteout of the left lung. Whiteout of the left lung most likely in setting of mucous plug versus worsening of the mass. Unlikely from pleural fluid. Appreciate pulmonary recommendations. Chest ultrasound does not show much fluid unfortunately. Patient is currently BiPAP dependent, somnolent but wakes up to verbal stimulus complaining of pain. Requesting BiPAP to be removed. Again had multiple detailed goals of care discussion with patient's and multiple family members at bedside. We discussed unfortunately patient is worsening with development of respiratory failure, worsening of renal failure with persistent hyperkalemia which is most likely in setting of worsening tumor burden. states he would like the patient/his to be as comfortable as possible. We discussed being comfortable would mean transition to hospice care which would mean goals being transitioned to keeping patient comfortable without active other treatment while nature takes its own course which would most likely mean that patient with past. verbalizes understanding and wants to go ahead with hospice care. Plan: No further blood work. Pain medication and anxiety medication as per hospice care. Vitals as per protocol. 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
--- NOTE | 2023-05-26 17:41 | USCV_ITS ---
Giacomo Plunkett Age: 57 Gender: F : 1965 Exam Date: 05/26/2023 06:39 Ordering Phys: Roldan Maher MD Technologist: Wolfgang Nelson [place] [facility] [place]: sob chest pain BP: / HR: Rhythm: Sinus Technical Quality: Very technically difficult study MEASUREMENTS (Male / Female) Normal Values FINDINGS Left Ventricle Right Ventricle Right Atrium Left Atrium Mitral Valve Aortic Valve Tricuspid Valve Pulmonic Valve Pericardium Aorta IVC CONCLUSIONS unable to image the heart in any standard cardiac view This study is uninterpretable Dr. Joshua Pike MD (Electronically Signed) Final Date: 26 May 2023 16:25 S
[2023-05-26] MEDS: LORazepam 2 mg/mL INJ 1 mL IVP (20:52)
[2023-05-27] MEDS: morphine 4 mg/mL SDV 1 mL IVP ×6 (01:18→14:34)
[2023-05-27 05:57] VITALS: BMI 32.5
--- NOTE | 2023-05-27 09:43 | PM.DCS ---
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: Status: Acute (5) Superficial vein thrombosis: Status: Acute (6) Hypothyroidism: Status: Acute (7) Goals of care, counseling/discussion: Status: Acute (8) Hypoxic respiratory failure: Status: Acute (9) Hypotension: Status: Acute Reason for Visit Reason for Visit: Squamous cell carcinoma of skin of other part of t Brief History: History as per HPI: Giacomo Plunkett is a 57 year old female with past history of advanced 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 Patient presented to the clinic today with weakness and fatigue and was found to have hyperkalemia and acute kidney injury for which she required IV fluids and 5 mg of oral Oxy codon after which she became lethargic. As per my conversation with oncology team Dr. Ervin patient has been reluctant about hospice though today patient wanted to transition patient to hospice care. On examination patient is awake, tired appearing but is AOx3 with at bedside. Patient is not agreeable for hospice for now. Also discuss further with the family before going on with hospice. For now we wants to continue have full code. Patient was saturating more than 92% on 4 L of oxygen supplementation, heart rate of 80 to 90 bpm. Hospital Course Hospital Course Patient was admitted to the hospital further evaluation and management of renal failure with hyperkalemia. She was started on aggressive treatment for hyperkalemia and IV hydration. Patient started having respiratory failure which was initially thought to be secondary to fluid overload but x-ray showed complete whiteout of left lung which is thought to be secondary to mucous plug versus infiltration of the mass. Pulmonary were consulted who discussed with the family about possibility of bronchoscopy. Further multiple goals of care discussions were done with patient's and multiple family members at bedside. We discussed unfortunately patient is worsening with development of respiratory failure, worsening of renal failure with persistent hyperkalemia which is most likely in setting of worsening tumor burden. states he would like the patient/his to be as comfortable as possible. We discussed being comfortable would mean transition to hospice care which would mean goals being transitioned to keeping patient comfortable without active other treatment while nature takes its own course which would most likely mean that patient with past. verbalizes understanding and wants to go ahead with hospice care. She has been discharged home with hospice for further management. Physical Exam Narrative: Awake and alert x 3 with at bedside, further examination deferred given hospice/comfort care status. Urinary Catheter Management: Shepherd: Cath Placed During This Visit: yes Reason for Continuing Indwelling Catheter: Hospice/Comfort/Palliative Care Urinary Catheter Date of Insertion: 05/26/23 Urinary Catheter Time of Insertion: 03:24 Discharge Data Studies Completed and Pending Completed Studies During Hospitalization Category Date Time Status CT chest abdpel w/*[id number] Urgent Cat Scan 05/20/23 17:00 Completed CXRP [XR chest 1V portable [id number]] Stat Exams 05/26/23 01:27 Completed CV. echo complete* [id number] Routine Ultrasound 05/26/23 17:41 Completed Radiology Impressions Chest X-Ray 05/26/23 01:27 IMPRESSION: Complete whiteout of the left hemithorax. ADDENDUM: 05/26/23 0443 THIS REPORT CONTAINS FINDINGS THAT MAY BE CRITICAL TO PATIENT CARE. The findings were verbally communicated via telephone conference with Ata Connolly at 4:40 AM LINUX UNIX ENGINEER on 05/26/2023. The findings were acknowledged and understood. Laboratory Results WBC 8.17 10^3/uL (3.29-11.43) 05/26/23 03:35 RBC 3.14 10^6/uL (3.85-5.65) L 05/26/23 03:35 Hgb 9.80 g/dL (11.27-16.99) L 05/26/23 03:35 Hct 30.0 % (36-47) L 05/26/23 03:35 MCV 95.5 fl (85-98) 05/26/23 03:35 MCH 31.2 pg (27-33) 05/26/23 03:35 MCHC 32.7 g/dL (30-55) 05/26/23 03:35 RDW 16.5 % (12.1-15.1) H 05/26/23 03:35 Plt Count 253 10^3/cmm (157-399) 05/26/23 03:35 MPV 8.3 fL (7.4-10.4) 05/26/23 03:35 Neut % (Auto) 91.2 % 05/26/23 03:35 Lymph % (Auto) 2.9 % 05/26/23 03:35 [place] % (Auto) 3.7 % 05/26/23 03:35 Eos % (Auto) 0.0 % 05/26/23 03:35 Baso % (Auto) 0.1 % 05/26/23 03:35 Neut # (Auto) 7.45 10^3/uL (1.8-7.7) 05/26/23 03:35 Lymph # (Auto) 0.2 10^3/uL (0.8-4.8) L 05/26/23 03:35 [place] # (Auto) 0.3 10^3/uL (0.2-0.9) 05/26/23 03:35 Eos # (Auto) 0.0 10^3/uL (0.0-0.8) 05/26/23 03:35 Baso # (Auto) 0.0 10^3/uL (0.0-0.1) 05/26/23 03:35 Nucleated RBC % (auto) 0 % 05/26/23 03:35 Nucleated RBCs # 0.0 /100WBC 05/26/23 03:35 Specimen Type Arterial 05/26/23 01:30 Sample Site Radial, right 05/26/23 01:30 ABG pH 7.35 (7.35-7.45) 05/26/23 01:30 ABG pCO2 43.2 mmHg (35-45) 05/26/23 01:30 ABG pO2 56.7 mmHg (80.0-100.0) L 05/26/23 01:30 ABG HCO3 23.9 mmol/L (22-26) 05/26/23 01:30 ABG O2 Saturation 86.8 05/26/23 01:30 ABG Base Excess -1.7 mmol/L (-2.0-2.0) 05/26/23 01:30 Gideon Test Pos 05/26/23 01:30 A-a O2 Gradient 5.3 mmHg (5-10) 05/26/23 01:30 Hematocrit 30.9 % (37-47) L 05/26/23 01:30 Hgb O2 Saturation 84.5 % (95-100) L 05/26/23 01:30 Carboxyhemoglobin 2.4 %THgb (0.4-20.1) 05/26/23 01:30 Methemoglobin 0.2 % (0.4-1.5) L 05/26/23 01:30 Total Hemoglobin 10.1 g/dL (12-16) L 05/26/23 01:30 Sodium 123.0 mmol/L (131-143) L 05/26/23 01:30 Potassium 5.7 mmol/L (3.5-5.0) H 05/26/23 01:30 Glucose 98.0 mg/dL (70-115) 05/26/23 01:30 Ionized Calcium 1.1 mmol/L (1.1-1.4) 05/26/23 01:30 O2 Delivery Device Nrb 05/26/23 01:30 O2 Liters/Min 15.0 % 05/26/23 01:30 Tape Control Skin Or [employer] [place] Operator ID [email or web address] 05/26/23 01:30 Sodium 124 mmol/L (136-145) L 05/26/23 03:35 Potassium 6.2 mmol/L (3.5-5.1) H 05/26/23 03:35 Chloride 87 mmol/L (98-107) L 05/26/23 03:35 Carbon Dioxide 21 mmol/L (22-29) L 05/26/23 03:35 Anion Gap 22.2 (5-19) H 05/26/23 03:35 BUN 53 mg/dL (6-20) H 05/26/23 03:35 Creatinine 3.9 mg/dL (0.5-0.9) H 05/26/23 03:35 GFR Calculation 12.0 mL/min (90-130) L 05/26/23 03:35 Glucose 95 mg/dL (65-115) 05/26/23 03:35 Calculated Osmolality 272 mOsm/kg (285-295) L 05/26/23 03:35 Uric Acid 13.5 mg/dL (2.4-5.7) H 05/25/23 21:28 Calcium 8.0 mg/dL (8.5-10.5) L 05/26/23 03:35 Phosphorus 7.0 mg/dL (2.5-4.5) H 05/26/23 03:35 Magnesium 2.5 mg/dL (1.7-2.3) H 05/26/23 03:35 Total Bilirubin 0.4 mg/dL (0.15-1.2) 05/26/23 03:35 AST 8 U/L (0-32) 05/26/23 03:35 ALT < 5 U/L (0-33) 05/26/23 03:35 Alkaline Phosphatase 123 U/L (35-105) H 05/26/23 03:35 Total Protein 5.3 g/dL (6.6-8.7) L 05/26/23 03:35 Albumin 2.5 g/dL (3.5-5.2) L 05/26/23 03:35 Globulin 2.8 g/dL (1.3-4.6) 05/26/23 03:35 TSH 13.53 uIU/mL (0.27-4.20) H 05/25/23 18:47 Free T4 0.73 ng/dL (0.82-1.77) L 05/25/23 18:47 Urine Color Yellow (Yellow) 05/26/23 01:00 Urine Appearance Cloudy (CLEAR) A 05/26/23 01:00 Urine pH 5 (5-7) 05/26/23 01:00 Ur Specific [place] 1.030 (1.005-1.030) 05/26/23 01:00 Urine Protein 1+ (Negative) H 05/26/23 01:00 Urine Glucose (UA) Norm (Normal) 05/26/23 01:00 Urine Ketones 1+ (Negative) H 05/26/23 01:00 Urine Blood 3+ (Negative) H 05/26/23 01:00 Urine Nitrate Negative (Negative) 05/26/23 01:00 Urine Bilirubin 1+ (Negative) H 05/26/23 01:00 Urine Urobilinogen Neg mg/dL (Negative) 05/26/23 01:00 Ur Leukocyte Esterase Trace (Negative) H 05/26/23 01:00 Urine RBC 15-25 /hpf (0-2) H 05/26/23 01:00 Urine WBC 5-10 /hpf (0-5) H 05/26/23 01:00 Ur Squamous Epith Cells 25-40 /hpf (0-5) H 05/26/23 01:00 Amorphous Sediment 1+ /hpf 05/26/23 01:00 Urine Bacteria 2+ /hpf (NONE) H 05/26/23 01:00 Urine Mucus 2+ /hpf 05/26/23 01:00 Urine Yeast 2+ /hpf H 05/26/23 01:00 Ur Random Sodium 10 mmol/L 05/26/23 01:00 Ur Random Potassium 51 mmol/L 05/26/23 01:00 Ur Random Chloride 15 mmol/L 05/26/23 01:00 Urine Creatinine 165 mg/dL (28-217) 05/26/23 01:00 Urine Opiates Screen Negative ng/mL (Negative) 05/26/23 01:00 Ur Barbiturates Screen Negative ng/mL (Negative) 05/26/23 01:00 Ur Phencyclidine Scrn Negative ng/mL (Negative) 05/26/23 01:00 Ur Amphetamines Screen Negative ng/mL (Negative) 05/26/23 01:00 U Benzodiazepines Scrn Negative ng/mL (Negative) 05/26/23 01:00 Urine Cocaine Screen Negative ng/mL (Negative) 05/26/23 01:00 U Marijuana (THC) Screen Negative ng/mL (Negative) 05/26/23 01:00 Vitals Last Vital Signs Temp 98.4 F 05/26/23 07:30 Pulse 90 05/26/23 14:00 Resp 18 05/26/23 21:21 BP 90/56 05/26/23 07:30 Pulse Ox 92 05/26/23 21:21 O2 Del Method Nasal Cannula 05/26/23 12:00 O2 Flow Rate 3 05/26/23 12:00 FiO2 70 05/26/23 11:16 Discharge Plan Discharge Patient Disposition: Hospice - Home Condition: Stable Prescriptions: Continued furosemide [Lasix] 40 mg tablet 40 mg PO DAILY Qty: 30 0RF oxycodone 10 mg tablet 10 mg PO QID PRN (Reason: pain) 30 Days Qty: 120 0RF Changed levothyroxine 75 mcg tablet 125 mcg PO QAM Qty: 30 0RF Discontinued potassium chloride 10 mEq capsule, extended release 10 meq PO DAILY Qty: 30 0RF Discharge Orders: Discharge Order (Routine); Ordered 05/27/23 Ordered By: Roldan Maher Discharge Diet: As Directed Discharge Activity: Limit activity as instructed Patient Instructions: Acute Kidney Injury (DC), Hypotension (DC), Acute Respiratory Failure (GEN), Opioid Safety Activity Restrictions/Additional Instructions: Home Hospice Discharge Attestations Time Spent in Discharge Care*: greater than 30 min Specific Discharge Activities: educating patient, educating and/or supporting family/caregiver, discussing with pcp/other providers, discussing with case technician/social workers/dc planners, documenting/other paperwork and evaluating patient/reviewing data Status at Discharge: Cognitive status at discharge: mildly impaired cognition, Behavioral status at discharge: cooperative, Functional status at discharge: wheelchair bound, Overall status at discharge: patient is back to baseline Quality Metrics Clinical Quality Measures [ No reported AMI, CVA or VTE this stay] Coding Level of Care Code 63326 Total time (in minutes) for Discharge: 50 Diagnoses Acute kidney injury N17.9 Acute hyperkalemia E87.5 Hyponatremia E87.1 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
[2023-05-27 10:26] VITALS: RESP 22
[2023-05-27 14:34] VITALS: RESP 20
--- NOTE | 2023-05-27 15:06 | PC.NURSE ---
Provider is notified that patient is going home with her current indwelling catheter and her current PICC line, that was placed in Nov 2023. Family is taking her by private car and she has hospice care at home.
== END 2023-05-27 15:29 | disposition hospice, home (50) | DRG 640 ==
LOC: CSU 18:21
PROVIDERS: Internal Medicine; Admitting Provider Student in an Organized Health Care Education/Training Program; PCP Electrodiagnostic Medicine; Visit Provider Student in an Organized Health Care Education/Training Program
DX: E87.5 Hyperkalemia (principal); J96.91 Respiratory failure, unspecified with hypoxia; N17.9 Acute kidney failure, unspecified; C78.7 Secondary malignant neoplasm of liver and intrahepatic bile duct; C78.01 Secondary malignant neoplasm of right lung; C78.2 Secondary malignant neoplasm of pleura; C79.2 Secondary malignant neoplasm of skin; C79.89 Secondary malignant neoplasm of other specified sites; E87.1 Hypo-osmolality and hyponatremia; E03.9 Hypothyroidism, unspecified; F17.210 Nicotine dependence, cigarettes, uncomplicated; Z71.89 Other specified counseling; C44.529 Squamous cell carcinoma of skin of other part of trunk; Z51.5 Encounter for palliative care
CPT/HCPCS: 36415; 36416; 36600; 51702; 71045; 71260; 74177; 80051; 80053; 80306; 81001; 82330; 82436; 82570; 82805; 82962; 83735; 84100; 84132; 84133; 84300; 84439; 84443; 84550; 85025; 93306; 94640; 94660; 96372; 96376; J0610; J1644; J1815; J1940; J2060; J2270; J7030; J7613; Q9967

== ENCOUNTER 2023-06-01 15:30 | Oncology outpatient (recurring) (ONCR) | payer SELFPAY ==
[2023-05-25 09:28] LABS: Basophils % 0.2 %; Eosinophils % 0.1 %; Lymphocytes # 0.4 10^3/uL (0.8-4.8); Lymphocytes % 3.7 %; Mean Corpuscular HGB Conc 32.9 g/dL (30-55); Mean Corpuscular Hemoglobin 31.9 pg (27-33); Mean Corpuscular Volume 97.2 fl (85-98); Mean Platelet Volume 8.3 fL (7.4-10.4); Monocytes # 0.4 10^3/uL (0.2-0.9); Monocytes % 3.7 %; Neutrophils # 9.94 10^3/uL (1.8-7.7); Neutrophils % 90.3 %; Nucleated Red Blood Cells % 0 %; Platelet Count 350 10^3/cmm (157-399); Red Cell Distribution Width 16.7 % (12.1-15.1); White Blood Count 11.01 10^3/uL (3.29-11.43)
[2023-05-25 09:44] LABS: Alanine Aminotransferase < 5 U/L (0-33); Albumin Level 2.6 g/dL (3.5-5.2); Alkaline Phosphatase 147 U/L (35-105); Anion Gap 23.1 (5-19); Aspartate Amino Transferase 9 U/L (0-32); Blood Urea Nitrogen 50 mg/dL (6-20); Calcium 8.2 mg/dL (8.5-10.5); Carbon Dioxide 23 mmol/L (22-29); Chloride 82 mmol/L (98-107); Globulin 3.2 g/dL (1.3-4.6); Glucose 87 mg/dL (65-115); Osmolality Calculated 267 mOsm/kg (285-295); Potassium 6.1 mmol/L (3.5-5.1); Sodium 122 mmol/L (136-145); Total Bilirubin 0.6 mg/dL (0.15-1.2); Total Protein 5.8 g/dL (6.6-8.7)
[2023-05-25] MEDS: sodium chloride 0.9% 1,000 ML 250 ML IV (11:55)
[2023-05-25 12:05] LABS: Cortisol Random 30.87 ug/dL (2.47-19.5)
[2023-05-25 13:15] VITALS: RESP 16
[2023-05-25] MEDS: oxyCODONE 5 mg IR Tab/Cap PO (13:15)
[2023-05-25] MEDS: ipratropium-albuterol 3 mL Neb INHALATION (16:43)
--- NOTE | 2023-05-25 17:25 | PC.NURSE ---
Pt in infusion suite for steroids and hydration. After pt finished 1L of hydration (4 hours), pt was difficult to wake. Multiple attempts were made to get pt to open eyes. Pt responded to painful stimuli. Pt is hypotensive. Spoke with Flavio Mcclendon NP and Dr. Ervin. Both providers agree pt needs to be admitted. Staff took pt to CSU for direct admit. Report given to CSU nurse. YANET
[2023-05-26 00:04] LABS: Glucose Point of Care 112 mg/dL (70-110)
== END 2023-06-18 23:59 | disposition home or self-care (01) ==
PROVIDERS: Nurse Practitioner Family; Absent Provider Radiology Radiation Oncology; PCP Electrodiagnostic Medicine; Visit Provider Internal Medicine Medical Oncology
DX: Z53.9 Procedure and treatment not carried out, unspecified reason (principal)
CPT/HCPCS: 36415; 36416; 80053; 82533; 82962; 85025; 96361; 96365; J1100; J1642; J7030